=== PATIENT | female | born 1945 | race Caucasian/White ===

== ENCOUNTER 2016-11-24 15:42 | Inpatient (IN) | payer OTHER ==
[~2016-11-24] VITALS: Ht 160 cm; Wt 84.8 kg
[2016-11-24] MEDS ORDERED: IPRATRPIUM/ALBUTEROL 0.5/2.5MG 3 ML NEBU. NEB ONE (16:00)
[2016-11-24] MEDS ORDERED: methylPREDNISolone SOD SUCC PF 125 MG/2 ML VIAL. IV ONE (16:00)
[2016-11-24 16:05] LABS: BASO % 1 % (0-3); EOS % 7 % (0-3); HEMATOCRIT 43.7 % (36.0-47.0); HEMOGLOBIN 14.7 g/dL (12.0-15.5); LYMPH # 1.2 x10^3/uL (1.0-4.8); LYMPH % 15 % (24-48); MEAN CORPUSCULAR HEMOGLOBIN 29 pg (25-35); MEAN CORPUSCULAR HGB CONC 34 g/dL (31-37); MEAN CORPUSCULAR VOLUME 86 fL (79-100); MONO % 16 % (0-9); NEUT % 63 % (31-73); PLATELET COUNT 214 x10^3/uL (140-400); RED BLOOD COUNT 5.11 x10^6/uL (3.50-5.40); RED CELL DISTRIBUTION WIDTH 14.7 % (11.5-14.5); WHITE BLOOD COUNT 8.3 x10^3/uL (4.0-11.0)
--- NOTE | 2016-11-24 16:08 | RAD ---
Exam performed: One view chest. Indication: shortness of airtoday Date of Service: 11/24/2016 5:47 PM Comparison: None available. Single AP upright portable view chest findings: Cardiomediastinal silhouette is within limits of normal. No acute infiltrates, effusion or pneumothorax is detected. The bony structures are normal. Impression: No acute cardiopulmonary process is detected.
[2016-11-24 16:25] LABS: CALCIUM 9.7 mg/dL (8.5-10.1); GFR 54.5; POTASSIUM 4.4 mmol/L (3.5-5.1)
[2016-11-24 16:31] LABS: ALBUMIN 3.3 g/dL (3.4-5.0); ALBUMIN/GLOBULIN RATIO 0.7 (1.0-1.7); TOTAL BILIRUBIN 0.3 mg/dL (0.2-1.0); TOTAL PROTEIN 7.9 g/dL (6.4-8.2)
[2016-11-24 16:39] LABS: OBC FLU VALID
[2016-11-24 16:42] LABS: CKMB INDEX 1.7 % (0-4); CKMB MASS 1.8 ng/mL (0.0-3.6)
--- NOTE | 2016-11-24 16:49 | PHYS DOC ---
Past Medical History Past Medical History: COPD, Depression, High Cholesterol, Hypertension Past Surgical History: Hysterectomy, Tonsillectomy Alcohol Use: None Drug Use: None Adult General Chief Complaint Chief Complaint: SHORTNESS OF BREATH HPI HPI Patient is a 71 year old female brought to the ED by ambulance with the complaint of shortness of air. The patient has been becoming more short of air since Saturday. She is much worse today. Her family helped her to the car and they were given a bring her to the ED but she became so short of air that they ended up calling 911. She does have a history of COPD. She does not Use home oxygen. She does have inhalers at home. She has not had fever or chills, she has had a cough. She hasn't been hospitalized for COPD. PCP [facility] in [place] Review of Systems Review of Systems Constitutional: Denies fever or chills [] Eyes: Denies change in visual acuity, redness, or eye pain [] HENT: Denies nasal congestion or sore throat [] Respiratory: As in history of present illness Cardiovascular: Denies chest pain GI: Denies abdominal pain, nausea, vomiting, bloody stools or diarrhea [] : Denies dysuria or hematuria [] Musculoskeletal: Denies back pain or joint pain [] Integument: Denies rash or skin lesions [] Neurologic: Denies headache, focal weakness or sensory changes [] Current Medications Current Medications Current Medications Medications (Trade) Dose Ordered Sig/Lance Start Time Stop Time Status Last Admin Dose Admin Albuterol/ Ipratropium (Duoneb) 3 ml 1X ONCE 11/24/16 16:00 11/24/16 16:01 DC 11/24/16 15:52 3 ML Methylprednisolone Sodium Succinate (Solu-Medrol 125mg Vial) 80 mg 1X ONCE 11/24/16 16:00 11/24/16 16:01 DC 11/24/16 16:03 80 MG Allergies Allergies Allergies Coded Allergies Type Severity Reaction Last Updated Verified Penicillins Allergy Intermediate RASH 11/24/16 Yes Physical Exam Physical Exam Constitutional: Elderly female sitting up on the cart getting a nebulizer treatment via oxygen mask with dyspnea but is alert and mentating normally. HENT: Normocephalic, atraumatic, bilateral external ears normal, nose normal. [ ] Eyes: conjunctiva normal, no discharge. [] Neck: Normal range of motion, no stridor. [] Cardiovascular:Heart rate regular tachycardia, no murmur [] Lungs & Thorax: Moderately decreased breath sounds throughout with prolonged expiratory phase and expiratory wheezes throughout Abdomen: Bowel sounds normal, soft, no tenderness, no masses, no pulsatile masses. [] Skin: Warm, dry, no erythema, no rash. [] Extremities: No tenderness, no cyanosis, no clubbing, ROM intact, no edema. [] Neurologic: Alert and oriented X 3, normal motor function, normal sensory function, no focal deficits noted. [] Current Patient Data Vital Signs Vital Signs Date Time Temp Pulse Resp B/P Pulse Ox O2 Delivery O2 Flow Rate FiO2 11/24/16 16:00 98 153/53 99 Aerosol Mask 11/24/16 15:52 15.0 11/24/16 15:46 98.6 30 98.6 Lab Values Laboratory Tests Test 11/24/16 15:44 11/24/16 15:47 White Blood Count 8.3x10^3/uL (4.0-11.0) Red Blood Count 5.11x10^6/uL (3.50-5.40) Hemoglobin 14.7g/dL (12.0-15.5) Hematocrit 43.7% (36.0-47.0) Mean Corpuscular Volume 86fL (79-100) Mean Corpuscular Hemoglobin 29pg (25-35) Mean Corpuscular Hemoglobin Concent 34g/dL (31-37) Red Cell Distribution Width 14.7% (11.5-14.5) H Platelet Count 214x10^3/uL (140-400) Neutrophils (%) (Auto) 63% (31-73) Lymphocytes (%) (Auto) 15% (24-48) L Monocytes (%) (Auto) 16% (0-9) H Eosinophils (%) (Auto) 7% (0-3) H Basophils (%) (Auto) 1% (0-3) Neutrophils # (Auto) 5.2x10^3uL (1.8-7.7) Lymphocytes # (Auto) 1.2x10^3/uL (1.0-4.8) Monocytes # (Auto) 1.3x10^3/uL (0.0-1.1) H Eosinophils # (Auto) 0.6x10^3/uL (0.0-0.7) Basophils # (Auto) 0.0x10^3/uL (0.0-0.2) Sodium Level 139mmol/L (136-145) Potassium Level 4.4mmol/L (3.5-5.1) Chloride Level 100mmol/L (98-107) Carbon Dioxide Level 32mmol/L (21-32) Anion Gap 7 (6-14) Blood Urea Nitrogen 15mg/dL (7-20) Creatinine 1.0mg/dL (0.6-1.0) Estimated GFR (Cockcroft-Gault) 54.5 BUN/Creatinine Ratio 15 (6-20) Glucose Level 92mg/dL (70-99) Calcium Level 9.7mg/dL (8.5-10.1) Total Bilirubin 0.3mg/dL (0.2-1.0) Aspartate Amino Transferase (AST) 19U/L (15-37) Alanine Aminotransferase (ALT) 21U/L (14-59) Alkaline Phosphatase 96U/L (46-116) Creatine Kinase 108U/L (26-192) Creatine Kinase MB (Mass) 1.8ng/mL (0.0-3.6) Creatine Kinase MB Relative Index 1.7% (0-4) Troponin I Quantitative < 0.017ng/mL (0.000-0.055) KO-[id number]-Type Natriuretic Peptide 242pg/mL (0-124) H Total Protein 7.9g/dL (6.4-8.2) Albumin 3.3g/dL (3.4-5.0) L Albumin/Globulin Ratio 0.7 (1.0-1.7) L Influenza Type A Antigen Negative (NEGATIVE) Influenza Type B Antigen Negative (NEGATIVE) Laboratory Tests 11/24/16 15:44 Laboratory Tests 11/24/16 15:44 EKG EKG 12-lead EKG read by me. Sinus tachycardia. Heart rate 101. There are no acute ST or T wave changes indicative of ischemia or infarction. No STEMI. 1550 [] Radiology/Procedures Radiology/Procedures One view portable chest x-ray read by me. No acute cardiopulmonary process. [] Course & Med Decision Making Course & Med Decision Making Pertinent Labs and Imaging studies reviewed. (See chart for details) 71-year-old lady with COPD exacerbation. She came and getting a DuoNeb via EMS and stated it had helped her quite a bit, she was given a second DuoNeb on arrival to the ED. She was given IV steroids. She continued to be hypoxic and required oxygen but it was able to be dialed down to about 2 L prior to leaving to go to the floor. Her dyspnea improved greatly at rest but she did get up and make a short walk to the bathroom and became very dyspneic prior to being sent to her room. I discussed the case with Dr. Alarcon, [facility]. She will admit the patient. I wrote bridge orders. [] Dragon Disclaimer Dragon Disclaimer This electronic medical record was generated, in whole or in part, using a voice recognition dictation system. Departure Departure Impression: Primary Impression: COPD exacerbation Disposition: ADMITTED INPATIENT Admitting Physician: So Alarcon Condition: STABLE Referrals: NAM SCHAFER (PCP) ROMAINE MACIEL MD Nov 24, 2016 16:49
--- NOTE | 2016-11-24 16:53 | ACF ---
Admission Forms Criteria COPD Clinical Indications for Admission to Inpatient Care (Place 'X' for any and all applicable criteria): Admission is indicated for ANY ONE of the following (1)(2)(3): [X]I. Acute exacerbation by high-risk comorbidity (e.g., pneumonia, dysrhythmia, heart failure, pleural effusion, pneumothorax) or severe underlying COPD (e.g., steroid dependent) [ ]II. Inpatient admission required rather than observation care (see Chronic Obstructive Pulmonary Disease: Observation Care) because of ANY ONE of the following: [ ]a) New or pre-existing signs or symptoms of COPD (eg, dyspnea or Tachypnea at rest or with minimal activity) that persist despite outpatient and observation care treatment [ ]b) New-onset hypoxemia (room air SaO2 less than 90%, PO2 less than 60 mm Hg (8.0 kPa)) that persists despite outpatient and observation care treatment [ ]c) Worsening of pre-existing hypoxemia (eg, new or increased requirement for supplemental oxygen to maintain oxygenation at baseline level) that persists despite outpatient and observation care treatment, with oxygen treatment needs performable only in acute inpatient setting [ ]d) Hypercarbia (PCO2 greater than 40 mm Hg (5.3 kPa))-induced respiratory acidosis (pH less than 7.35) that persists despite outpatient and observation care treatment [ ]e) Supplemental oxygen or respiratory treatments for over 24 hours that are performable only in acute inpatient setting [ ]f) Chest tube placement with active evacuation (e.g., suction, drainage) (5) [ ]g) Other condition, treatment or monitoring requiring inpatient admission [ ]III. Planned invasive surgical or diagnostic procedures requiring acute- care hospitalization [ ]IV. Acute respiratory failure (e.g., uncompensated hypercarbia, severe hypoxemia) [ ]V. Severe comorbid condition (e.g., severe steroid myopathy, acute vertebral fracture) that has acutely worsened pulmonary function [ ]. Confusion state, lethargy, obtundation, stupor or coma Extended stay beyond goal length of stay may be needed for (31)(32): [ ]a ) Respiratory Failure. [ ]b) Severe or persisting hypoxemia or hypercarbia [ ]c) Severe or persistent dyspnea [ ]d) Comorbidities (e.g. chronic heart failure, atrial fibrillation with rapid response, pneumonia) [ ]e) Malnutrition The original [facility] content created by [facility] has been revised. The portions of the content which have been revised are identified through the use of italic text or in bold, and [facility] has neither reviewed nor approved the modified material. All other unmodified content is copyright [facility]. Please see references footnoted in the original [facility] edition 2016 Admission Criteria Met?: Yes ESPERANZA GREENFIELD Nov 24, 2016 16:53
[2016-11-24 18:07] VITALS: BP 139/73
[2016-11-24 18:09] VITALS: BP 139/73
--- NOTE | 2016-11-24 18:25 | PDOC1 ---
History and Physical Date of Admission Date of Admission 11/24/16 Identification/Chief Complaint Chief Complaint sob Problems: Source Source: Chart review, Patient History of Present Illness History of Present Illness 71yo f, COMES for sob. Pt has copd, no home o2. smoker. was on cymbicort before, then switch to advair since insurance wont pay. as per pt, advair not helping her, so she stopped using it. only use albuterol prn. In the past 4 days, she has runny nose, mild cough, then severe sob. no chest pain, no fever, chills, N/V. no sick contact. in ER, need non breather, then change to NC 4L. pt feels ok now, still sob tho. Past Medical History Past Medical History copd Past Surgical History Past Surgical History: Hysterectomy Family History Family History: No Significant Social History Smoke: 1 pack per day ALCOHOL: social Drugs: None Current Problem List Problem List Problems Medical Problems: (1) COPD exacerbation Status: Acute Current Medications Current Medications Current Medications Medications (Trade) Dose Ordered Sig/Lance Start Time Stop Time Status Last Admin Dose Admin Albuterol/ Ipratropium (Duoneb) 3 ml RTQID 11/24/16 20:00 11/25/16 19:59 Methylprednisolone Sodium Succinate (Solu-Medrol 125mg Vial) 80 mg 1X ONCE 11/24/16 16:00 11/24/16 16:01 DC 11/24/16 16:03 80 MG Allergies Allergies Allergies Coded Allergies Type Severity Reaction Last Updated Verified Penicillins Allergy Intermediate RASH 11/24/16 Yes ROS Review of System CONSTITUTIONAL: No fever or chills EYES: No recent changes SKIN: No rash or itching CARDIOVASCULAR: No chest pain, syncope, palpitations, or edema RESPIRATORY: No SOB or cough GASTROINTESTINAL: No nausea, vomiting or abdominal pain NEUROLOGICAL: No headaches or weakness ENDOCRINE: No cold or heat intolerance GENITOURINARY: No urgency or frequency of urination MUSCULOSKELETAL: No back pain or joint pain LYMPHATICS: No enlarged lymph nodes PSYCHIATRIC: No anxiety or depression Physical Exam Physical Exam GEN.: No apparent distress. Alert and oriented. HEENT: Head is normocephalic, atraumatic NECK: Supple. LUNGS: bl decreased bs, no wheezing HEART: RRR, S1, S2 present. Peripheral pulses intact ABDOMEN: Soft, nontender. Positive bowel sounds. EXTREMITIES: Without any cyanosis. NEUROLOGIC: Normal speech, normal tone PSYCHIATRIC: Normal affect, normal mood. SKIN: No ulcerations Vitals Vitals Vital Signs Date Time Temp Pulse Resp B/P Pulse Ox O2 Delivery O2 Flow Rate FiO2 11/24/16 18:09 97.5 95 22 139/73 91 Nasal Cannula 4.0 97.5 Labs Labs Laboratory Tests Test 11/24/16 15:44 11/24/16 15:47 White Blood Count 8.3x10^3/uL (4.0-11.0) Red Blood Count 5.11x10^6/uL (3.50-5.40) Hemoglobin 14.7g/dL (12.0-15.5) Hematocrit 43.7% (36.0-47.0) Mean Corpuscular Volume 86fL (79-100) Mean Corpuscular Hemoglobin 29pg (25-35) Mean Corpuscular Hemoglobin Concent 34g/dL (31-37) Red Cell Distribution Width 14.7% (11.5-14.5) Platelet Count 214x10^3/uL (140-400) Neutrophils (%) (Auto) 63% (31-73) Lymphocytes (%) (Auto) 15% (24-48) Monocytes (%) (Auto) 16% (0-9) Eosinophils (%) (Auto) 7% (0-3) Basophils (%) (Auto) 1% (0-3) Neutrophils # (Auto) 5.2x10^3uL (1.8-7.7) Lymphocytes # (Auto) 1.2x10^3/uL (1.0-4.8) Monocytes # (Auto) 1.3x10^3/uL (0.0-1.1) Eosinophils # (Auto) 0.6x10^3/uL (0.0-0.7) Basophils # (Auto) 0.0x10^3/uL (0.0-0.2) Sodium Level 139mmol/L (136-145) Potassium Level 4.4mmol/L (3.5-5.1) Chloride Level 100mmol/L (98-107) Carbon Dioxide Level 32mmol/L (21-32) Anion Gap 7 (6-14) Blood Urea Nitrogen 15mg/dL (7-20) Creatinine 1.0mg/dL (0.6-1.0) Estimated GFR (Cockcroft-Gault) 54.5 BUN/Creatinine Ratio 15 (6-20) Glucose Level 92mg/dL (70-99) Calcium Level 9.7mg/dL (8.5-10.1) Total Bilirubin 0.3mg/dL (0.2-1.0) Aspartate Amino Transf (AST/SGOT) 19U/L (15-37) Alanine Aminotransferase (ALT/SGPT) 21U/L (14-59) Alkaline Phosphatase 96U/L (46-116) Creatine Kinase 108U/L (26-192) Creatine Kinase MB (Mass) 1.8ng/mL (0.0-3.6) Creatine Kinase MB Relative Index 1.7% (0-4) Troponin I Quantitative < 0.017ng/mL (0.000-0.055) MT-Bqo-D-Type Natriuretic Peptide 242pg/mL (0-124) Total Protein 7.9g/dL (6.4-8.2) Albumin 3.3g/dL (3.4-5.0) Albumin/Globulin Ratio 0.7 (1.0-1.7) Influenza Type A Antigen Negative (NEGATIVE) Influenza Type B Antigen Negative (NEGATIVE) Laboratory Tests Test 11/24/16 15:44 11/24/16 15:47 White Blood Count 8.3x10^3/uL (4.0-11.0) Red Blood Count 5.11x10^6/uL (3.50-5.40) Hemoglobin 14.7g/dL (12.0-15.5) Hematocrit 43.7% (36.0-47.0) Mean Corpuscular Volume 86fL (79-100) Mean Corpuscular Hemoglobin 29pg (25-35) Mean Corpuscular Hemoglobin Concent 34g/dL (31-37) Red Cell Distribution Width 14.7% (11.5-14.5) Platelet Count 214x10^3/uL (140-400) Neutrophils (%) (Auto) 63% (31-73) Lymphocytes (%) (Auto) 15% (24-48) Monocytes (%) (Auto) 16% (0-9) Eosinophils (%) (Auto) 7% (0-3) Basophils (%) (Auto) 1% (0-3) Neutrophils # (Auto) 5.2x10^3uL (1.8-7.7) Lymphocytes # (Auto) 1.2x10^3/uL (1.0-4.8) Monocytes # (Auto) 1.3x10^3/uL (0.0-1.1) Eosinophils # (Auto) 0.6x10^3/uL (0.0-0.7) Basophils # (Auto) 0.0x10^3/uL (0.0-0.2) Sodium Level 139mmol/L (136-145) Potassium Level 4.4mmol/L (3.5-5.1) Chloride Level 100mmol/L (98-107) Carbon Dioxide Level 32mmol/L (21-32) Anion Gap 7 (6-14) Blood Urea Nitrogen 15mg/dL (7-20) Creatinine 1.0mg/dL (0.6-1.0) Estimated GFR (Cockcroft-Gault) 54.5 BUN/Creatinine Ratio 15 (6-20) Glucose Level 92mg/dL (70-99) Calcium Level 9.7mg/dL (8.5-10.1) Total Bilirubin 0.3mg/dL (0.2-1.0) Aspartate Amino Transf (AST/SGOT) 19U/L (15-37) Alanine Aminotransferase (ALT/SGPT) 21U/L (14-59) Alkaline Phosphatase 96U/L (46-116) Creatine Kinase 108U/L (26-192) Creatine Kinase MB (Mass) 1.8ng/mL (0.0-3.6) Creatine Kinase MB Relative Index 1.7% (0-4) Troponin I Quantitative < 0.017ng/mL (0.000-0.055) KS-Vvx-D-Type Natriuretic Peptide 242pg/mL (0-124) Total Protein 7.9g/dL (6.4-8.2) Albumin 3.3g/dL (3.4-5.0) Albumin/Globulin Ratio 0.7 (1.0-1.7) Influenza Type A Antigen Negative (NEGATIVE) Influenza Type B Antigen Negative (NEGATIVE) VTE Prophylaxis Ordered VTE Prophylaxis Devices: Yes VTE Pharmacological Prophylaxi: Yes Assessment/Plan Assessment/Plan 1. acute hypoxic resp failure with 2 2. copd exacerbation 3. tobaccoism 4. hld 5. htn 6. depression 7. mild malnutrition plan: 1. pulm consult 2. duoneb, doxy prednisone 40mg daily 3. robitussin prn 4. pulmicort dvt, gi ppx educate to stop smoke AME ESPINOZA MD Nov 24, 2016 18:25
[2016-11-24] MEDS ORDERED: ONDANSETRON PF 4 MG/2 ML VIAL. IV PRN (18:30)
[2016-11-24] MEDS ORDERED: ACETAMINOPHEN 325 MG TABLET. PO PRN (18:30)
[2016-11-24] MEDS ORDERED: ALBUTEROL SULFATE 2.5 MG/3 ML NEBU. NEB PRN (18:30)
[2016-11-24] MEDS: BUDESONIDE 0.5 MG/2 ML NEBU NEB SCH (19:23)
[2016-11-24] MEDS: IPRATRPIUM/ALBUTEROL 0.5/2.5MG 3 ML NEBU. NEB SCH ×2 (19:23)
[2016-11-24] MEDS: DOXYCYCLINE HYCLATE 100 MG TABLET PO SCH (20:17)
[2016-11-24] MEDS: FAMOTIDINE 20 MG TABLET. PO SCH (20:17)
[2016-11-24] MEDS: ENOXAPARIN 40 MG/0.4 ML DISP.SYRIN. SQ SCH (20:17)
[2016-11-24 22:32] VITALS: BP 140/56
[2016-11-24] MEDS: DIPHENHYDRAMINE HCL 25 MG CAPSULE PO PRN (23:42)
[2016-11-25 03:00] VITALS: BP 153/54
[2016-11-25 07:00] VITALS: BP 124/54
[2016-11-25] MEDS: DOXYCYCLINE HYCLATE 100 MG TABLET PO SCH ×2 (07:51→20:00)
[2016-11-25] MEDS: PREDNISONE 20 MG TABLET PO SCH (07:52)
[2016-11-25] MEDS: IPRATRPIUM/ALBUTEROL 0.5/2.5MG 3 ML NEBU. NEB SCH ×6 (07:56→20:00)
[2016-11-25] MEDS: BUDESONIDE 0.5 MG/2 ML NEBU NEB SCH (07:56)
--- NOTE | 2016-11-25 09:37 | PDOC ---
Provider Note Provider Note dictated AECOPD FRANCES CHAPARRO MD Nov 25, 2016 09:37
--- NOTE | 2016-11-25 10:44 | CONS ---
DATE OF CONSULTATION: ATTENDING PHYSICIAN: Dr. Alarcon. REASON FOR CONSULTATION: Dyspnea. HISTORY OF PRESENT ILLNESS: This is a 71-year-old female, who has been a smoker since age 10, continues to smoke 1 pack per day. Normally, she is not on oxygen. She presented to the hospital with a 4-day history of shortness of breath. She has a cough, which has been nonproductive. No fever, no chills, no chest pains, no headaches. No nausea, vomiting or diarrhea. The patient was initially placed on nonrebreather mask. Currently, she is on 4 liters of oxygen. Influenza screen was negative. Chest x-ray was clear. She was started on bronchodilators and received a dose of steroids. I have been asked to see her for further evaluation. PAST MEDICAL HISTORY: Significant for history of COPD with ongoing tobaccoism since age 10. Unknown FEV1. PAST SURGICAL HISTORY: Hysterectomy. FAMILY HISTORY: Noncontributory to lungs. ALLERGIES: PENICILLIN. CURRENT MEDICATIONS: Reviewed as listed in the MRAD. REVIEW OF SYSTEMS: Twelve-point systems obtained. Pertinent positives discussed in my history of present illness, otherwise noncontributory. All systems that were negative were reviewed as well. PHYSICAL EXAMINATION: GENERAL: She is awake, following commands. VITAL SIGNS: Blood pressure is stable. Pulse ox 92% on 4 liters, afebrile. HEENT: Sclerae nonicteric. NECK: Supple. LUNGS: Diminished breath sounds bilaterally. No wheezing. CARDIOVASCULAR: Regular rate and rhythm. ABDOMEN: Soft, nontender. EXTREMITIES: No pitting edema. LABORATORY DATA: Reviewed. BUN 15, creatinine 1.0. Influenza screen negative. White cell count 8.3, hemoglobin 14.7, platelets are 214. IMPRESSION: 1. Dyspnea with acute hypoxic respiratory failure secondary to acute exacerbation of chronic obstructive pulmonary disease in the patient, who has been smoking since age 10 and continues to smoke cigarettes. 2. Possible acute viral bronchitis. Chest x-ray is clear. 3. Underlying obesity. RECOMMENDATIONS: 1. Smoking cessation counseling provided. 2. Continue DuoNeb. 3. Continue Pulmicort. 4. Continue with oral prednisone taper. 5. Taper oxygen slowly. Keep sats 92% and above. 6. We will need a 6-minute walk test at the time of discharge. 7. PFTs as an outpatient. FRANCES CHAPARRO MD DR: ODILIA/marlon JOB#: [id number] / [id number] E Wilcox MDD
[2016-11-25 11:00] VITALS: BP 135/57
[2016-11-25] MEDS ORDERED: FLUT1DIS5 IH (11:39)
[2016-11-25] MEDS ORDERED: SIMV20TA3 PO (11:39)
[2016-11-25] MEDS ORDERED: LISI-334 PO (11:39)
[2016-11-25] MEDS ORDERED: MIRT30TA3 PO (11:39)
[2016-11-25] MEDS ORDERED: PROAIR HFA8.5 GM INH (11:39)
--- NOTE | 2016-11-25 12:48 | EKG ---
[facility] [address] [place] [address] Test Date: 2016-11-24 Test Time: 15:50:46 Pat Name: NOHEMY SCHREIBER Department: Room: Gender: F Artist'S Representative: : 1945 Requested By: ROMAINE MACIEL Order Number: [id number] Reading MD: Measurements Intervals [place] Rate: 101 P: 81 OK: 168 QRS: 42 QRSD: 76 T: 63 QT: 350 QTc: 455 Interpretive Statements SINUS TACHYCARDIA RIGHT ATRIAL ENLARGEMENT QRS(T) CONTOUR ABNORMALITY CONSISTENT WITH INFERIOR INFARCT PROBABLY OLD T ABNORMALITY IN HIGH LATERAL LEADS RI6.01 Unconfirmed report No previous ECG available for comparison
[2016-11-25] MEDS ORDERED: NON FORMULARY ITEM (Albuterol Sulfate (Proair Hfa Inhaler) 1 PUFF) INH PRN (14:00)
--- NOTE | 2016-11-25 14:29 | PDOC ---
PROGRESS NOTES Chief Complaint Chief Complaint 1. acute hypoxic resp failure with 2 2. copd exacerbation 3. tobaccoism 4. hld 5. htn 6. depression 7. mild malnutrition plan: 1. pulm consult 2. duoneb, doxy prednisone 40mg daily 3. robitussin prn 4. pulmicort dvt, gi ppx educate to stop smoke hope dc tmr, need 6min walk History of Present Illness History of Present Illness on NC 3 L, sob better + wheezing Vitals Vitals Vital Signs Date Time Temp Pulse Resp B/P Pulse Ox O2 Delivery O2 Flow Rate FiO2 11/25/16 11:39 92 Nasal Cannula 4.0 11/25/16 11:00 96.4 74 20 135/57 96.4 Physical Exam General: Alert, Oriented X3, Cooperative Heart: Regular rate, Normal S1, Normal S2 Lungs: Wheezing (bl mild) Abdomen: Normal bowel sounds, Soft Extremities: No clubbing, No cyanosis Labs LABS Laboratory Tests Test 11/24/16 15:44 11/24/16 15:47 White Blood Count 8.3x10^3/uL (4.0-11.0) Red Blood Count 5.11x10^6/uL (3.50-5.40) Hemoglobin 14.7g/dL (12.0-15.5) Hematocrit 43.7% (36.0-47.0) Mean Corpuscular Volume 86fL (79-100) Mean Corpuscular Hemoglobin 29pg (25-35) Mean Corpuscular Hemoglobin Concent 34g/dL (31-37) Red Cell Distribution Width 14.7% (11.5-14.5) Platelet Count 214x10^3/uL (140-400) Neutrophils (%) (Auto) 63% (31-73) Lymphocytes (%) (Auto) 15% (24-48) Monocytes (%) (Auto) 16% (0-9) Eosinophils (%) (Auto) 7% (0-3) Basophils (%) (Auto) 1% (0-3) Neutrophils # (Auto) 5.2x10^3uL (1.8-7.7) Lymphocytes # (Auto) 1.2x10^3/uL (1.0-4.8) Monocytes # (Auto) 1.3x10^3/uL (0.0-1.1) Eosinophils # (Auto) 0.6x10^3/uL (0.0-0.7) Basophils # (Auto) 0.0x10^3/uL (0.0-0.2) Sodium Level 139mmol/L (136-145) Potassium Level 4.4mmol/L (3.5-5.1) Chloride Level 100mmol/L (98-107) Carbon Dioxide Level 32mmol/L (21-32) Anion Gap 7 (6-14) Blood Urea Nitrogen 15mg/dL (7-20) Creatinine 1.0mg/dL (0.6-1.0) Estimated GFR (Cockcroft-Gault) 54.5 BUN/Creatinine Ratio 15 (6-20) Glucose Level 92mg/dL (70-99) Calcium Level 9.7mg/dL (8.5-10.1) Total Bilirubin 0.3mg/dL (0.2-1.0) Aspartate Amino Transf (AST/SGOT) 19U/L (15-37) Alanine Aminotransferase (ALT/SGPT) 21U/L (14-59) Alkaline Phosphatase 96U/L (46-116) Creatine Kinase 108U/L (26-192) Creatine Kinase MB (Mass) 1.8ng/mL (0.0-3.6) Creatine Kinase MB Relative Index 1.7% (0-4) Troponin I Quantitative < 0.017ng/mL (0.000-0.055) AY-Snj-M-Type Natriuretic Peptide 242pg/mL (0-124) Total Protein 7.9g/dL (6.4-8.2) Albumin 3.3g/dL (3.4-5.0) Albumin/Globulin Ratio 0.7 (1.0-1.7) Influenza Type A Antigen Negative (NEGATIVE) Influenza Type B Antigen Negative (NEGATIVE) Review of Systems Review of Systems no fever, chills, chest pain Assessment and Plan Assessmemt and Plan Problems Medical Problems: (1) COPD exacerbation Status: Acute Problems: Comment Review of Relevant I have reviewed the following items anand (where applicable) has been applied. Labs Laboratory Tests Test 11/24/16 15:44 11/24/16 15:47 White Blood Count 8.3x10^3/uL (4.0-11.0) Red Blood Count 5.11x10^6/uL (3.50-5.40) Hemoglobin 14.7g/dL (12.0-15.5) Hematocrit 43.7% (36.0-47.0) Mean Corpuscular Volume 86fL (79-100) Mean Corpuscular Hemoglobin 29pg (25-35) Mean Corpuscular Hemoglobin Concent 34g/dL (31-37) Red Cell Distribution Width 14.7% (11.5-14.5) Platelet Count 214x10^3/uL (140-400) Neutrophils (%) (Auto) 63% (31-73) Lymphocytes (%) (Auto) 15% (24-48) Monocytes (%) (Auto) 16% (0-9) Eosinophils (%) (Auto) 7% (0-3) Basophils (%) (Auto) 1% (0-3) Neutrophils # (Auto) 5.2x10^3uL (1.8-7.7) Lymphocytes # (Auto) 1.2x10^3/uL (1.0-4.8) Monocytes # (Auto) 1.3x10^3/uL (0.0-1.1) Eosinophils # (Auto) 0.6x10^3/uL (0.0-0.7) Basophils # (Auto) 0.0x10^3/uL (0.0-0.2) Sodium Level 139mmol/L (136-145) Potassium Level 4.4mmol/L (3.5-5.1) Chloride Level 100mmol/L (98-107) Carbon Dioxide Level 32mmol/L (21-32) Anion Gap 7 (6-14) Blood Urea Nitrogen 15mg/dL (7-20) Creatinine 1.0mg/dL (0.6-1.0) Estimated GFR (Cockcroft-Gault) 54.5 BUN/Creatinine Ratio 15 (6-20) Glucose Level 92mg/dL (70-99) Calcium Level 9.7mg/dL (8.5-10.1) Total Bilirubin 0.3mg/dL (0.2-1.0) Aspartate Amino Transf (AST/SGOT) 19U/L (15-37) Alanine Aminotransferase (ALT/SGPT) 21U/L (14-59) Alkaline Phosphatase 96U/L (46-116) Creatine Kinase 108U/L (26-192) Creatine Kinase MB (Mass) 1.8ng/mL (0.0-3.6) Creatine Kinase MB Relative Index 1.7% (0-4) Troponin I Quantitative < 0.017ng/mL (0.000-0.055) AN-Drs-Q-Type Natriuretic Peptide 242pg/mL (0-124) Total Protein 7.9g/dL (6.4-8.2) Albumin 3.3g/dL (3.4-5.0) Albumin/Globulin Ratio 0.7 (1.0-1.7) Influenza Type A Antigen Negative (NEGATIVE) Influenza Type B Antigen Negative (NEGATIVE) Laboratory Tests Test 11/24/16 15:44 11/24/16 15:47 White Blood Count 8.3x10^3/uL (4.0-11.0) Red Blood Count 5.11x10^6/uL (3.50-5.40) Hemoglobin 14.7g/dL (12.0-15.5) Hematocrit 43.7% (36.0-47.0) Mean Corpuscular Volume 86fL (79-100) Mean Corpuscular Hemoglobin 29pg (25-35) Mean Corpuscular Hemoglobin Concent 34g/dL (31-37) Red Cell Distribution Width 14.7% (11.5-14.5) Platelet Count 214x10^3/uL (140-400) Neutrophils (%) (Auto) 63% (31-73) Lymphocytes (%) (Auto) 15% (24-48) Monocytes (%) (Auto) 16% (0-9) Eosinophils (%) (Auto) 7% (0-3) Basophils (%) (Auto) 1% (0-3) Neutrophils # (Auto) 5.2x10^3uL (1.8-7.7) Lymphocytes # (Auto) 1.2x10^3/uL (1.0-4.8) Monocytes # (Auto) 1.3x10^3/uL (0.0-1.1) Eosinophils # (Auto) 0.6x10^3/uL (0.0-0.7) Basophils # (Auto) 0.0x10^3/uL (0.0-0.2) Sodium Level 139mmol/L (136-145) Potassium Level 4.4mmol/L (3.5-5.1) Chloride Level 100mmol/L (98-107) Carbon Dioxide Level 32mmol/L (21-32) Anion Gap 7 (6-14) Blood Urea Nitrogen 15mg/dL (7-20) Creatinine 1.0mg/dL (0.6-1.0) Estimated GFR (Cockcroft-Gault) 54.5 BUN/Creatinine Ratio 15 (6-20) Glucose Level 92mg/dL (70-99) Calcium Level 9.7mg/dL (8.5-10.1) Total Bilirubin 0.3mg/dL (0.2-1.0) Aspartate Amino Transf (AST/SGOT) 19U/L (15-37) Alanine Aminotransferase (ALT/SGPT) 21U/L (14-59) Alkaline Phosphatase 96U/L (46-116) Creatine Kinase 108U/L (26-192) Creatine Kinase MB (Mass) 1.8ng/mL (0.0-3.6) Creatine Kinase MB Relative Index 1.7% (0-4) Troponin I Quantitative < 0.017ng/mL (0.000-0.055) VA-Xeh-W-Type Natriuretic Peptide 242pg/mL (0-124) Total Protein 7.9g/dL (6.4-8.2) Albumin 3.3g/dL (3.4-5.0) Albumin/Globulin Ratio 0.7 (1.0-1.7) Influenza Type A Antigen Negative (NEGATIVE) Influenza Type B Antigen Negative (NEGATIVE) Medications Current Medications Albuterol/ Ipratropium (Duoneb) 3 ml 1X ONCE NEB Last administered on 15:52; Start 11/24/16 at 16:00; Stop 11/24/16 at 16:01; Status DC Methylprednisolone Sodium Succinate (Solu-Medrol 125mg Vial) 80 mg 1X ONCE IV Last administered on 11/24/16 16:03; Start 11/24/16 at 16:00; Stop 11/24/16 at 16:01; Status DC Albuterol/ Ipratropium (Duoneb) 3 ml RTQID NEB Last administered on 11/25/16 11:37; Start 11/24/16 at 20:00; Stop 11/25/16 at 19:59 Acetaminophen (Tylenol) 650 mg PRN Q6HRS PRN PO MILD PAIN / TEMP; Start at 18:30 Ondansetron HCl (Zofran) 4 mg PRN Q6HRS PRN IV NAUSEA/VOMITING; Start 11/24/16 at 18:30 Albuterol/ Ipratropium (Duoneb) 3 ml RTQID NEB ; Start 11/24/16 at 20:00 Albuterol Sulfate (Ventolin Neb Soln) 2.5 mg PRN Q4HRS PRN NEB SHORTNESS OF BREATH; Start 11/24/16 at 18:30 Prednisone (Prednisone) 40 mg DAILY PO Last administered on 11/25/16 07:52; Start 11/25/16 at 09:00 Budesonide (Pulmicort) 0.5 mg RTBID NEB Last administered on 11/25/16 07:56; Start 11/24/16 at 20:00 Doxycycline Hyclate (Vibra-Tab) 100 mg BID PO Last administered on 11/25/16 07 :51; Start 11/24/16 at 21:00 Guaifenesin (Robitussin) 200 mg PRN Q4HRS PRN PO COUGH; Start 11/24/16 at 18:30 Enoxaparin Sodium (Lovenox 40mg Syringe) 40 mg Q24H SQ Last administered on 20:17; Start 11/24/16 at 21:00 Famotidine (Pepcid) 20 mg QHS PO Last administered on 11/24/16 20:17; Start at 21:00 Diphenhydramine HCl (Benadryl) 25 mg PRN Q6HRS PRN PO ITCHING Last administered on 11/24/16 23:42; Start 11/24/16 at 23:15 Lisinopril (Prinivil) 20 mg DAILY PO ; Start 11/25/16 at 14:30 Simvastatin (Zocor) 20 mg QHS PO ; Start 11/25/16 at 21:00 Non-Formulary Medication 1 puff PRN Q6HRS PRN INH SHORTNESS OF BREATH; Start at 14:00; Status UNV Non-Formulary Medication 1 puff BID IH ; Start 11/25/16 at 21:00; Status UNV Mirtazapine (Remeron) 30 mg QHS PO ; Start 11/25/16 at 21:00 Albuterol Sulfate (Ventolin Neb Soln) 2.5 mg PRN Q6HRS PRN NEB SHORTNESS OF BREATH; Start 11/25/16 at 14:30 Albuterol Sulfate (Ventolin Neb Soln) 2.5 mg RTQID NEB ; Start 11/25/16 at 16:00 Budesonide (Pulmicort) 0.5 mg RTBID NEB ; Start 11/25/16 at 20:00 Active Scripts Active Reported Proair Hfa Inhaler (Albuterol Sulfate) 8.5 Gm Hfa.aer.ad 1 Puff INH PRN Q6HRS PRN Advair 500-50 Diskus (Fluticasone/Salmeterol) 1 Each Disk.w.dev 1 Puff IH BID Mirtazapine 30 Mg Tablet 1 Tab PO QHS Simvastatin 20 Mg Tablet 1 Tab PO QHS Lisinopril 20 Mg Tablet 1 Tab PO DAILY Vitals/I & O Vital Sign - Last 24 Hours 11/24/16 11/24/16 11/24/16 11/24/16 15:46 15:52 16:00 17:00 Temp 98.6 98.6 Pulse 104 98 92 Resp 30 B/P 180/68 153/53 140/60 Pulse Ox 99 99 91 O2 Delivery Aerosol Mask Aerosol Mask Aerosol Mask Nasal Cannula O2 Flow Rate 15.0 3 11/24/16 11/24/16 11/24/16 11/24/16 18:07 18:09 19:00 19:26 Temp 97.5 97.5 97.5 97.5 Pulse 95 95 Resp 22 22 B/P 139/73 139/73 Pulse Ox 91 91 O2 Delivery Nasal Cannula Nasal Cannula Nasal Cannula Nasal Cannula O2 Flow Rate 4.0 4.0 4.0 4.0 11/24/16 11/24/16 11/25/16 11/25/16 19:27 22:32 03:00 07:00 Temp 97.7 97.7 96.1 97.7 97.7 96.1 Pulse 80 77 76 Resp 19 20 22 B/P 140/56 153/54 124/54 Pulse Ox 95 94 92 O2 Delivery Nasal Cannula Nasal Cannula Nasal Cannula Nasal Cannula O2 Flow Rate 4.0 4.0 4.0 4.0 11/25/16 11/25/16 11/25/16 11/25/16 07:58 08:00 11:00 11:39 Temp 96.4 96.4 Pulse 74 Resp 20 B/P 135/57 Pulse Ox 92 92 92 O2 Delivery Nasal Cannula Nasal Cannula Nasal Cannula Nasal Cannula O2 Flow Rate 4.0 4.0 4.0 4.0 Intake and Output 11/24/16 11/24/16 11/25/16 15:00 23:00 07:00 Intake Total 250 ml Balance 250 ml AME ESPINOZA MD Nov 25, 2016 14:29
[2016-11-25] MEDS ORDERED: ALBUTEROL SULFATE 2.5 MG/3 ML NEBU. NEB PRN (14:30)
[2016-11-25] MEDS: LISINOPRIL 20 MG TABLET PO SCH (14:33)
[2016-11-25 15:00] VITALS: BP 128/55
[2016-11-25] MEDS: ALBUTEROL SULFATE 2.5 MG/3 ML NEBU. NEB SCH ×2 (16:00→20:52)
[2016-11-25 19:50] VITALS: BP 115/55
[2016-11-25] MEDS: FAMOTIDINE 20 MG TABLET. PO SCH (20:00)
[2016-11-25] MEDS ORDERED: BUDESONIDE 0.5 MG/2 ML NEBU NEB SCH (20:00)
[2016-11-25] MEDS: SIMVASTATIN 20 MG TABLET PO SCH (20:00)
[2016-11-25] MEDS: MIRTAZAPINE 15 MG TABLET PO SCH (20:00)
[2016-11-25] MEDS: ENOXAPARIN 40 MG/0.4 ML DISP.SYRIN. SQ SCH (20:02)
[2016-11-25] MEDS: GUAIFENESIN 200 MG/10 ML LIQUID. PO PRN (20:07)
[2016-11-25] MEDS ORDERED: NON FORMULARY ITEM (Fluticasone/Salmeterol (Advair 500-50 Diskus) 1 PUFF) IH SCH (21:00)
[2016-11-25 23:36] VITALS: BP 121/62
[2016-11-26] MEDS: GUAIFENESIN 200 MG/10 ML LIQUID. PO PRN ×3 (00:37→22:34)
[2016-11-26] MEDS: DIPHENHYDRAMINE HCL 25 MG CAPSULE PO PRN (00:41)
[2016-11-26] MEDS ORDERED: ALBUTEROL SULFATE 2.5 MG/3 ML NEBU. NEB PRN (02:45)
[2016-11-26 03:38] VITALS: BP 120/65
[2016-11-26 04:45] LABS: BASO % 1 % (0-3); EOS % 1 % (0-3); HEMATOCRIT 41.5 % (36.0-47.0); LYMPH # 1.2 x10^3/uL (1.0-4.8); LYMPH % 16 % (24-48); MEAN CORPUSCULAR HEMOGLOBIN 29 pg (25-35); MEAN CORPUSCULAR HGB CONC 34 g/dL (31-37); MEAN CORPUSCULAR VOLUME 85 fL (79-100); MONO % 12 % (0-9); NEUT % 71 % (31-73); PLATELET COUNT 213 x10^3/uL (140-400); RED BLOOD COUNT 4.86 x10^6/uL (3.50-5.40); RED CELL DISTRIBUTION WIDTH 14.7 % (11.5-14.5); WHITE BLOOD COUNT 7.8 x10^3/uL (4.0-11.0)
[2016-11-26 05:03] LABS: CALCIUM 8.9 mg/dL (8.5-10.1); CREATININE 0.9 mg/dL (0.6-1.0); GFR 61.5
[2016-11-26 07:20] VITALS: BP 121/51
[2016-11-26] MEDS: ALBUTEROL SULFATE 2.5 MG/3 ML NEBU. NEB SCH ×4 (07:21→20:50)
[2016-11-26] MEDS: DOXYCYCLINE HYCLATE 100 MG TABLET PO SCH ×2 (08:26→20:08)
[2016-11-26] MEDS: PREDNISONE 20 MG TABLET PO SCH (08:26)
[2016-11-26] MEDS: LISINOPRIL 20 MG TABLET PO SCH (08:27)
[2016-11-26 11:11] VITALS: BP 125/50
--- NOTE | 2016-11-26 11:18 | PDOC ---
PROGRESS NOTES Chief Complaint Chief Complaint 1. Acute hypoxic respiratory failure with 2 2. Copd exacerbation 3. tobaccoism 4. HLP 5. HTN 6. Depression PLAN IV SOLUMDEROL DUONEB Q 6HRS SUPPLEMENTAL OXYGEN PULMONARY FOLLOWING CLINICALLY NOT IMPROVED History of Present Illness History of Present Illness on NC 3 L, sob better + wheezing Vitals Vitals Vital Signs Date Time Temp Pulse Resp B/P Pulse Ox O2 Delivery O2 Flow Rate FiO2 11/26/16 11:11 97.5 85 16 125/50 93 Nasal Cannula 4.0 97.5 Physical Exam General: Alert, Oriented X3, Cooperative Heart: Regular rate, Normal S1, Normal S2 Lungs: Wheezing (bl mild) Abdomen: Normal bowel sounds, Soft Extremities: No clubbing, No cyanosis Labs LABS Laboratory Tests Test 11/26/16 03:20 White Blood Count 7.8x10^3/uL (4.0-11.0) Red Blood Count 4.86x10^6/uL (3.50-5.40) Hemoglobin 14.0g/dL (12.0-15.5) Hematocrit 41.5% (36.0-47.0) Mean Corpuscular Volume 85fL (79-100) Mean Corpuscular Hemoglobin 29pg (25-35) Mean Corpuscular Hemoglobin Concent 34g/dL (31-37) Red Cell Distribution Width 14.7% (11.5-14.5) Platelet Count 213x10^3/uL (140-400) Neutrophils (%) (Auto) 71% (31-73) Lymphocytes (%) (Auto) 16% (24-48) Monocytes (%) (Auto) 12% (0-9) Eosinophils (%) (Auto) 1% (0-3) Basophils (%) (Auto) 1% (0-3) Neutrophils # (Auto) 5.5x10^3uL (1.8-7.7) Lymphocytes # (Auto) 1.2x10^3/uL (1.0-4.8) Monocytes # (Auto) 0.9x10^3/uL (0.0-1.1) Eosinophils # (Auto) 0.0x10^3/uL (0.0-0.7) Basophils # (Auto) 0.0x10^3/uL (0.0-0.2) Sodium Level 138mmol/L (136-145) Potassium Level 4.0mmol/L (3.5-5.1) Chloride Level 101mmol/L (98-107) Carbon Dioxide Level 31mmol/L (21-32) Anion Gap 6 (6-14) Blood Urea Nitrogen 20mg/dL (7-20) Creatinine 0.9mg/dL (0.6-1.0) Estimated GFR (Cockcroft-Gault) 61.5 Glucose Level 80mg/dL (70-99) Calcium Level 8.9mg/dL (8.5-10.1) Assessment and Plan Assessmemt and Plan Problems Medical Problems: (1) COPD exacerbation Status: Acute Problems: Comment Review of Relevant I have reviewed the following items anand (where applicable) has been applied. Labs Laboratory Tests Test 11/24/16 15:44 11/24/16 15:47 11/26/16 03:20 White Blood Count 8.3x10^3/uL (4.0-11.0) 7.8x10^3/uL (4.0-11.0) Red Blood Count 5.11x10^6/uL (3.50-5.40) 4.86x10^6/uL (3.50-5.40) Hemoglobin 14.7g/dL (12.0-15.5) 14.0g/dL (12.0-15.5) Hematocrit 43.7% (36.0-47.0) 41.5% (36.0-47.0) Mean Corpuscular Volume 86fL (79-100) 85fL (79-100) Mean Corpuscular Hemoglobin 29pg (25-35) 29pg (25-35) Mean Corpuscular Hemoglobin Concent 34g/dL (31-37) 34g/dL (31-37) Red Cell Distribution Width 14.7% (11.5-14.5) 14.7% (11.5-14.5) Platelet Count 214x10^3/uL (140-400) 213x10^3/uL (140-400) Neutrophils (%) (Auto) 63% (31-73) 71% (31-73) Lymphocytes (%) (Auto) 15% (24-48) 16% (24-48) Monocytes (%) (Auto) 16% (0-9) 12% (0-9) Eosinophils (%) (Auto) 7% (0-3) 1% (0-3) Basophils (%) (Auto) 1% (0-3) 1% (0-3) Neutrophils # (Auto) 5.2x10^3uL (1.8-7.7) 5.5x10^3uL (1.8-7.7) Lymphocytes # (Auto) 1.2x10^3/uL (1.0-4.8) 1.2x10^3/uL (1.0-4.8) Monocytes # (Auto) 1.3x10^3/uL (0.0-1.1) 0.9x10^3/uL (0.0-1.1) Eosinophils # (Auto) 0.6x10^3/uL (0.0-0.7) 0.0x10^3/uL (0.0-0.7) Basophils # (Auto) 0.0x10^3/uL (0.0-0.2) 0.0x10^3/uL (0.0-0.2) Sodium Level 139mmol/L (136-145) 138mmol/L (136-145) Potassium Level 4.4mmol/L (3.5-5.1) 4.0mmol/L (3.5-5.1) Chloride Level 100mmol/L (98-107) 101mmol/L (98-107) Carbon Dioxide Level 32mmol/L (21-32) 31mmol/L (21-32) Anion Gap 7 (6-14) 6 (6-14) Blood Urea Nitrogen 15mg/dL (7-20) 20mg/dL (7-20) Creatinine 1.0mg/dL (0.6-1.0) 0.9mg/dL (0.6-1.0) Estimated GFR (Cockcroft-Gault) 54.5 61.5 BUN/Creatinine Ratio 15 (6-20) Glucose Level 92mg/dL (70-99) 80mg/dL (70-99) Calcium Level 9.7mg/dL (8.5-10.1) 8.9mg/dL (8.5-10.1) Total Bilirubin 0.3mg/dL (0.2-1.0) Aspartate Amino Transf (AST/SGOT) 19U/L (15-37) Alanine Aminotransferase (ALT/SGPT) 21U/L (14-59) Alkaline Phosphatase 96U/L (46-116) Creatine Kinase 108U/L (26-192) Creatine Kinase MB (Mass) 1.8ng/mL (0.0-3.6) Creatine Kinase MB Relative Index 1.7% (0-4) Troponin I Quantitative < 0.017ng/mL (0.000-0.055) MS-Jkc-K-Type Natriuretic Peptide 242pg/mL (0-124) Total Protein 7.9g/dL (6.4-8.2) Albumin 3.3g/dL (3.4-5.0) Albumin/Globulin Ratio 0.7 (1.0-1.7) Influenza Type A Antigen Negative (NEGATIVE) Influenza Type B Antigen Negative (NEGATIVE) Laboratory Tests Test 11/26/16 03:20 White Blood Count 7.8x10^3/uL (4.0-11.0) Red Blood Count 4.86x10^6/uL (3.50-5.40) Hemoglobin 14.0g/dL (12.0-15.5) Hematocrit 41.5% (36.0-47.0) Mean Corpuscular Volume 85fL (79-100) Mean Corpuscular Hemoglobin 29pg (25-35) Mean Corpuscular Hemoglobin Concent 34g/dL (31-37) Red Cell Distribution Width 14.7% (11.5-14.5) Platelet Count 213x10^3/uL (140-400) Neutrophils (%) (Auto) 71% (31-73) Lymphocytes (%) (Auto) 16% (24-48) Monocytes (%) (Auto) 12% (0-9) Eosinophils (%) (Auto) 1% (0-3) Basophils (%) (Auto) 1% (0-3) Neutrophils # (Auto) 5.5x10^3uL (1.8-7.7) Lymphocytes # (Auto) 1.2x10^3/uL (1.0-4.8) Monocytes # (Auto) 0.9x10^3/uL (0.0-1.1) Eosinophils # (Auto) 0.0x10^3/uL (0.0-0.7) Basophils # (Auto) 0.0x10^3/uL (0.0-0.2) Sodium Level 138mmol/L (136-145) Potassium Level 4.0mmol/L (3.5-5.1) Chloride Level 101mmol/L (98-107) Carbon Dioxide Level 31mmol/L (21-32) Anion Gap 6 (6-14) Blood Urea Nitrogen 20mg/dL (7-20) Creatinine 0.9mg/dL (0.6-1.0) Estimated GFR (Cockcroft-Gault) 61.5 Glucose Level 80mg/dL (70-99) Calcium Level 8.9mg/dL (8.5-10.1) Microbiology 11/24/16 Blood Culture - Preliminary, Resulted NO GROWTH AFTER 1 DAY Medications Current Medications Albuterol/ Ipratropium (Duoneb) 3 ml 1X ONCE NEB Last administered on 15:52; Start 11/24/16 at 16:00; Stop 11/24/16 at 16:01; Status DC Methylprednisolone Sodium Succinate (Solu-Medrol 125mg Vial) 80 mg 1X ONCE IV Last administered on 11/24/16 16:03; Start 11/24/16 at 16:00; Stop 11/24/16 at 16:01; Status DC Albuterol/ Ipratropium (Duoneb) 3 ml RTQID NEB Last administered on 11/25/16 11:37; Start 11/24/16 at 20:00; Stop 11/25/16 at 14:27; Status DC Acetaminophen (Tylenol) 650 mg PRN Q6HRS PRN PO MILD PAIN / TEMP; Start at 18:30 Ondansetron HCl (Zofran) 4 mg PRN Q6HRS PRN IV NAUSEA/VOMITING; Start 11/24/16 at 18:30 Albuterol/ Ipratropium (Duoneb) 3 ml RTQID NEB ; Start 11/24/16 at 20:00; Stop 11/25/16 at 21:43; Status DC Albuterol Sulfate (Ventolin Neb Soln) 2.5 mg PRN Q4HRS PRN NEB SHORTNESS OF BREATH; Start 11/24/16 at 18:30; Stop 11/25/16 at 14:26; Status DC Prednisone (Prednisone) 40 mg DAILY PO Last administered on 11/26/16 08:26; Start 11/25/16 at 09:00 Budesonide (Pulmicort) 0.5 mg RTBID NEB Last administered on 11/25/16 07:56; Start 11/24/16 at 20:00; Stop 11/25/16 at 14:27; Status DC Doxycycline Hyclate (Vibra-Tab) 100 mg BID PO Last administered on 11/26/16 08 :26; Start 11/24/16 at 21:00 Guaifenesin (Robitussin) 200 mg PRN Q4HRS PRN PO COUGH Last administered on 00:37; Start 11/24/16 at 18:30 Enoxaparin Sodium (Lovenox 40mg Syringe) 40 mg Q24H SQ Last administered on 20:02; Start 11/24/16 at 21:00 Famotidine (Pepcid) 20 mg QHS PO Last administered on 11/25/16 20:00; Start at 21:00 Diphenhydramine HCl (Benadryl) 25 mg PRN Q6HRS PRN PO ITCHING Last administered on 11/26/16 00:41; Start 11/24/16 at 23:15 Lisinopril (Prinivil) 20 mg DAILY PO Last administered on 11/26/16 08:27; Start 11/25/16 at 14:30 Simvastatin (Zocor) 20 mg QHS PO Last administered on 11/25/16 20:00; Start at 21:00 Non-Formulary Medication 1 puff PRN Q6HRS PRN INH SHORTNESS OF BREATH; Start at 14:00; Status UNV Non-Formulary Medication 1 puff BID IH ; Start 11/25/16 at 21:00; Status UNV Mirtazapine (Remeron) 30 mg QHS PO Last administered on 11/25/16 20:00; Start 11/25/16 at 21:00 Albuterol Sulfate (Ventolin Neb Soln) 2.5 mg PRN Q6HRS PRN NEB SHORTNESS OF BREATH; Start 11/25/16 at 14:30; Stop 11/25/16 at 14:30; Status DC Albuterol Sulfate (Ventolin Neb Soln) 2.5 mg RTQID NEB Last administered on 11:09; Start 11/25/16 at 16:00 Budesonide (Pulmicort) 0.5 mg RTBID NEB ; Start 11/25/16 at 20:00; Stop at 20:00; Status DC Albuterol Sulfate (Ventolin Neb Soln) 2.5 mg PRN Q4HRS PRN NEB SHORTNESS OF BREATH Last administered on 11/26/16 02:51; Start 11/26/16 at 02:45 Active Scripts Active Reported Proair Hfa Inhaler (Albuterol Sulfate) 8.5 Gm Hfa.aer.ad 1 Puff INH PRN Q6HRS PRN Advair 500-50 Diskus (Fluticasone/Salmeterol) 1 Each Disk.w.dev 1 Puff IH BID Mirtazapine 30 Mg Tablet 1 Tab PO QHS Simvastatin 20 Mg Tablet 1 Tab PO QHS Lisinopril 20 Mg Tablet 1 Tab PO DAILY Vitals/I & O Vital Sign - Last 24 Hours 11/25/16 11/25/16 11/25/16 11/25/16 11:39 14:33 15:00 16:02 Temp 96.3 96.3 Pulse 74 78 Resp 20 B/P 135/57 128/55 Pulse Ox 92 92 92 O2 Delivery Nasal Cannula Nasal Cannula Nasal Cannula O2 Flow Rate 4.0 4.0 4.0 11/25/16 11/25/16 11/25/16 11/26/16 19:50 20:15 23:36 02:51 Temp 97.7 97.6 97.7 97.6 Pulse 74 80 Resp 16 20 B/P 115/55 121/62 Pulse Ox 93 94 93 O2 Delivery Nasal Cannula Nasal Cannula Nasal Cannula Nasal Cannula O2 Flow Rate 4.0 4.0 4.0 11/26/16 11/26/16 11/26/16 11/26/16 03:38 07:20 07:22 08:00 Temp 98.0 97.8 98.0 97.8 Pulse 74 88 Resp 16 16 B/P 120/65 121/51 Pulse Ox 94 92 94 O2 Delivery Nasal Cannula Nasal Cannula Nasal Cannula Nasal Cannula O2 Flow Rate 4.0 4.0 4.0 4.0 11/26/16 11/26/16 11/26/16 08:27 11:09 11:11 Temp 97.5 97.5 Pulse 88 85 Resp 16 B/P 121/51 125/50 Pulse Ox 93 O2 Delivery Nasal Cannula Nasal Cannula O2 Flow Rate 4.0 4.0 Intake and Output 11/25/16 11/25/16 11/26/16 15:00 23:00 07:00 Intake Total 1200 ml 520 ml Output Total 800 ml Balance 1200 ml -280 ml SEEMA BLANCHARD MD Nov 26, 2016 11:18
[2016-11-26 15:11] VITALS: BP 131/54
--- NOTE | 2016-11-26 15:44 | PDOC ---
PULMONARY PROGRESS NOTES Subjective soa and coughing Vitals Vital Signs Date Time Temp Pulse Resp B/P Pulse Ox O2 Delivery O2 Flow Rate FiO2 11/26/16 15:11 98.1 83 16 131/54 92 Nasal Cannula 4.0 98.1 ROS: No Nausea, No Chest Pain, No Abdominal Pain General: Alert Lungs: Clear Cardiovascular: S1, S2 Abdomen: Soft Neuro Exam: Alert Extremities: No Edema Skin: Warm Labs Laboratory Tests Test 11/24/16 15:44 11/24/16 15:47 11/26/16 03:20 White Blood Count 8.3x10^3/uL (4.0-11.0) 7.8x10^3/uL (4.0-11.0) Red Blood Count 5.11x10^6/uL (3.50-5.40) 4.86x10^6/uL (3.50-5.40) Hemoglobin 14.7g/dL (12.0-15.5) 14.0g/dL (12.0-15.5) Hematocrit 43.7% (36.0-47.0) 41.5% (36.0-47.0) Mean Corpuscular Volume 86fL (79-100) 85fL (79-100) Mean Corpuscular Hemoglobin 29pg (25-35) 29pg (25-35) Mean Corpuscular Hemoglobin Concent 34g/dL (31-37) 34g/dL (31-37) Red Cell Distribution Width 14.7% (11.5-14.5) 14.7% (11.5-14.5) Platelet Count 214x10^3/uL (140-400) 213x10^3/uL (140-400) Neutrophils (%) (Auto) 63% (31-73) 71% (31-73) Lymphocytes (%) (Auto) 15% (24-48) 16% (24-48) Monocytes (%) (Auto) 16% (0-9) 12% (0-9) Eosinophils (%) (Auto) 7% (0-3) 1% (0-3) Basophils (%) (Auto) 1% (0-3) 1% (0-3) Neutrophils # (Auto) 5.2x10^3uL (1.8-7.7) 5.5x10^3uL (1.8-7.7) Lymphocytes # (Auto) 1.2x10^3/uL (1.0-4.8) 1.2x10^3/uL (1.0-4.8) Monocytes # (Auto) 1.3x10^3/uL (0.0-1.1) 0.9x10^3/uL (0.0-1.1) Eosinophils # (Auto) 0.6x10^3/uL (0.0-0.7) 0.0x10^3/uL (0.0-0.7) Basophils # (Auto) 0.0x10^3/uL (0.0-0.2) 0.0x10^3/uL (0.0-0.2) Sodium Level 139mmol/L (136-145) 138mmol/L (136-145) Potassium Level 4.4mmol/L (3.5-5.1) 4.0mmol/L (3.5-5.1) Chloride Level 100mmol/L (98-107) 101mmol/L (98-107) Carbon Dioxide Level 32mmol/L (21-32) 31mmol/L (21-32) Anion Gap 7 (6-14) 6 (6-14) Blood Urea Nitrogen 15mg/dL (7-20) 20mg/dL (7-20) Creatinine 1.0mg/dL (0.6-1.0) 0.9mg/dL (0.6-1.0) Estimated GFR (Cockcroft-Gault) 54.5 61.5 BUN/Creatinine Ratio 15 (6-20) Glucose Level 92mg/dL (70-99) 80mg/dL (70-99) Calcium Level 9.7mg/dL (8.5-10.1) 8.9mg/dL (8.5-10.1) Total Bilirubin 0.3mg/dL (0.2-1.0) Aspartate Amino Transf (AST/SGOT) 19U/L (15-37) Alanine Aminotransferase (ALT/SGPT) 21U/L (14-59) Alkaline Phosphatase 96U/L (46-116) Creatine Kinase 108U/L (26-192) Creatine Kinase MB (Mass) 1.8ng/mL (0.0-3.6) Creatine Kinase MB Relative Index 1.7% (0-4) Troponin I Quantitative < 0.017ng/mL (0.000-0.055) SN-Ncl-A-Type Natriuretic Peptide 242pg/mL (0-124) Total Protein 7.9g/dL (6.4-8.2) Albumin 3.3g/dL (3.4-5.0) Albumin/Globulin Ratio 0.7 (1.0-1.7) Influenza Type A Antigen Negative (NEGATIVE) Influenza Type B Antigen Negative (NEGATIVE) Laboratory Tests Test 11/26/16 03:20 White Blood Count 7.8x10^3/uL (4.0-11.0) Red Blood Count 4.86x10^6/uL (3.50-5.40) Hemoglobin 14.0g/dL (12.0-15.5) Hematocrit 41.5% (36.0-47.0) Mean Corpuscular Volume 85fL (79-100) Mean Corpuscular Hemoglobin 29pg (25-35) Mean Corpuscular Hemoglobin Concent 34g/dL (31-37) Red Cell Distribution Width 14.7% (11.5-14.5) Platelet Count 213x10^3/uL (140-400) Neutrophils (%) (Auto) 71% (31-73) Lymphocytes (%) (Auto) 16% (24-48) Monocytes (%) (Auto) 12% (0-9) Eosinophils (%) (Auto) 1% (0-3) Basophils (%) (Auto) 1% (0-3) Neutrophils # (Auto) 5.5x10^3uL (1.8-7.7) Lymphocytes # (Auto) 1.2x10^3/uL (1.0-4.8) Monocytes # (Auto) 0.9x10^3/uL (0.0-1.1) Eosinophils # (Auto) 0.0x10^3/uL (0.0-0.7) Basophils # (Auto) 0.0x10^3/uL (0.0-0.2) Sodium Level 138mmol/L (136-145) Potassium Level 4.0mmol/L (3.5-5.1) Chloride Level 101mmol/L (98-107) Carbon Dioxide Level 31mmol/L (21-32) Anion Gap 6 (6-14) Blood Urea Nitrogen 20mg/dL (7-20) Creatinine 0.9mg/dL (0.6-1.0) Estimated GFR (Cockcroft-Gault) 61.5 Glucose Level 80mg/dL (70-99) Calcium Level 8.9mg/dL (8.5-10.1) Medications Active Scripts Medications Dose Route/Sig Days Date Category Proair Hfa Inhaler (Albuterol Sulfate) 8.5 Gm Hfa.aer.ad 1 Puff INH PRN Q6HRS PRN 11/25/16 Reported Advair 500-50 Diskus (Fluticasone/Salmeterol) 1 Each Disk.w.dev 1 Puff IH BID 11/25/16 Reported Mirtazapine 30 Mg Tablet 1 Tab PO QHS 11/25/16 Reported Simvastatin 20 Mg Tablet 1 Tab PO QHS 11/25/16 Reported Lisinopril 20 Mg Tablet 1 Tab PO DAILY 11/25/16 Reported Impression . IMPRESSION: 1. Dyspnea with acute hypoxic respiratory failure secondary to acute exacerbation of chronic obstructive pulmonary disease in the patient, who has been smoking since age 10 and continues to smoke cigarettes. 2. Possible acute viral bronchitis. Chest x-ray is clear. 3. Underlying obesity. 4. Severe post infectious cough Plan . Add teshollie peckx upon d/c: 1. Smoking cessation counseling provided. 2. Continue DuoNeb. 3. Continue Pulmicort. 4. Continue with oral prednisone taper. 5. Taper oxygen slowly. Keep sats 92% and above. 6. We will need a 6-minute walk test at the time of discharge. 7. PFTs as an outpatient. SEUN BALES MD Nov 26, 2016 15:44
[2016-11-26] MEDS: methylPREDNISolone SOD SUCC PF 40 MG/ML VIAL. IV SCH ×2 (17:34→20:08)
[2016-11-26] MEDS: BENZONATATE 100 MG CAPSULE. PO SCH (18:00)
[2016-11-26 19:39] VITALS: BP 149/62
[2016-11-26] MEDS: SIMVASTATIN 20 MG TABLET PO SCH (20:07)
[2016-11-26] MEDS: MIRTAZAPINE 15 MG TABLET PO SCH (20:08)
[2016-11-26] MEDS: ENOXAPARIN 40 MG/0.4 ML DISP.SYRIN. SQ SCH (20:08)
[2016-11-26] MEDS: FAMOTIDINE 20 MG TABLET. PO SCH (20:08)
[2016-11-27 03:03] VITALS: BP_SYST 55
[2016-11-27] MEDS: methylPREDNISolone SOD SUCC PF 40 MG/ML VIAL. IV SCH ×3 (06:11→20:51)
[2016-11-27] MEDS: GUAIFENESIN 200 MG/10 ML LIQUID. PO PRN ×3 (06:11→22:59)
[2016-11-27 07:00] VITALS: BP 129/64
[2016-11-27] MEDS: ALBUTEROL SULFATE 2.5 MG/3 ML NEBU. NEB SCH ×4 (07:11→18:32)
[2016-11-27] MEDS: BENZONATATE 100 MG CAPSULE. PO SCH ×3 (09:36→20:50)
[2016-11-27] MEDS: DOXYCYCLINE HYCLATE 100 MG TABLET PO SCH ×2 (09:36→20:50)
[2016-11-27] MEDS: LISINOPRIL 20 MG TABLET PO SCH (09:37)
--- NOTE | 2016-11-27 09:52 | PDOC ---
PULMONARY PROGRESS NOTES Subjective soa and coughing Vitals Vital Signs Date Time Temp Pulse Resp B/P Pulse Ox O2 Delivery O2 Flow Rate FiO2 11/27/16 09:37 68 129/64 11/27/16 07:12 94 Nasal Cannula 4.0 11/27/16 07:00 97.8 18 97.8 ROS: No Nausea, No Chest Pain, No Abdominal Pain General: Alert Lungs: Clear Cardiovascular: S1, S2 Abdomen: Soft Neuro Exam: Alert Extremities: No Edema Skin: Warm Labs Laboratory Tests Test 11/26/16 03:20 White Blood Count 7.8x10^3/uL (4.0-11.0) Red Blood Count 4.86x10^6/uL (3.50-5.40) Hemoglobin 14.0g/dL (12.0-15.5) Hematocrit 41.5% (36.0-47.0) Mean Corpuscular Volume 85fL (79-100) Mean Corpuscular Hemoglobin 29pg (25-35) Mean Corpuscular Hemoglobin Concent 34g/dL (31-37) Red Cell Distribution Width 14.7% (11.5-14.5) Platelet Count 213x10^3/uL (140-400) Neutrophils (%) (Auto) 71% (31-73) Lymphocytes (%) (Auto) 16% (24-48) Monocytes (%) (Auto) 12% (0-9) Eosinophils (%) (Auto) 1% (0-3) Basophils (%) (Auto) 1% (0-3) Neutrophils # (Auto) 5.5x10^3uL (1.8-7.7) Lymphocytes # (Auto) 1.2x10^3/uL (1.0-4.8) Monocytes # (Auto) 0.9x10^3/uL (0.0-1.1) Eosinophils # (Auto) 0.0x10^3/uL (0.0-0.7) Basophils # (Auto) 0.0x10^3/uL (0.0-0.2) Sodium Level 138mmol/L (136-145) Potassium Level 4.0mmol/L (3.5-5.1) Chloride Level 101mmol/L (98-107) Carbon Dioxide Level 31mmol/L (21-32) Anion Gap 6 (6-14) Blood Urea Nitrogen 20mg/dL (7-20) Creatinine 0.9mg/dL (0.6-1.0) Estimated GFR (Cockcroft-Gault) 61.5 Glucose Level 80mg/dL (70-99) Calcium Level 8.9mg/dL (8.5-10.1) Medications Active Scripts Medications Dose Route/Sig Days Date Category Proair Hfa Inhaler (Albuterol Sulfate) 8.5 Gm Hfa.aer.ad 1 Puff INH PRN Q6HRS PRN 11/25/16 Reported Advair 500-50 Diskus (Fluticasone/Salmeterol) 1 Each Disk.w.dev 1 Puff IH BID 11/25/16 Reported Mirtazapine 30 Mg Tablet 1 Tab PO QHS 11/25/16 Reported Simvastatin 20 Mg Tablet 1 Tab PO QHS 11/25/16 Reported Lisinopril 20 Mg Tablet 1 Tab PO DAILY 11/25/16 Reported Impression . IMPRESSION: 1. Dyspnea with acute hypoxic respiratory failure secondary to acute exacerbation of chronic obstructive pulmonary disease in the patient, who has been smoking since age 10 and continues to smoke cigarettes. 2. Possible acute viral bronchitis. Chest x-ray is clear. 3. Underlying obesity. 4. Severe post infectious cough Plan . Add adam butts upon d/c: 1. Smoking cessation counseling provided. 2. Continue DuoNeb. 3. Continue Pulmicort. 4. Continue with oral prednisone taper. 5. Taper oxygen slowly. Keep sats 92% and above. 6. We will need a 6-minute walk test at the time of discharge. 7. PFTs as an outpatient. SEUN BALES MD Nov 27, 2016 09:52
[2016-11-27 10:46] VITALS: BP 133/74
--- NOTE | 2016-11-27 11:31 | PDOC ---
PROGRESS NOTES Chief Complaint Chief Complaint a/p 1. Acute hypoxic respiratory failure with 2 2. Copd exacerbation 3. tobaccoism 4. HLP 5. HTN 6. Depression PLAN IV SOLUMDEROL DUONEB Q 6HRS SUPPLEMENTAL OXYGEN PULMONARY FOLLOWING CLINICALLY IMPROVING. 6 WALK test. History of Present Illness History of Present Illness on NC 3 L, sob better + wheezing Vitals Vitals Vital Signs Date Time Temp Pulse Resp B/P Pulse Ox O2 Delivery O2 Flow Rate FiO2 11/27/16 11:27 94 Nasal Cannula 4.0 11/27/16 10:46 97.8 20 133/74 97.8 11/27/16 09:37 68 Physical Exam General: Alert, Oriented X3, Cooperative Heart: Regular rate, Normal S1, Normal S2 Lungs: Wheezing Abdomen: Normal bowel sounds, Soft Extremities: No clubbing, No cyanosis Assessment and Plan Assessmemt and Plan Problems Medical Problems: (1) COPD exacerbation Status: Acute Problems: Comment Review of Relevant I have reviewed the following items anand (where applicable) has been applied. Labs Laboratory Tests Test 11/26/16 03:20 White Blood Count 7.8x10^3/uL (4.0-11.0) Red Blood Count 4.86x10^6/uL (3.50-5.40) Hemoglobin 14.0g/dL (12.0-15.5) Hematocrit 41.5% (36.0-47.0) Mean Corpuscular Volume 85fL (79-100) Mean Corpuscular Hemoglobin 29pg (25-35) Mean Corpuscular Hemoglobin Concent 34g/dL (31-37) Red Cell Distribution Width 14.7% (11.5-14.5) Platelet Count 213x10^3/uL (140-400) Neutrophils (%) (Auto) 71% (31-73) Lymphocytes (%) (Auto) 16% (24-48) Monocytes (%) (Auto) 12% (0-9) Eosinophils (%) (Auto) 1% (0-3) Basophils (%) (Auto) 1% (0-3) Neutrophils # (Auto) 5.5x10^3uL (1.8-7.7) Lymphocytes # (Auto) 1.2x10^3/uL (1.0-4.8) Monocytes # (Auto) 0.9x10^3/uL (0.0-1.1) Eosinophils # (Auto) 0.0x10^3/uL (0.0-0.7) Basophils # (Auto) 0.0x10^3/uL (0.0-0.2) Sodium Level 138mmol/L (136-145) Potassium Level 4.0mmol/L (3.5-5.1) Chloride Level 101mmol/L (98-107) Carbon Dioxide Level 31mmol/L (21-32) Anion Gap 6 (6-14) Blood Urea Nitrogen 20mg/dL (7-20) Creatinine 0.9mg/dL (0.6-1.0) Estimated GFR (Cockcroft-Gault) 61.5 Glucose Level 80mg/dL (70-99) Calcium Level 8.9mg/dL (8.5-10.1) Microbiology 11/24/16 Blood Culture - Preliminary, Resulted NO GROWTH AFTER 2 DAYS Medications Current Medications Albuterol/ Ipratropium (Duoneb) 3 ml 1X ONCE NEB Last administered on 15:52; Start 11/24/16 at 16:00; Stop 11/24/16 at 16:01; Status DC Methylprednisolone Sodium Succinate (Solu-Medrol 125mg Vial) 80 mg 1X ONCE IV Last administered on 11/24/16 16:03; Start 11/24/16 at 16:00; Stop 11/24/16 at 16:01; Status DC Albuterol/ Ipratropium (Duoneb) 3 ml RTQID NEB Last administered on 11/25/16 11:37; Start 11/24/16 at 20:00; Stop 11/25/16 at 14:27; Status DC Acetaminophen (Tylenol) 650 mg PRN Q6HRS PRN PO MILD PAIN / TEMP Last administered on 11/26/16 20:14; Start 11/24/16 at 18:30 Ondansetron HCl (Zofran) 4 mg PRN Q6HRS PRN IV NAUSEA/VOMITING; Start 11/24/16 at 18:30 Albuterol/ Ipratropium (Duoneb) 3 ml RTQID NEB ; Start 11/24/16 at 20:00; Stop 11/25/16 at 21:43; Status DC Albuterol Sulfate (Ventolin Neb Soln) 2.5 mg PRN Q4HRS PRN NEB SHORTNESS OF BREATH; Start 11/24/16 at 18:30; Stop 11/25/16 at 14:26; Status DC Prednisone (Prednisone) 40 mg DAILY PO Last administered on 11/26/16 08:26; Start 11/25/16 at 09:00; Stop 11/26/16 at 14:53; Status DC Budesonide (Pulmicort) 0.5 mg RTBID NEB Last administered on 11/25/16 07:56; Start 11/24/16 at 20:00; Stop 11/25/16 at 14:27; Status DC Doxycycline Hyclate (Vibra-Tab) 100 mg BID PO Last administered on 11/27/16 09 :36; Start 11/24/16 at 21:00 Guaifenesin (Robitussin) 200 mg PRN Q4HRS PRN PO COUGH Last administered on 06:11; Start 11/24/16 at 18:30 Enoxaparin Sodium (Lovenox 40mg Syringe) 40 mg Q24H SQ Last administered on 20:08; Start 11/24/16 at 21:00 Famotidine (Pepcid) 20 mg QHS PO Last administered on 11/26/16 20:08; Start at 21:00 Diphenhydramine HCl (Benadryl) 25 mg PRN Q6HRS PRN PO ITCHING Last administered on 11/26/16 00:41; Start 11/24/16 at 23:15 Lisinopril (Prinivil) 20 mg DAILY PO Last administered on 11/27/16 09:37; Start 11/25/16 at 14:30 Simvastatin (Zocor) 20 mg QHS PO Last administered on 11/26/16 20:07; Start at 21:00 Non-Formulary Medication 1 puff PRN Q6HRS PRN INH SHORTNESS OF BREATH; Start at 14:00; Status UNV Non-Formulary Medication 1 puff BID IH ; Start 11/25/16 at 21:00; Status UNV Mirtazapine (Remeron) 30 mg QHS PO Last administered on 11/26/16 20:08; Start 11/25/16 at 21:00 Albuterol Sulfate (Ventolin Neb Soln) 2.5 mg PRN Q6HRS PRN NEB SHORTNESS OF BREATH; Start 11/25/16 at 14:30; Stop 11/25/16 at 14:30; Status DC Albuterol Sulfate (Ventolin Neb Soln) 2.5 mg RTQID NEB Last administered on 11:26; Start 11/25/16 at 16:00 Budesonide (Pulmicort) 0.5 mg RTBID NEB ; Start 11/25/16 at 20:00; Stop at 20:00; Status DC Albuterol Sulfate (Ventolin Neb Soln) 2.5 mg PRN Q4HRS PRN NEB SHORTNESS OF BREATH Last administered on 11/26/16 02:51; Start 11/26/16 at 02:45 Methylprednisolone Sodium Succinate (Solu-Medrol 40mg Vial) 40 mg Q8HRS IV Last administered on 11/27/16 06:11; Start 11/26/16 at 15:00 Benzonatate (Tessalon Perle) 100 mg [id number] PO Last administered on 11/27/16 09 :36; Start 11/26/16 at 18:00 Active Scripts Active Reported Proair Hfa Inhaler (Albuterol Sulfate) 8.5 Gm Hfa.aer.ad 1 Puff INH PRN Q6HRS PRN Advair 500-50 Diskus (Fluticasone/Salmeterol) 1 Each Disk.w.dev 1 Puff IH BID Mirtazapine 30 Mg Tablet 1 Tab PO QHS Simvastatin 20 Mg Tablet 1 Tab PO QHS Lisinopril 20 Mg Tablet 1 Tab PO DAILY Vitals/I & O Vital Sign - Last 24 Hours 11/26/16 11/26/16 11/26/16 11/26/16 15:11 17:10 19:39 20:00 Temp 98.1 96.4 98.1 96.4 Pulse 83 78 Resp 16 20 B/P 131/54 149/62 Pulse Ox 92 94 O2 Delivery Nasal Cannula Nasal Cannula Nasal Cannula Nasal Cannula O2 Flow Rate 4.0 4.0 4.0 4.0 11/26/16 11/26/16 11/27/16 11/27/16 20:51 23:56 03:03 07:00 Temp 96.8 97.8 96.8 97.8 Pulse 69 68 Resp 18 18 B/P 55/ 129/64 Pulse Ox 94 93 94 92 O2 Delivery Nasal Cannula Nasal Cannula Nasal Cannula Nasal Cannula O2 Flow Rate 4.0 4.0 4.0 4.0 11/27/16 11/27/16 11/27/16 11/27/16 07:12 09:37 10:46 11:27 Temp 97.8 97.8 Pulse 68 Resp 20 B/P 129/64 133/74 Pulse Ox 94 94 94 O2 Delivery Nasal Cannula Nasal Cannula Nasal Cannula O2 Flow Rate 4.0 4.0 4.0 Intake and Output 11/26/16 11/26/16 11/27/16 15:00 23:00 07:00 Intake Total 450 ml 360 ml Balance 450 ml 360 ml SEEMA BLANCHARD MD Nov 27, 2016 11:31
[2016-11-27 14:58] VITALS: BP 136/55
[2016-11-27 19:10] VITALS: BP 143/59
[2016-11-27] MEDS: MIRTAZAPINE 15 MG TABLET PO SCH (20:50)
[2016-11-27] MEDS: FAMOTIDINE 20 MG TABLET. PO SCH (20:50)
[2016-11-27] MEDS: SIMVASTATIN 20 MG TABLET PO SCH (20:50)
[2016-11-27] MEDS: ENOXAPARIN 40 MG/0.4 ML DISP.SYRIN. SQ SCH (20:55)
[2016-11-27 23:15] VITALS: BP 145/61
[2016-11-28 03:10] VITALS: BP_SYST 125; BP_SYST 148; BP_DIAS 55; BP_DIAS 57
[2016-11-28] MEDS: methylPREDNISolone SOD SUCC PF 40 MG/ML VIAL. IV SCH ×3 (05:43→20:58)
[2016-11-28 07:00] VITALS: BP 134/58
[2016-11-28] MEDS: ALBUTEROL SULFATE 2.5 MG/3 ML NEBU. NEB SCH ×4 (08:07→19:50)
[2016-11-28] MEDS: DOXYCYCLINE HYCLATE 100 MG TABLET PO SCH ×2 (08:36→20:53)
[2016-11-28] MEDS: LISINOPRIL 20 MG TABLET PO SCH (08:37)
[2016-11-28] MEDS: BENZONATATE 100 MG CAPSULE. PO SCH ×3 (08:37→20:52)
[2016-11-28 11:00] VITALS: BP 126/58
--- NOTE | 2016-11-28 11:06 | PDOC ---
PULMONARY PROGRESS NOTES Subjective Pt feels better Vitals Vital Signs Date Time Temp Pulse Resp B/P Pulse Ox O2 Delivery O2 Flow Rate FiO2 11/28/16 11:00 97.4 73 20 126/58 94 Nasal Cannula 4.0 97.4 ROS: No Nausea, No Chest Pain, No Abdominal Pain General: Alert Lungs: Wheezing Cardiovascular: S1, S2 Abdomen: Soft Neuro Exam: Alert Extremities: No Edema Skin: Warm Medications Active Scripts Medications Dose Route/Sig Days Date Category Proair Hfa Inhaler (Albuterol Sulfate) 8.5 Gm Hfa.aer.ad 1 Puff INH PRN Q6HRS PRN 11/25/16 Reported Advair 500-50 Diskus (Fluticasone/Salmeterol) 1 Each Disk.w.dev 1 Puff IH BID 11/25/16 Reported Mirtazapine 30 Mg Tablet 1 Tab PO QHS 11/25/16 Reported Simvastatin 20 Mg Tablet 1 Tab PO QHS 11/25/16 Reported Lisinopril 20 Mg Tablet 1 Tab PO DAILY 11/25/16 Reported Impression . 1. Dyspnea with acute hypoxic respiratory failure secondary to acute exacerbation of chronic obstructive pulmonary disease in the patient, who has been smoking since age 10 and continues to smoke cigarettes. 2. Possible acute viral bronchitis. Chest x-ray is clear. 3. Underlying obesity. 4. Severe post infectious cough 5. Ct chest pulmonary nodule Plan . 6 min walk opk to d/c in am follow up with me in 6 months Add adam garretttix upon d/c: SEUN BALES MD Nov 28, 2016 11:06
--- NOTE | 2016-11-28 11:37 | PDOC ---
PROGRESS NOTES Chief Complaint Chief Complaint a/p 1. Acute hypoxic respiratory failure , 8L with activity. 2. Copd exacerbation 3. tobaccoism 4. HLP 5. HTN 6. Depression PLAN CT chest with contrast for severe Hypoxia. Doxycycline SOB not improved. IV SOLUMDEROL DUONEB Q 6HRS SUPPLEMENTAL OXYGEN PULMONARY FOLLOWING 6 WALK test hypoxia needing 8 L with activity. History of Present Illness History of Present Illness on NC 3 L, sob better + wheezing Vitals Vitals Vital Signs Date Time Temp Pulse Resp B/P Pulse Ox O2 Delivery O2 Flow Rate FiO2 11/28/16 11:00 97.4 73 20 126/58 94 Nasal Cannula 4.0 97.4 Physical Exam General: Alert, Oriented X3, Cooperative Heart: Regular rate, Normal S1, Normal S2 Lungs: Wheezing Abdomen: Normal bowel sounds, Soft Extremities: No clubbing, No cyanosis Assessment and Plan Assessmemt and Plan Problems Medical Problems: (1) COPD exacerbation Status: Acute Problems: Comment Review of Relevant I have reviewed the following items anand (where applicable) has been applied. Labs Microbiology 11/24/16 Blood Culture - Preliminary, Resulted NO GROWTH AFTER 3 DAYS Medications Current Medications Albuterol/ Ipratropium (Duoneb) 3 ml 1X ONCE NEB Last administered on 15:52; Start 11/24/16 at 16:00; Stop 11/24/16 at 16:01; Status DC Methylprednisolone Sodium Succinate (Solu-Medrol 125mg Vial) 80 mg 1X ONCE IV Last administered on 11/24/16 16:03; Start 11/24/16 at 16:00; Stop 11/24/16 at 16:01; Status DC Albuterol/ Ipratropium (Duoneb) 3 ml RTQID NEB Last administered on 11/25/16 11:37; Start 11/24/16 at 20:00; Stop 11/25/16 at 14:27; Status DC Acetaminophen (Tylenol) 650 mg PRN Q6HRS PRN PO MILD PAIN / TEMP Last administered on 11/26/16 20:14; Start 11/24/16 at 18:30 Ondansetron HCl (Zofran) 4 mg PRN Q6HRS PRN IV NAUSEA/VOMITING; Start 11/24/16 at 18:30 Albuterol/ Ipratropium (Duoneb) 3 ml RTQID NEB ; Start 11/24/16 at 20:00; Stop 11/25/16 at 21:43; Status DC Albuterol Sulfate (Ventolin Neb Soln) 2.5 mg PRN Q4HRS PRN NEB SHORTNESS OF BREATH; Start 11/24/16 at 18:30; Stop 11/25/16 at 14:26; Status DC Prednisone (Prednisone) 40 mg DAILY PO Last administered on 11/26/16 08:26; Start 11/25/16 at 09:00; Stop 11/26/16 at 14:53; Status DC Budesonide (Pulmicort) 0.5 mg RTBID NEB Last administered on 11/25/16 07:56; Start 11/24/16 at 20:00; Stop 11/25/16 at 14:27; Status DC Doxycycline Hyclate (Vibra-Tab) 100 mg BID PO Last administered on 11/28/16 08 :36; Start 11/24/16 at 21:00 Guaifenesin (Robitussin) 200 mg PRN Q4HRS PRN PO COUGH Last administered on 22:59; Start 11/24/16 at 18:30 Enoxaparin Sodium (Lovenox 40mg Syringe) 40 mg Q24H SQ Last administered on 20:55; Start 11/24/16 at 21:00 Famotidine (Pepcid) 20 mg QHS PO Last administered on 11/27/16 20:50; Start at 21:00 Diphenhydramine HCl (Benadryl) 25 mg PRN Q6HRS PRN PO ITCHING Last administered on 11/26/16 00:41; Start 11/24/16 at 23:15 Lisinopril (Prinivil) 20 mg DAILY PO Last administered on 11/28/16 08:37; Start 11/25/16 at 14:30 Simvastatin (Zocor) 20 mg QHS PO Last administered on 11/27/16 20:50; Start at 21:00 Non-Formulary Medication 1 puff PRN Q6HRS PRN INH SHORTNESS OF BREATH; Start at 14:00; Status UNV Non-Formulary Medication 1 puff BID IH ; Start 11/25/16 at 21:00; Status UNV Mirtazapine (Remeron) 30 mg QHS PO Last administered on 11/27/16 20:50; Start 11/25/16 at 21:00 Albuterol Sulfate (Ventolin Neb Soln) 2.5 mg PRN Q6HRS PRN NEB SHORTNESS OF BREATH; Start 11/25/16 at 14:30; Stop 11/25/16 at 14:30; Status DC Albuterol Sulfate (Ventolin Neb Soln) 2.5 mg RTQID NEB Last administered on 08:07; Start 11/25/16 at 16:00 Budesonide (Pulmicort) 0.5 mg RTBID NEB ; Start 11/25/16 at 20:00; Stop at 20:00; Status DC Albuterol Sulfate (Ventolin Neb Soln) 2.5 mg PRN Q4HRS PRN NEB SHORTNESS OF BREATH Last administered on 11/26/16 02:51; Start 11/26/16 at 02:45 Methylprednisolone Sodium Succinate (Solu-Medrol 40mg Vial) 40 mg Q8HRS IV Last administered on 11/28/16 05:43; Start 11/26/16 at 15:00 Benzonatate (Tessalon Perle) 100 mg [id number] PO Last administered on 11/28/16 08 :37; Start 11/26/16 at 18:00 Active Scripts Active Reported Proair Hfa Inhaler (Albuterol Sulfate) 8.5 Gm Hfa.aer.ad 1 Puff INH PRN Q6HRS PRN Advair 500-50 Diskus (Fluticasone/Salmeterol) 1 Each Disk.w.dev 1 Puff IH BID Mirtazapine 30 Mg Tablet 1 Tab PO QHS Simvastatin 20 Mg Tablet 1 Tab PO QHS Lisinopril 20 Mg Tablet 1 Tab PO DAILY Vitals/I & O Vital Sign - Last 24 Hours 11/27/16 11/27/16 11/27/16 11/27/16 14:58 15:43 18:32 19:10 Temp 97.8 96.8 97.8 96.8 Pulse 76 75 Resp 18 20 B/P 136/55 143/59 Pulse Ox 92 88 88 93 O2 Delivery Nasal Cannula Room Air Room Air Nasal Cannula O2 Flow Rate 4.0 4.0 11/27/16 11/27/16 11/28/16 11/28/16 20:00 23:15 03:10 07:00 Temp 97.6 97.9 97.5 97.6 97.9 97.5 Pulse 72 70 69 Resp 20 20 18 B/P 145/61 148/57 134/58 Pulse Ox 95 92 92 O2 Delivery Nasal Cannula Nasal Cannula Nasal Cannula Nasal Cannula O2 Flow Rate 4.0 4.0 4.0 4.0 11/28/16 11/28/16 11/28/16 11/28/16 08:00 08:09 08:37 11:00 Temp 97.4 97.4 Pulse 69 73 Resp 20 B/P 134/58 126/58 Pulse Ox 95 94 O2 Delivery Nasal Cannula Nasal Cannula Nasal Cannula O2 Flow Rate 4.0 4.0 4.0 Intake and Output 11/27/16 11/27/16 11/28/16 15:00 23:00 07:00 Intake Total 500 ml 300 ml Output Total 700 ml 450 ml Balance -700 ml 50 ml 300 ml SEEMA BLANCHARD MD Nov 28, 2016 11:37
[2016-11-28 12:29] LABS: HCO3 ABG 32 mmol/L (21-28); PCO2 ABG 49 mmHg (35-46); PH ABG 7.43 (7.35-7.45); PO2 ABG 68 mmHg (65-108); SAT O2 ABG 95 % (92-99)
[2016-11-28 12:38] LABS: FIO2 ABG 36
[2016-11-28] MEDS ORDERED: IOHEXOL 300 MG/ML 75 ML VIAL IV ONE (12:45)
[2016-11-28] MEDS ORDERED: CONTRAST GIVEN MC PRN (13:00)
[2016-11-28 15:00] VITALS: BP 146/54
--- NOTE | 2016-11-28 15:44 | RAD ---
Indication: Severe hypoxia. Technique: Axial images and coronal and sagittal reformatted images are provided. 75 mL of intravenous Omnipaque 300 was administered without complication. Comparison chest radiograph is from 4 days ago. One or more of the following individualized dose reduction techniques were utilized for this examination: 1. Automated exposure control 2. Adjustment of the mA and/or kV according to patient size 3. Use of iterative reconstruction technique Findings: There is moderate emphysema. There is granulomatous disease. There is minimal presumed right apical scarring. Two noncalcified pulmonary nodules in the right lower lobe on coronal image 34 each measure 4 mm. There is middle lobe atelectasis or scarring. Nodularity with tree-in-bud distribution is noted in the left lower lobe. Lingular atelectasis or scarring is noted. There is no pleural effusion. Central airways are patent. There is atheromatous disease in the thoracic aorta. Heart is not enlarged. Coronary artery calcifications are noted. There is no hilar or mediastinal adenopathy. There are degenerative changes in the spine. Probable cyst in the left kidney is partially included. Nodules detected incidentally at non-screening CT (Fleischner Society Recommendations) Nodule size less than or equal to 4 mm Low Risk patients- no follow-up needed High Risk patients- follow-up at 12 months and if no change, no further imaging needed. Nodule size > 4-6 mm Low risk patients- follow- up at 12 months and if no change, no further imaging needed High risk patients- initial follow-up CT at 6-12 months and then at 18-24 months if no change. Nodule Size > 6-8 mm Low risk patients- initial follow-up CT at 6-12 months and then at 18-24 months if no change. High risk patients- initial follow- up CT at 3-6 months and then at 9-12 months if no change, Nodule Size >8 mm Both low and high risk patients: Follow-up CT at around 3, 9 and [address], PET, and/or biopsy Note: newly detected indeterminate nodule in person 35 years of age or older. Low risk patients- minimal or absent history of smoking and/or other known risk factors. High risk patients- history of smoking or of other known risk factors. Impression: 1. Emphysema. 2. Pulmonary nodules in the right lower lobe, follow-up per Fleischner Society recommendations. 3. Nodularity with tree-in-bud distribution in the left lower lobe, nodules all less than 4 mm in size. Distribution is typically infectious in etiology. Atypical infection should be considered. Aspiration pneumonitis can also be considered.
[2016-11-28 19:41] VITALS: BP 142/60
[2016-11-28] MEDS ORDERED: BISACODYL 10 MG SUPP.RECT PR PRN (20:45)
[2016-11-28] MEDS ORDERED: MAGNESIUM HYDROXIDE 2,400 MG/30 ML ORAL.SUSP. PO PRN (20:45)
[2016-11-28] MEDS: SIMVASTATIN 20 MG TABLET PO SCH (20:52)
[2016-11-28] MEDS: MIRTAZAPINE 15 MG TABLET PO SCH (20:52)
[2016-11-28] MEDS: SENNOSIDES/DOCUSATE 8.6/50MG TABLET. PO SCH (20:52)
[2016-11-28] MEDS: FAMOTIDINE 20 MG TABLET. PO SCH (20:53)
[2016-11-28] MEDS: ENOXAPARIN 40 MG/0.4 ML DISP.SYRIN. SQ SCH (20:55)
[2016-11-28 22:58] VITALS: BP 139/60
[2016-11-29 02:51] VITALS: BP 148/63
[2016-11-29] MEDS: methylPREDNISolone SOD SUCC PF 40 MG/ML VIAL. IV SCH ×2 (06:10→14:00)
[2016-11-29 07:00] VITALS: BP 155/52
[2016-11-29] MEDS: ALBUTEROL SULFATE 2.5 MG/3 ML NEBU. NEB SCH ×3 (07:48→16:17)
[2016-11-29] MEDS: LISINOPRIL 20 MG TABLET PO SCH (09:06)
[2016-11-29] MEDS: BENZONATATE 100 MG CAPSULE. PO SCH ×2 (09:06→14:55)
[2016-11-29] MEDS: SENNOSIDES/DOCUSATE 8.6/50MG TABLET. PO SCH (09:06)
[2016-11-29] MEDS: DOXYCYCLINE HYCLATE 100 MG TABLET PO SCH (09:06)
--- NOTE | 2016-11-29 10:42 | PDOC ---
PROGRESS NOTES Chief Complaint Chief Complaint a/p 1. Acute hypoxic respiratory failure , 8L with activity. 2. Copd exacerbation 3. tobaccoism 4. HLP 5. HTN 6. Depression PLAN clinically improved, 2L at rest, 4 L with activity oxygen steroid dora follow up with Dr Gaxiola for repeat CT. History of Present Illness History of Present Illness on NC 2 L, Vitals Vitals Vital Signs Date Time Temp Pulse Resp B/P Pulse Ox O2 Delivery O2 Flow Rate FiO2 11/29/16 09:06 72 155/52 11/29/16 08:00 Nasal Cannula 4.0 11/29/16 07:50 92 11/29/16 07:00 98.2 18 98.2 Physical Exam General: Alert, Oriented X3, Cooperative Heart: Regular rate, Normal S1, Normal S2 Lungs: Wheezing Abdomen: Normal bowel sounds, Soft Extremities: No clubbing, No cyanosis Labs LABS Laboratory Tests Test 11/28/16 11:35 O2 Saturation 95% (92-99) Arterial Blood pH 7.43 (7.35-7.45) Arterial Blood pCO2 at Patient Temp 49mmHg (35-46) Arterial Blood pO2 at Patient Temp 68mmHg (65-108) Arterial Blood HCO3 32mmol/L (21-28) Arterial Blood Base Excess 6mmol/L (-3-3) FiO2 36 Assessment and Plan Assessmemt and Plan Problems Medical Problems: (1) COPD exacerbation Status: Acute Problems: Comment Review of Relevant I have reviewed the following items anand (where applicable) has been applied. Labs Laboratory Tests Test 11/28/16 11:35 O2 Saturation 95% (92-99) Arterial Blood pH 7.43 (7.35-7.45) Arterial Blood pCO2 at Patient Temp 49mmHg (35-46) Arterial Blood pO2 at Patient Temp 68mmHg (65-108) Arterial Blood HCO3 32mmol/L (21-28) Arterial Blood Base Excess 6mmol/L (-3-3) FiO2 36 Laboratory Tests Test 11/28/16 11:35 O2 Saturation 95% (92-99) Arterial Blood pH 7.43 (7.35-7.45) Arterial Blood pCO2 at Patient Temp 49mmHg (35-46) Arterial Blood pO2 at Patient Temp 68mmHg (65-108) Arterial Blood HCO3 32mmol/L (21-28) Arterial Blood Base Excess 6mmol/L (-3-3) FiO2 36 Microbiology 11/24/16 Blood Culture - Preliminary, Resulted NO GROWTH AFTER 4 DAYS Medications Current Medications Albuterol/ Ipratropium (Duoneb) 3 ml 1X ONCE NEB Last administered on 15:52; Start 11/24/16 at 16:00; Stop 11/24/16 at 16:01; Status DC Methylprednisolone Sodium Succinate (Solu-Medrol 125mg Vial) 80 mg 1X ONCE IV Last administered on 11/24/16 16:03; Start 11/24/16 at 16:00; Stop 11/24/16 at 16:01; Status DC Albuterol/ Ipratropium (Duoneb) 3 ml RTQID NEB Last administered on 11/25/16 11:37; Start 11/24/16 at 20:00; Stop 11/25/16 at 14:27; Status DC Acetaminophen (Tylenol) 650 mg PRN Q6HRS PRN PO MILD PAIN / TEMP Last administered on 11/26/16 20:14; Start 11/24/16 at 18:30 Ondansetron HCl (Zofran) 4 mg PRN Q6HRS PRN IV NAUSEA/VOMITING; Start 11/24/16 at 18:30 Albuterol/ Ipratropium (Duoneb) 3 ml RTQID NEB ; Start 11/24/16 at 20:00; Stop 11/25/16 at 21:43; Status DC Albuterol Sulfate (Ventolin Neb Soln) 2.5 mg PRN Q4HRS PRN NEB SHORTNESS OF BREATH; Start 11/24/16 at 18:30; Stop 11/25/16 at 14:26; Status DC Prednisone (Prednisone) 40 mg DAILY PO Last administered on 11/26/16 08:26; Start 11/25/16 at 09:00; Stop 11/26/16 at 14:53; Status DC Budesonide (Pulmicort) 0.5 mg RTBID NEB Last administered on 11/25/16 07:56; Start 11/24/16 at 20:00; Stop 11/25/16 at 14:27; Status DC Doxycycline Hyclate (Vibra-Tab) 100 mg BID PO Last administered on 11/29/16 09 :06; Start 11/24/16 at 21:00 Guaifenesin (Robitussin) 200 mg PRN Q4HRS PRN PO COUGH Last administered on 22:59; Start 11/24/16 at 18:30 Enoxaparin Sodium (Lovenox 40mg Syringe) 40 mg Q24H SQ Last administered on 20:55; Start 11/24/16 at 21:00 Famotidine (Pepcid) 20 mg QHS PO Last administered on 11/28/16 20:53; Start at 21:00 Diphenhydramine HCl (Benadryl) 25 mg PRN Q6HRS PRN PO ITCHING Last administered on 11/26/16 00:41; Start 11/24/16 at 23:15 Lisinopril (Prinivil) 20 mg DAILY PO Last administered on 11/29/16 09:06; Start 11/25/16 at 14:30 Simvastatin (Zocor) 20 mg QHS PO Last administered on 11/28/16 20:52; Start at 21:00 Non-Formulary Medication 1 puff PRN Q6HRS PRN INH SHORTNESS OF BREATH; Start at 14:00; Status UNV Non-Formulary Medication 1 puff BID IH ; Start 11/25/16 at 21:00; Status UNV Mirtazapine (Remeron) 30 mg QHS PO Last administered on 11/28/16 20:52; Start 11/25/16 at 21:00 Albuterol Sulfate (Ventolin Neb Soln) 2.5 mg PRN Q6HRS PRN NEB SHORTNESS OF BREATH; Start 11/25/16 at 14:30; Stop 11/25/16 at 14:30; Status DC Albuterol Sulfate (Ventolin Neb Soln) 2.5 mg RTQID NEB Last administered on 07:48; Start 11/25/16 at 16:00 Budesonide (Pulmicort) 0.5 mg RTBID NEB ; Start 11/25/16 at 20:00; Stop at 20:00; Status DC Albuterol Sulfate (Ventolin Neb Soln) 2.5 mg PRN Q4HRS PRN NEB SHORTNESS OF BREATH Last administered on 11/26/16 02:51; Start 11/26/16 at 02:45 Methylprednisolone Sodium Succinate (Solu-Medrol 40mg Vial) 40 mg Q8HRS IV Last administered on 11/29/16 06:10; Start 11/26/16 at 15:00 Benzonatate (Tessalon Perle) 100 mg [id number] PO Last administered on 11/29/16 09 :06; Start 11/26/16 at 18:00 Iohexol (Omnipaque 300 Mg/ml) 75 ml 1X ONCE IV Last administered on 11/28/16 14:02; Start 11/28/16 at 12:45; Stop 11/28/16 at 12:46; Status DC Info (Do NOT chart on this entry -- for MONITORING) 1 each PRN DAILY PRN MC SEE COMMENTS; Start 11/28/16 at 13:00; Stop 11/30/16 at 12:59 Senna/Docusate Sodium (Senna Plus) 1 tab BID PO Last administered on 11/29/16 09:06; Start 11/28/16 at 21:00 Magnesium Hydroxide (Milk Of Magnesia) 2,400 mg PRN Q12HR PRN PO CONSTIPATION Last administered on 11/28/16 20:52; Start 11/28/16 at 20:45 Bisacodyl (Dulcolax Supp) 10 mg PRN DAILY PRN MD CONSTIPATION; Start 11/28/16 at 20:45 Active Scripts Active Reported Proair Hfa Inhaler (Albuterol Sulfate) 8.5 Gm Hfa.aer.ad 1 Puff INH PRN Q6HRS PRN Advair 500-50 Diskus (Fluticasone/Salmeterol) 1 Each Disk.w.dev 1 Puff IH BID Mirtazapine 30 Mg Tablet 1 Tab PO QHS Simvastatin 20 Mg Tablet 1 Tab PO QHS Lisinopril 20 Mg Tablet 1 Tab PO DAILY Vitals/I & O Vital Sign - Last 24 Hours 11/28/16 11/28/16 11/28/16 11/28/16 11:00 11:53 15:00 16:16 Temp 97.4 97.5 97.4 97.5 Pulse 73 86 Resp 20 20 B/P 126/58 146/54 Pulse Ox 94 93 O2 Delivery Nasal Cannula Nasal Cannula Nasal Cannula Nasal Cannula O2 Flow Rate 4.0 4.0 4.0 4.0 11/28/16 11/28/16 11/28/16 11/28/16 19:41 19:52 20:00 22:58 Temp 97.6 98.2 97.6 98.2 Pulse 72 70 Resp 18 18 B/P 142/60 139/60 Pulse Ox 91 O2 Delivery Nasal Cannula Nasal Cannula Nasal Cannula O2 Flow Rate 4.0 4.0 4.0 11/29/16 11/29/16 11/29/16 11/29/16 02:51 07:00 07:50 08:00 Temp 97.8 98.2 97.8 98.2 Pulse 68 72 Resp 18 18 B/P 148/63 155/52 Pulse Ox 93 94 92 O2 Delivery Nasal Cannula Nasal Cannula Nasal Cannula Nasal Cannula O2 Flow Rate 4.0 2.0 2.0 4.0 11/29/16 09:06 Pulse 72 B/P 155/52 Intake and Output 11/28/16 11/28/16 11/29/16 15:00 23:00 07:00 Intake Total 600 ml 200 ml Balance 600 ml 200 ml SEEMA BLANCHARD MD Nov 29, 2016 10:42
[2016-11-29 11:00] VITALS: BP 155/49
--- NOTE | 2016-11-29 11:19 | PDOC ---
PULMONARY PROGRESS NOTES Subjective Pt feels better Vitals Vital Signs Date Time Temp Pulse Resp B/P Pulse Ox O2 Delivery O2 Flow Rate FiO2 11/29/16 11:00 98.0 69 18 155/49 95 Nasal Cannula 2.0 98.0 ROS: No Nausea, No Chest Pain, No Abdominal Pain General: Alert Lungs: Wheezing Cardiovascular: S1, S2 Abdomen: Soft Neuro Exam: Alert Extremities: No Edema Skin: Warm Labs Laboratory Tests Test 11/28/16 11:35 O2 Saturation 95% (92-99) Arterial Blood pH 7.43 (7.35-7.45) Arterial Blood pCO2 at Patient Temp 49mmHg (35-46) Arterial Blood pO2 at Patient Temp 68mmHg (65-108) Arterial Blood HCO3 32mmol/L (21-28) Arterial Blood Base Excess 6mmol/L (-3-3) FiO2 36 Laboratory Tests Test 11/28/16 11:35 O2 Saturation 95% (92-99) Arterial Blood pH 7.43 (7.35-7.45) Arterial Blood pCO2 at Patient Temp 49mmHg (35-46) Arterial Blood pO2 at Patient Temp 68mmHg (65-108) Arterial Blood HCO3 32mmol/L (21-28) Arterial Blood Base Excess 6mmol/L (-3-3) FiO2 36 Medications Active Scripts Medications Dose Route/Sig Days Date Category Proair Hfa Inhaler (Albuterol Sulfate) 8.5 Gm Hfa.aer.ad 1 Puff INH PRN Q6HRS PRN 11/25/16 Reported Advair 500-50 Diskus (Fluticasone/Salmeterol) 1 Each Disk.w.dev 1 Puff IH BID 11/25/16 Reported Mirtazapine 30 Mg Tablet 1 Tab PO QHS 11/25/16 Reported Simvastatin 20 Mg Tablet 1 Tab PO QHS 11/25/16 Reported Lisinopril 20 Mg Tablet 1 Tab PO DAILY 11/25/16 Reported Impression . 1. Dyspnea with acute hypoxic respiratory failure secondary to acute exacerbation of chronic obstructive pulmonary disease in the patient, who has been smoking since age 10 and continues to smoke cigarettes. 2. Possible acute viral bronchitis. Chest x-ray is clear. 3. Underlying obesity. 4. Severe post infectious cough 5. Ct chest pulmonary nodule Plan . needs o2 RX written for 2 rest 4 extertion follow up with me in 3 months RX for Chantix and Tessalon SEUN Barron MD Nov 29, 2016 11:19
[2016-11-29] MEDS ORDERED: DOXY100T PO (12:04)
[2016-11-29 15:00] VITALS: BP 143/63
--- NOTE | 2016-12-01 23:16 | DS ---
DATE OF DISCHARGE: 11/29/2016 DISCHARGE DIAGNOSES: 1. Acute hypoxic respiratory failure due to chronic obstructive pulmonary disease exacerbation, resolving. 2. Nicotine use. 3. Hyperlipidemia. 4. Hypertension. 5. Depression. BRIEF HOSPITAL COURSE: A 71-year-old female patient admitted to the hospital on 11/24/2016 for severe COPD exacerbation. During hospitalization, she was placed on IV Solu-Medrol; however, her symptoms are not improving. The patient had a CT of the chest, which showed multiple nodules, severe emphysema, and pulmonary nodules seen on the right lower lobe and she was recommended to have a repeat CAT scan in 3-4 months. At the time of her examination, the patient's symptoms have been improving; however, she is still on 2 liters of oxygen and with activity, she needs 4 liters of oxygen. She has been sent home in stable condition with supplemental oxygen and recommended to follow up with Dr. Barrera for a repeat CAT scan of the chest. DISCHARGE PHYSICAL EXAMINATION: GENERAL: Alert and oriented x 3. HEART: S1, S2 present. LUNGS: Anterior chest clear. ABDOMEN: Soft, nontender. No organomegaly. EXTREMITIES: No edema. DISCHARGE DISPOSITION: Home. DISCHARGE CONDITION: Stable. MEDICATIONS: Reviewed and reconciled. Please see MRAD. DISCHARGE INSTRUCTIONS: Follow up with ____ in 1-4 weeks for a repeat CT chest. Total time spent for discharge is 35 minutes for patient education, counseling, and coordination of care. SEEMA BLANCHARD MD DR: OSCAR/marlon JOB#: [id number] / [id number] SUSANAD
== END 2016-11-29 16:55 | disposition home or self-care (01) | DRG 189 ==
LOC: ER 15:42 → 6 SOUTH 16:50
PROVIDERS: ADMIT Internal Medicine; ATTEND Internal Medicine
DX: J96.01 Acute respiratory failure with hypoxia (principal); J44.1 Chronic obstructive pulmonary disease with (acute) exacerbation; E44.1 Mild protein-calorie malnutrition; J44.0 Chronic obstructive pulmonary disease with (acute) lower respiratory infection; E66.9 Obesity, unspecified; E78.00 Pure hypercholesterolemia, unspecified; J20.8 Acute bronchitis due to other specified organisms; E78.5 Hyperlipidemia, unspecified; F17.210 Nicotine dependence, cigarettes, uncomplicated; F32.9 Major depressive disorder, single episode, unspecified; I10 Essential (primary) hypertension; Z90.710 Acquired absence of both cervix and uterus; Z88.0 Allergy status to penicillin; Z68.33 Body mass index [BMI] 33.0-33.9, adult
CPT/HCPCS: 36415; 36600; 71010; 71260; 80048; 80053; 82553; 82805; 83880; 84484; 85027; 87040; 87804; 93005; 94250; 94620; 94640; 94760; 96374; J1650; J2920; J2930; J7512; J7620; Q0163; Q9967; 97530; 99285-25

== ENCOUNTER 2017-01-12 10:42 | Inpatient (IN) | payer OTHER ==
[~2017-01-12] VITALS: Ht 160 cm; Wt 83.9 kg
[~2017-01-12 10:42] MED LIST: DOXY100T PO; FLUT1DIS5 IH; LISI-334 PO; MIRT30TA3 PO; PROAIR HFA8.5 GM INH; SIMV20TA3 PO
--- NOTE | 2017-01-12 11:26 | RAD ---
Portable AP chest x-ray performed at 1102 History: Severe shortness of breath. History of hypertension and diabetes and COPD and smoking. Comparison: November 24, 2016. Findings: There is a new consolidative lung infiltrate within the right upper lobe consistent with pneumonia. Chronic scarring is seen within the left lung base. No pneumothorax or significant pleural effusion is seen. The heart size and mediastinum are stable. IMPRESSION: New consolidative right upper lobe pneumonia.
[2017-01-12] MEDS ORDERED: IPRATRPIUM/ALBUTEROL 0.5/2.5MG 3 ML NEBU. NEB ONE (11:30)
[2017-01-12] MEDS ORDERED: ACETAMINOPHEN 500 MG TABLET PO ONE (11:30)
[2017-01-12] MEDS ORDERED: IV NORMAL SALINE 500ML BAG 500 ML IV ONE (11:30)
[2017-01-12 11:32] LABS: BASO % 0 % (0-3); EOS % 0 % (0-3); HEMATOCRIT 32.9 % (36.0-47.0); HEMOGLOBIN 11.2 g/dL (12.0-15.5); LYMPH # 0.9 x10^3/uL (1.0-4.8); LYMPH % 4 % (24-48); MEAN CORPUSCULAR HEMOGLOBIN 29 pg (25-35); MEAN CORPUSCULAR HGB CONC 34 g/dL (31-37); MEAN CORPUSCULAR VOLUME 84 fL (79-100); MONO % 9 % (0-9); NEUT % 86 % (31-73); PLATELET COUNT 290 x10^3/uL (140-400); RED BLOOD COUNT 3.93 x10^6/uL (3.50-5.40); RED CELL DISTRIBUTION WIDTH 14.6 % (11.5-14.5); WHITE BLOOD COUNT 19.5 x10^3/uL (4.0-11.0)
--- NOTE | 2017-01-12 11:43 | ED.ADGEN ---
Past Medical History Past Medical History: COPD, Depression, High Cholesterol, Hypertension Past Surgical History: Hysterectomy, Tonsillectomy Alcohol Use: None Drug Use: None Adult General Chief Complaint Chief Complaint: SHORTNESS OF BREATH HPI HPI Patient is a 71 year old woman, with history of COPD, uses 2-4 L of nasal cannula at baseline, hypertension, hyperlipidemia, who presents to the emergency department with complaint of fever, chills, nonproductive cough, shortness of breath and generalized malaise and body aches over the past week intermittent. Patient states that she was admitted to the hospital about a month ago with similar symptoms, at that time she had a COPD exacerbation. She states she has been compliant with all medications, she denies any recent travel or procedures, denies any missed doses of medication or changes in medication. No swelling extremities, no chest pain, complains of nausea but no abdominal pain or vomiting, no urinary complaints. Patient noted to be hypoxic on 2 L at rest, which is her typical use of oxygen at rest, increase to 4 L, with oxygen saturations in the mid 90s. Mildly tachycardic, heart rate 105, sinus tach. Review of Systems Review of Systems Constitutional: Fevers and chills, subjective. Eyes: Denies change in visual acuity. [] HENT: Denies nasal congestion or sore throat. [] Respiratory: Productive cough with shortness of breath. Cardiovascular: Denies chest pain or edema. [] GI: Denies abdominal pain, nausea, vomiting, bloody stools or diarrhea. [] : Denies dysuria. [] Musculoskeletal: Denies back pain or joint pain. [] Integument: Denies rash. [] Neurologic: Denies headache, focal weakness or sensory changes. [] Endocrine: Denies polyuria or polydipsia. [] Lymphatic: Denies swollen glands. [] Psychiatric: Denies depression or anxiety. [] Current Medications Current Medications Current Medications Medications (Trade) Dose Ordered Sig/Lance Start Time Stop Time Status Last Admin Dose Admin Acetaminophen (Tylenol) 1,000 mg 1X ONCE 01/12/17 11:30 01/12/17 11:31 DC 01/12/17 11:49 1,000 MG Albuterol/ Ipratropium 3 ml 3 ml 1X ONCE 01/12/17 11:30 01/12/17 11:31 DC 01/12/17 11:49 3 ML Sodium Chloride (Iv Sodium Chloride 0.9% 500ml Bag) 500 ml @ 500 mls/hr 1X ONCE 01/12/17 11:30 01/12/17 12:29 DC 01/12/17 11:30 500 MLS/HR Allergies Allergies Allergies Coded Allergies Type Severity Reaction Last Updated Verified Penicillins Allergy Intermediate RASH 11/24/16 Yes Physical Exam Physical Exam Constitutional: Well developed, well nourished, mild diaphoretic, ill in appearance. Nasal cannula in place. HENT: Normocephalic, atraumatic, bilateral external ears normal, oropharynx moist, no oral exudates, nose normal. [] Eyes: PERRLA, EOMI, conjunctiva normal, no discharge. [] Neck: Normal range of motion, no tenderness, supple, no stridor. [] Cardiovascular: Tachycardic, regular, no murmur, [no rubs or gallops.] Lungs & Thorax: Diminished breath sounds throughout, with inspiratory wheezes, and rhonchi noted in the left upper lung field, diminished breath sounds throughout. No chest wall crepitus or tenderness. Abdomen: Bowel sounds normal, soft, no tenderness, no masses, no pulsatile masses. [] Skin: Warm, dry, no erythema, no rash. [] Back: No tenderness, no CVA tenderness. [] Extremities: No tenderness, no cyanosis, no clubbing, ROM intact, no edema. Negative Homans sign. [] Neurologic: Alert and oriented X 3, normal motor function, normal sensory function, no focal deficits noted. [] Psychologic: Affect normal, judgement normal, mood normal. [] Current Patient Data Vital Signs Vital Signs Date Time Temp Pulse Resp B/P Pulse Ox O2 Delivery O2 Flow Rate FiO2 01/12/17 11:54 100 26 149/54 96 Nasal Cannula 5 01/12/17 10:54 99.9 99.9 Lab Values Laboratory Tests Test 01/12/17 11:04 01/12/17 11:20 01/12/17 11:40 Sodium Level 132mmol/L (136-145) L Potassium Level 3.6mmol/L (3.5-5.1) Chloride Level 94mmol/L (98-107) L Carbon Dioxide Level 28mmol/L (21-32) Anion Gap 10 (6-14) Blood Urea Nitrogen 16mg/dL (7-20) Creatinine 1.0mg/dL (0.6-1.0) Estimated GFR (Cockcroft-Gault) 54.5 BUN/Creatinine Ratio 16 (6-20) Glucose Level 97mg/dL (70-99) Calcium Level 9.0mg/dL (8.5-10.1) Total Bilirubin 0.7mg/dL (0.2-1.0) Aspartate Amino Transferase (AST) 33U/L (15-37) Alanine Aminotransferase (ALT) 30U/L (14-59) Alkaline Phosphatase 201U/L (46-116) H Total Protein 7.2g/dL (6.4-8.2) Albumin 2.2g/dL (3.4-5.0) L Albumin/Globulin Ratio 0.4 (1.0-1.7) L White Blood Count 19.5x10^3/uL (4.0-11.0) H Red Blood Count 3.93x10^6/uL (3.50-5.40) Hemoglobin 11.2g/dL (12.0-15.5) L Hematocrit 32.9% (36.0-47.0) L Mean Corpuscular Volume 84fL (79-100) Mean Corpuscular Hemoglobin 29pg (25-35) Mean Corpuscular Hemoglobin Concent 34g/dL (31-37) Red Cell Distribution Width 14.6% (11.5-14.5) H Platelet Count 290x10^3/uL (140-400) Neutrophils (%) (Auto) 86% (31-73) H Lymphocytes (%) (Auto) 4% (24-48) L Monocytes (%) (Auto) 9% (0-9) Eosinophils (%) (Auto) 0% (0-3) Basophils (%) (Auto) 0% (0-3) Neutrophils # (Auto) 16.8x10^3uL (1.8-7.7) H Lymphocytes # (Auto) 0.9x10^3/uL (1.0-4.8) L Monocytes # (Auto) 1.8x10^3/uL (0.0-1.1) H Eosinophils # (Auto) 0.0x10^3/uL (0.0-0.7) Basophils # (Auto) 0.0x10^3/uL (0.0-0.2) Segmented Neutrophils % 83% (35-66) H Band Neutrophils % 5% (0-9) Lymphocytes % 3% (24-48) L Monocytes % 9% (0-10) Platelet Estimate Adequate (ADEQUATE) Lactic Acid Level 0.9mmol/L (0.4-2.0) Urine Collection Type Unknown Urine Color Deepa Urine Clarity Cloudy Urine pH 6.0 Urine Specific [place] 1.020 Urine Protein 30mg/dL (NEG-TRACE) Urine Glucose (UA) Negativemg/dL (NEG) Urine Ketones (Stick) 15mg/dL (NEG) Urine Blood Negative (NEG) Urine Nitrite Negative (NEG) Urine Bilirubin Small (NEG) Urine Urobilinogen Dipstick 1.0mg/dL (0.2 mg/dL) Urine Leukocyte Esterase Trace (NEG) Urine RBC 0/HPF (0-2) Urine WBC 1-4/HPF (0-4) Urine Squamous Epithelial Cells Mod/LPF Urine Bacteria 0/HPF (0-FEW) Troponin I Quantitative < 0.017ng/mL (0.000-0.055) SU-Zlm-[id number]-Type Natriuretic Peptide 949pg/mL (0-124) H Laboratory Tests 01/12/17 11:20 Laboratory Tests 01/12/17 11:04 EKG EKG EC: Sinus tachycardia, heart rate 111 beats minute, upright axis, QTC of 433, IL 160, QRS of 80, no ST elevations or depressions, aside from sinus tachycardia, no other concerning findings identified. As interpreted by me. [] Radiology/Procedures Radiology/Procedures [] [facility] [address] [place] [address] IMAGING REPORT Signed PATIENT: NOHEMY SCHREIBER ACCOUNT: [id number] : 1945 LOCATION: ER AGE: 71 SEX: F EXAM STATUS: PRE ER ORD. PHYSICIAN: DIANA SANTANA DO REASON: SOB PROCEDURE: PORTABLE CHEST 1V Portable AP chest x-ray performed at 1102 History: Severe shortness of breath. History of hypertension and diabetes and COPD and smoking. Comparison: November 24, 2016. Findings: There is a new consolidative lung infiltrate within the right upper lobe consistent with pneumonia. Chronic scarring is seen within the left lung base. No pneumothorax or significant pleural effusion is seen. The heart size and mediastinum are stable. IMPRESSION: New consolidative right upper lobe pneumonia. DICTATED and SIGNED BY: CHAPARRO DAVIS MD DATE: 01/12/17 1122 CC: DIANA SANTANA DO; NAM SCHAFER ~ Course & Med Decision Making Course & Med Decision Making Pertinent Labs and Imaging studies reviewed. (See chart for details) Patient received IV fluids, supplemental oxygen, neb treatments and steroids in the ED after initial evaluation. Chest x-ray reveals a left upper lobe infiltrate. I did discuss these findings with patient, she is feeling more comfortable at this time, although she remains slightly tachycardic, dyspnea is improved at rest, is agreeable for admission to the hospital for treatment of pneumonia, which will treat his healthcare associated, as patient was hospitalized a month ago for more than 48 hours. Patient initiated on cefepime, as she has an allergy to penicillin is only a rash, and vancomycin, blood cultures are pending. Findings as above discussed with Dr. Cuevas of internal medicine, patient accepted to his service as a full admission to the medical telemetry floor, for continued medical management and monitoring, with consultation for pulmonary critical care. Bridge orders entered per discussion. Dragon Disclaimer Dragon Disclaimer This electronic medical record was generated, in whole or in part, using a voice recognition dictation system. Departure Impression: Primary Impression: HCAP (healthcare-associated pneumonia) Additional Impression: Hypoxia Disposition: 09 ADMITTED INPATIENT Admitting Physician: Elizabeth Cuevas Condition: IMPROVED Problem Qualifiers DIANA SANTANA DO Jan 12, 2017 11:43
[2017-01-12 11:57] LABS: BILIRUBIN,URINE SMALL (NEG); GLUCOSE,URINE NEGATIVE (NEG); NITRITE,URINE NEGATIVE (NEG); PROTEIN,URINE 30 mg/dL (NEG-TRACE)
[2017-01-12] MEDS ORDERED: methylPREDNISolone SOD SUCC PF 125 MG/2 ML VIAL. IV ONE (12:00)
[2017-01-12 12:10] LABS: ALBUMIN 2.2 g/dL (3.4-5.0); ALBUMIN/GLOBULIN RATIO 0.4 (1.0-1.7); GFR 54.5; POTASSIUM 3.6 mmol/L (3.5-5.1); TOTAL BILIRUBIN 0.7 mg/dL (0.2-1.0); TOTAL PROTEIN 7.2 g/dL (6.4-8.2)
[2017-01-12 12:14] LABS: BACTERIA,URINE 0 /HPF (0-FEW); RBC,URINE 0 /HPF (0-2); SQUAMOUS EPITHELIAL CELL,UR MOD /LPF
[2017-01-12] MEDS ORDERED: VANCOMYCIN 1.5 GM in IV NORMAL SALINE 500ML BAG 500 ML IV ONE (12:15)
[2017-01-12] MEDS ORDERED: CEFEPIME HCL 1 GM in IV NORMAL SALINE 50ML 50 ML IV ONE (12:30)
--- NOTE | 2017-01-12 12:30 | EKG ---
[facility] [address] [place] [address] Test Date: 2017-01-12 Test Time: 10:57:15 Pat Name: NOHEMY SCHREIBER Department: Room: [facility] Gender: F Wall Attendant: : 1945 Requested By: DIANA SANTANA Order Number: [id number] Reading MD: Sanju Abdalla Measurements Intervals [place] Rate: 111 P: 45 UT: 160 QRS: 45 QRSD: 80 T: 36 QT: 316 QTc: 433 Interpretive Statements SINUS TACHYCARDIA Electronically Signed On 01-16-2017 9:48:23 CDT by Sanju Abdalla
[2017-01-12 12:45] LABS: PLT ESTIMATE ADEQUATE (ADEQUATE)
[2017-01-12 13:15] VITALS: BP 130/52
--- NOTE | 2017-01-12 13:21 | ACF ---
Admission Forms Criteria PNEUMONIA, HOSPITAL-ACQUIRED AND ATELECTASIS Clinical Indications for Inpatient Care (Place 'X' for any and all applicable criteria): Ongoing inpatient care may be indicated for hospital-acquired atelectasis or pneumonia[N] with ANY ONE of the following(2)(5)(47)(48)(49): [X]I. Mechanical ventilation [N] [ ]II. Temperature less than 35 degrees C (95 degrees F) or greater than 39.5 degrees C (103.1 degrees F) [ ]III. Tachypnea (eg, respiratory rate greater than 30 breaths per minute) [ ]IV. Hemodynamic instability [ ]V. Respiratory distress [ ]. Significant hypoxemia as indicated by ANY ONE of the following: [ ]a) Previously normal respiratory status with ANY ONE of the following: [ ]i) SaO2 less than 90% or PO2 less than 60 mm Hg (8.0 kPa )) on room air [ ]ii) Oxygen required to keep SaO2 greater than 90% [ ]b) Chronic baseline hypoxemia with significant deterioration (eg, O2 saturation decrease more than 5%) [ ]c) Required supplemental oxygen performable only in acute inpatient setting [ ]VII. Significant hypoventilation as indicated by ANY ONE of the following: [ ]a) Previously normal with PCO2 greater than 42 mm Hg (5.6 kPa) and pH less than 7.35 [ ]b) Documented PCO2 increase greater than 5 mm Hg (0.7 kPa) from disease baseline [ ]VIII.Severe secretion production requiring frequent suctioning Extended stay beyond goal length of stay for primary condition may be needed until ALL of the following are present(28)(29): [ ]a) Microbiologic cause of infection identified and appropriate antibiotic treatment in place, or satisfactory clinical response to empiric antibiotic therapy [ ]b) Hemodynamic stability [ ]c) No requirement for supplemental oxygen performable only in acute inpatient setting [ ]d) Chest tube absent or chest catheter management regimen established for next level of care [ ]e) Suctioning, pulmonary toilet, or other therapy performable at a lower level of care [ ]f) Fever absent, improved, or manageable at lower level of care [ ]g) Medical comorbidities manageable at a lower level of care The original [facility] content created by Valentina Chen has been revised. The portions of the content which have been revised are identified through the use of italic text or in bold, and [facility] has neither reviewed nor approved the modified material. All other unmodified content is copyright [facility] Please see references footnoted in the original [facility] edition 2016 Admission Criteria Met?: Yes INDIGO FAULKNER Jan 12, 2017 13:21
[2017-01-12] MEDS: CEFEPIME HCL 1 GM in IV NORMAL SALINE 50ML 50 ML IV SCH ×2 (14:00→20:47)
[2017-01-12] MEDS ORDERED: fentaNYL PF VIAL 100 MCG/2 ML VIAL IV PRN (14:00)
[2017-01-12] MEDS ORDERED: AZTREONAM 2 GM in IV NORMAL SALINE 100ML 100 ML IV SCH (14:00)
[2017-01-12] MEDS ORDERED: ONDANSETRON PF 4 MG/2 ML VIAL. IV PRN (14:00)
[2017-01-12] MEDS ORDERED: ACETAMINOPHEN 325 MG TABLET. PO PRN (14:00)
[2017-01-12 15:00] VITALS: BP 118/57
[2017-01-12] MEDS: IPRATRPIUM/ALBUTEROL 0.5/2.5MG 3 ML NEBU. NEB SCH ×2 (15:59→19:53)
--- NOTE | 2017-01-12 16:30 | PDOC ---
PULMONARY PROGRESS NOTES Vitals Vital Signs Date Time Temp Pulse Resp B/P Pulse Ox O2 Delivery O2 Flow Rate FiO2 01/12/17 16:02 93 Nasal Cannula 4.0 01/12/17 15:00 97.5 84 18 118/57 97.5 General: Alert Lungs: Wheezing Cardiovascular: S1, S2 Abdomen: Soft Extremities: No Edema Labs Laboratory Tests Test 01/12/17 11:04 01/12/17 11:20 01/12/17 11:40 Sodium Level 132mmol/L (136-145) Potassium Level 3.6mmol/L (3.5-5.1) Chloride Level 94mmol/L (98-107) Carbon Dioxide Level 28mmol/L (21-32) Anion Gap 10 (6-14) Blood Urea Nitrogen 16mg/dL (7-20) Creatinine 1.0mg/dL (0.6-1.0) Estimated GFR (Cockcroft-Gault) 54.5 BUN/Creatinine Ratio 16 (6-20) Glucose Level 97mg/dL (70-99) Calcium Level 9.0mg/dL (8.5-10.1) Total Bilirubin 0.7mg/dL (0.2-1.0) Aspartate Amino Transf (AST/SGOT) 33U/L (15-37) Alanine Aminotransferase (ALT/SGPT) 30U/L (14-59) Alkaline Phosphatase 201U/L (46-116) Total Protein 7.2g/dL (6.4-8.2) Albumin 2.2g/dL (3.4-5.0) Albumin/Globulin Ratio 0.4 (1.0-1.7) White Blood Count 19.5x10^3/uL (4.0-11.0) Red Blood Count 3.93x10^6/uL (3.50-5.40) Hemoglobin 11.2g/dL (12.0-15.5) Hematocrit 32.9% (36.0-47.0) Mean Corpuscular Volume 84fL (79-100) Mean Corpuscular Hemoglobin 29pg (25-35) Mean Corpuscular Hemoglobin Concent 34g/dL (31-37) Red Cell Distribution Width 14.6% (11.5-14.5) Platelet Count 290x10^3/uL (140-400) Neutrophils (%) (Auto) 86% (31-73) Lymphocytes (%) (Auto) 4% (24-48) Monocytes (%) (Auto) 9% (0-9) Eosinophils (%) (Auto) 0% (0-3) Basophils (%) (Auto) 0% (0-3) Neutrophils # (Auto) 16.8x10^3uL (1.8-7.7) Lymphocytes # (Auto) 0.9x10^3/uL (1.0-4.8) Monocytes # (Auto) 1.8x10^3/uL (0.0-1.1) Eosinophils # (Auto) 0.0x10^3/uL (0.0-0.7) Basophils # (Auto) 0.0x10^3/uL (0.0-0.2) Segmented Neutrophils % 83% (35-66) Band Neutrophils % 5% (0-9) Lymphocytes % 3% (24-48) Monocytes % 9% (0-10) Platelet Estimate Adequate (ADEQUATE) Lactic Acid Level 0.9mmol/L (0.4-2.0) Urine Collection Type Unknown Urine Color Deepa Urine Clarity Cloudy Urine pH 6.0 Urine Specific [place] 1.020 Urine Protein 30mg/dL (NEG-TRACE) Urine Glucose (UA) Negativemg/dL (NEG) Urine Ketones (Stick) 15mg/dL (NEG) Urine Blood Negative (NEG) Urine Nitrite Negative (NEG) Urine Bilirubin Small (NEG) Urine Urobilinogen Dipstick 1.0mg/dL (0.2 mg/dL) Urine Leukocyte Esterase Trace (NEG) Urine RBC 0/HPF (0-2) Urine WBC 1-4/HPF (0-4) Urine Squamous Epithelial Cells Mod/LPF Urine Bacteria 0/HPF (0-FEW) Troponin I Quantitative < 0.017ng/mL (0.000-0.055) LV-Wim-J-Type Natriuretic Peptide 949pg/mL (0-124) Laboratory Tests Test 01/12/17 11:04 01/12/17 11:20 01/12/17 11:40 Sodium Level 132mmol/L (136-145) Potassium Level 3.6mmol/L (3.5-5.1) Chloride Level 94mmol/L (98-107) Carbon Dioxide Level 28mmol/L (21-32) Anion Gap 10 (6-14) Blood Urea Nitrogen 16mg/dL (7-20) Creatinine 1.0mg/dL (0.6-1.0) Estimated GFR (Cockcroft-Gault) 54.5 BUN/Creatinine Ratio 16 (6-20) Glucose Level 97mg/dL (70-99) Calcium Level 9.0mg/dL (8.5-10.1) Total Bilirubin 0.7mg/dL (0.2-1.0) Aspartate Amino Transf (AST/SGOT) 33U/L (15-37) Alanine Aminotransferase (ALT/SGPT) 30U/L (14-59) Alkaline Phosphatase 201U/L (46-116) Total Protein 7.2g/dL (6.4-8.2) Albumin 2.2g/dL (3.4-5.0) Albumin/Globulin Ratio 0.4 (1.0-1.7) White Blood Count 19.5x10^3/uL (4.0-11.0) Red Blood Count 3.93x10^6/uL (3.50-5.40) Hemoglobin 11.2g/dL (12.0-15.5) Hematocrit 32.9% (36.0-47.0) Mean Corpuscular Volume 84fL (79-100) Mean Corpuscular Hemoglobin 29pg (25-35) Mean Corpuscular Hemoglobin Concent 34g/dL (31-37) Red Cell Distribution Width 14.6% (11.5-14.5) Platelet Count 290x10^3/uL (140-400) Neutrophils (%) (Auto) 86% (31-73) Lymphocytes (%) (Auto) 4% (24-48) Monocytes (%) (Auto) 9% (0-9) Eosinophils (%) (Auto) 0% (0-3) Basophils (%) (Auto) 0% (0-3) Neutrophils # (Auto) 16.8x10^3uL (1.8-7.7) Lymphocytes # (Auto) 0.9x10^3/uL (1.0-4.8) Monocytes # (Auto) 1.8x10^3/uL (0.0-1.1) Eosinophils # (Auto) 0.0x10^3/uL (0.0-0.7) Basophils # (Auto) 0.0x10^3/uL (0.0-0.2) Segmented Neutrophils % 83% (35-66) Band Neutrophils % 5% (0-9) Lymphocytes % 3% (24-48) Monocytes % 9% (0-10) Platelet Estimate Adequate (ADEQUATE) Lactic Acid Level 0.9mmol/L (0.4-2.0) Urine Collection Type Unknown Urine Color Deepa Urine Clarity Cloudy Urine pH 6.0 Urine Specific [place] 1.020 Urine Protein 30mg/dL (NEG-TRACE) Urine Glucose (UA) Negativemg/dL (NEG) Urine Ketones (Stick) 15mg/dL (NEG) Urine Blood Negative (NEG) Urine Nitrite Negative (NEG) Urine Bilirubin Small (NEG) Urine Urobilinogen Dipstick 1.0mg/dL (0.2 mg/dL) Urine Leukocyte Esterase Trace (NEG) Urine RBC 0/HPF (0-2) Urine WBC 1-4/HPF (0-4) Urine Squamous Epithelial Cells Mod/LPF Urine Bacteria 0/HPF (0-FEW) Troponin I Quantitative < 0.017ng/mL (0.000-0.055) OH-Xif-U-Type Natriuretic Peptide 949pg/mL (0-124) Medications Active Scripts Medications Dose Route/Sig Days Date Category Doxycycline Hyclate 100 Mg Tablet 100 Mg PO BID 11/29/16 Rx Proair Hfa Inhaler (Albuterol Sulfate) 8.5 Gm Hfa.aer.ad 1 Puff INH PRN Q6HRS PRN 11/25/16 Reported Advair 500-50 Diskus (Fluticasone/Salmeterol) 1 Each Disk.w.dev 1 Puff IH BID 11/25/16 Reported Mirtazapine 30 Mg Tablet 1 Tab PO QHS 11/25/16 Reported Simvastatin 20 Mg Tablet 1 Tab PO QHS 11/25/16 Reported Lisinopril 20 Mg Tablet 1 Tab PO DAILY 11/25/16 Reported Impression . FULL CONSULT DICTATED SEE ORDERS COVER FOR GRAM POS/NEG PNEUMONIA SEUN BALES MD Jan 12, 2017 16:30
[2017-01-12] MEDS ORDERED: ASPI-482 PO (16:57)
[2017-01-12] MEDS: VANCOMYCIN PER PHARMACY MC PRN ×2 (17:27→17:29)
[2017-01-12 19:00] VITALS: BP 140/87
[2017-01-12] MEDS ORDERED: IPRATRPIUM/ALBUTEROL 0.5/2.5MG 3 ML NEBU. NEB SCH (20:30)
[2017-01-12] MEDS ORDERED: ALBUTEROL SULFATE 2.5 MG/3 ML NEBU. NEB PRN (20:30)
[2017-01-12] MEDS: MIRTAZAPINE 15 MG TABLET PO SCH (20:46)
[2017-01-12] MEDS: SIMVASTATIN 20 MG TABLET PO SCH (20:46)
[2017-01-12] MEDS: IV NORMAL SALINE 1000ML BAG 1,000 ML IV SCH (20:47)
[2017-01-12 22:42] VITALS: BP 135/70
--- NOTE | 2017-01-12 22:42 | HP ---
ADMIT DATE: 01/12/2017 CHIEF COMPLAINT: Shortness of breath, cough, and weakness. HISTORY OF PRESENT ILLNESS: The patient is a pleasant 71-year-old female, who has known COPD. She presents to the ER with shortness of breath, cough, and weakness. Imaging studies have shown left-sided pneumonia. She normally uses 2 liters of oxygen at home, although requiring 4 liters here. She is hypoxic. I have discussed the case with the ER physician. We are going to admit the patient, give her breathing treatments, oxygen, antibiotics, and consult Pulmonary Medicine. PAST MEDICAL HISTORY: COPD, depression, hyperlipidemia, hypertension, hysterectomy, and tonsillectomy. ALLERGIES: PENICILLIN. FAMILY HISTORY: Diabetes. SOCIAL HISTORY: She quit smoking, no drinking or drugs. MEDICATIONS: Reviewed. Please refer to the MRAD. REVIEW OF SYSTEMS: GENERAL: No history of weight change, weakness or fevers. SKIN: No bruising, hair changes or rashes. EYES: No blurred, double or loss of vision. NOSE AND THROAT: No history of nosebleeds, hoarseness or sore throat. HEART: No history of palpitations, chest pain or shortness of breath on exertion. LUNGS: Complains of shortness of breath. GASTROINTESTINAL: Denies changes in appetite, nausea, vomiting, diarrhea, or constipation. GENITOURINARY: No history of frequency, urgency, hesitancy or nocturia. NEUROLOGIC: Denies history of numbness, tingling, tremor or weakness. PSYCHIATRIC: No history of panic, anxiety or depression. ENDOCRINE: No history of heat or cold intolerance, polyuria or polydipsia. EXTREMITIES: Denies muscle weakness, joint pain, pain on walking or stiffness. PHYSICAL EXAMINATION: VITAL SIGNS: Temperature afebrile, pulse is 68, respirations 18, and blood pressure 162/70. GENERAL: She is alert, cooperative. HEART: Normal S1, S2. LUNGS: Diminished with left crackles. ABDOMEN: Soft, positive bowel sounds. EXTREMITIES: 1+ edema. SKIN: No rashes. PSYCHIATRIC: She is stable. VASCULAR: Good capillary refill. ENDOCRINE: No thyromegaly. LYMPHATICS: No cervical nodes. HEMATOPOIETIC: No bruising. LABORATORY DATA: White count 19, hemoglobin 11, and platelets 290. Electrolytes: Sodium 132, potassium 3.6, chloride 94, bicarbonate 28, BUN 16, creatinine 1, glucose 97. Troponin is 0. Chest x-ray shows right upper lobe pneumonia. ASSESSMENT AND PLAN: Pneumonia. The patient has been admitted. We will give her IV antibiotics, breathing treatments, oxygen, and consider steroids if Pulmonary agrees. Consult Pulmonary Medicine. PT, OT. Resume home medicines. detention evaluation. MARK LINDER DO DR: FERN/marlon JOB#: [id number] / [id number]
--- NOTE | 2017-01-12 23:41 | CONS ---
DATE OF CONSULTATION: 01/12/2017 ATTENDING PHYSICIAN: Dr. Cuevas. REASON FOR CONSULTATION: The patient seen in pulmonary consultation at the request of Dr. Cuevas for abnormal x-ray and increasing shortness of air. HISTORY OF PRESENT ILLNESS: The patient is 71-year-old with COPD on oxygen supplementation for the past month, 2 liters at rest and 4 with exertion and underlying COPD, actually was admitted here on 11/25/2016 with acute exacerbation of COPD, presented with 2-3 day history of increasing shortness of breath, fever, chills, night sweats, productive cough. Chest x-ray revealed new right upper lobe infiltrate. She was admitted. She is currently on coverage for both gram-negative and gram-positive organisms. The patient denies hemoptysis. No nausea or vomiting. PAST MEDICAL HISTORY: 1. Chronic respiratory failure and has been on oxygen supplementation for the past month, 2 liters at rest and 4 with exertion. 2. COPD. 3. Tobacco dependence. PAST SURGICAL HISTORY: Hysterectomy. FAMILY HISTORY: No family history of lung disorders. ALLERGIES: TO PENICILLIN. CURRENT MEDICATIONS: List was reviewed. Please see the MRAD. SOCIAL HISTORY: She smokes on a daily basis. Denies any alcohol intake. REVIEW OF SYSTEMS: As indicated above, otherwise, a 10-point system was reviewed and negative. PHYSICAL EXAMINATION: GENERAL: The patient did not appear to be septic. VITAL SIGNS: Stable. O2 saturation was greater than 92%. HEENT: Eyes, the sclerae were nonicteric. NECK: Jugular venous distention was not elevated. No lymphadenopathy. CHEST: Full expansion. LUNGS: Rales in the right upper lobe, otherwise no wheezes. CARDIOVASCULAR: Regular rate and rhythm with S1, S2, no S3. ABDOMEN: Soft, nontender, nondistended. EXTREMITIES: No clubbing, cyanosis or edema. NEUROLOGIC: The patient was awake, alert, following commands. A detailed neuro exam was not performed. LABORATORY DATA: Revealed a new right upper lobe infiltrate consolidation. IMPRESSION: 1. Rnixv-tv-[id number] hypoxemic respiratory failure. 2. Abnormal x-ray compatible with pneumonia covered for both gram-positive and gram-negative organism, the patient recently hospitalized 4 weeks ago. 3. Acute exacerbation of chronic obstructive pulmonary disease. 4. Tobacco dependence. 5. ALLERGY TO PENICILLINS. PLAN: 1. Continue current broad spectrum antibiotics. 2. Oxygen supplementation. 3. DVT prophylaxis. 4. Obtain blood cultures, if temperature is above 100. 5. I will follow clinical course and make further recommendations. 6. Nebulized treatments. I do appreciate the privilege in sharing in the patient's care. SEUN BALES MD DR: MT/marlon JOB#: [id number] / [id number]
[2017-01-13 03:00] VITALS: BP 150/77
[2017-01-13 05:24] LABS: BASO % 0 % (0-3); EOS % 0 % (0-3); HEMATOCRIT 32.5 % (36.0-47.0); HEMOGLOBIN 11.5 g/dL (12.0-15.5); LYMPH # 0.7 x10^3/uL (1.0-4.8); LYMPH % 5 % (24-48); MEAN CORPUSCULAR HEMOGLOBIN 30 pg (25-35); MEAN CORPUSCULAR HGB CONC 35 g/dL (31-37); MEAN CORPUSCULAR VOLUME 84 fL (79-100); MONO % 4 % (0-9); NEUT % 91 % (31-73); PLATELET COUNT 281 x10^3/uL (140-400); RED BLOOD COUNT 3.87 x10^6/uL (3.50-5.40); RED CELL DISTRIBUTION WIDTH 14.9 % (11.5-14.5)
[2017-01-13] MEDS: CEFEPIME HCL 1 GM in IV NORMAL SALINE 50ML 50 ML IV SCH ×3 (05:35→21:34)
[2017-01-13 05:38] LABS: CALCIUM 8.7 mg/dL (8.5-10.1); CREATININE 0.9 mg/dL (0.6-1.0); GFR 61.5
[2017-01-13 07:00] VITALS: BP 130/68
[2017-01-13] MEDS: IPRATRPIUM/ALBUTEROL 0.5/2.5MG 3 ML NEBU. NEB SCH ×2 (07:53→11:28)
[2017-01-13] MEDS: predniSONE 20 MG TABLET PO SCH (08:45)
[2017-01-13] MEDS: LISINOPRIL 20 MG TABLET PO SCH (08:45)
[2017-01-13] MEDS: ASPIRIN ENTERIC COATED 81 MG TABLET.DR. PO SCH (08:45)
[2017-01-13] MEDS: IV NORMAL SALINE 1000ML BAG 1,000 ML IV SCH (09:50)
[2017-01-13 11:00] VITALS: BP 136/64
[2017-01-13] MEDS: BUDESONIDE 0.5 MG/2 ML NEBU. NEB SCH ×2 (11:28→19:27)
--- NOTE | 2017-01-13 12:10 | PDOC ---
PULMONARY PROGRESS NOTES Subjective FEELS BETTER LESS SOA AND COUGH Vitals Vital Signs Date Time Temp Pulse Resp B/P Pulse Ox O2 Delivery O2 Flow Rate FiO2 01/13/17 11:30 Nasal Cannula 4.0 01/13/17 11:00 96.6 75 18 136/64 94 96.6 General: Alert Lungs: Crackles Cardiovascular: S1, S2 Abdomen: Soft, Non-tender Neuro Exam: Alert, Oriented Extremities: No Edema Skin: Warm Labs Laboratory Tests Test 01/12/17 11:04 01/12/17 11:20 01/12/17 11:40 01/13/17 04:15 Sodium Level 132mmol/L (136-145) 141mmol/L (136-145) Potassium Level 3.6mmol/L (3.5-5.1) 4.0mmol/L (3.5-5.1) Chloride Level 94mmol/L (98-107) 104mmol/L (98-107) Carbon Dioxide Level 28mmol/L (21-32) 29mmol/L (21-32) Anion Gap 10 (6-14) 8 (6-14) Blood Urea Nitrogen 16mg/dL (7-20) 19mg/dL (7-20) Creatinine 1.0mg/dL (0.6-1.0) 0.9mg/dL (0.6-1.0) Estimated GFR (Cockcroft-Gault) 54.5 61.5 BUN/Creatinine Ratio 16 (6-20) Glucose Level 97mg/dL (70-99) 138mg/dL (70-99) Calcium Level 9.0mg/dL (8.5-10.1) 8.7mg/dL (8.5-10.1) Total Bilirubin 0.7mg/dL (0.2-1.0) Aspartate Amino Transf (AST/SGOT) 33U/L (15-37) Alanine Aminotransferase (ALT/SGPT) 30U/L (14-59) Alkaline Phosphatase 201U/L (46-116) Total Protein 7.2g/dL (6.4-8.2) Albumin 2.2g/dL (3.4-5.0) Albumin/Globulin Ratio 0.4 (1.0-1.7) White Blood Count 19.5x10^3/uL (4.0-11.0) Red Blood Count 3.93x10^6/uL (3.50-5.40) Hemoglobin 11.2g/dL (12.0-15.5) Hematocrit 32.9% (36.0-47.0) Mean Corpuscular Volume 84fL (79-100) Mean Corpuscular Hemoglobin 29pg (25-35) Mean Corpuscular Hemoglobin Concent 34g/dL (31-37) Red Cell Distribution Width 14.6% (11.5-14.5) Platelet Count 290x10^3/uL (140-400) Neutrophils (%) (Auto) 86% (31-73) Lymphocytes (%) (Auto) 4% (24-48) Monocytes (%) (Auto) 9% (0-9) Eosinophils (%) (Auto) 0% (0-3) Basophils (%) (Auto) 0% (0-3) Neutrophils # (Auto) 16.8x10^3uL (1.8-7.7) Lymphocytes # (Auto) 0.9x10^3/uL (1.0-4.8) Monocytes # (Auto) 1.8x10^3/uL (0.0-1.1) Eosinophils # (Auto) 0.0x10^3/uL (0.0-0.7) Basophils # (Auto) 0.0x10^3/uL (0.0-0.2) Segmented Neutrophils % 83% (35-66) Band Neutrophils % 5% (0-9) Lymphocytes % 3% (24-48) Monocytes % 9% (0-10) Platelet Estimate Adequate (ADEQUATE) Lactic Acid Level 0.9mmol/L (0.4-2.0) Urine Collection Type Unknown Urine Color Deepa Urine Clarity Cloudy Urine pH 6.0 Urine Specific [place] 1.020 Urine Protein 30mg/dL (NEG-TRACE) Urine Glucose (UA) Negativemg/dL (NEG) Urine Ketones (Stick) 15mg/dL (NEG) Urine Blood Negative (NEG) Urine Nitrite Negative (NEG) Urine Bilirubin Small (NEG) Urine Urobilinogen Dipstick 1.0mg/dL (0.2 mg/dL) Urine Leukocyte Esterase Trace (NEG) Urine RBC 0/HPF (0-2) Urine WBC 1-4/HPF (0-4) Urine Squamous Epithelial Cells Mod/LPF Urine Bacteria 0/HPF (0-FEW) Troponin I Quantitative < 0.017ng/mL (0.000-0.055) VA-Ypj-I-Type Natriuretic Peptide 949pg/mL (0-124) Test 01/13/17 04:45 White Blood Count 14.0x10^3/uL (4.0-11.0) Red Blood Count 3.87x10^6/uL (3.50-5.40) Hemoglobin 11.5g/dL (12.0-15.5) Hematocrit 32.5% (36.0-47.0) Mean Corpuscular Volume 84fL (79-100) Mean Corpuscular Hemoglobin 30pg (25-35) Mean Corpuscular Hemoglobin Concent 35g/dL (31-37) Red Cell Distribution Width 14.9% (11.5-14.5) Platelet Count 281x10^3/uL (140-400) Neutrophils (%) (Auto) 91% (31-73) Lymphocytes (%) (Auto) 5% (24-48) Monocytes (%) (Auto) 4% (0-9) Eosinophils (%) (Auto) 0% (0-3) Basophils (%) (Auto) 0% (0-3) Neutrophils # (Auto) 12.7x10^3uL (1.8-7.7) Lymphocytes # (Auto) 0.7x10^3/uL (1.0-4.8) Monocytes # (Auto) 0.5x10^3/uL (0.0-1.1) Eosinophils # (Auto) 0.0x10^3/uL (0.0-0.7) Basophils # (Auto) 0.0x10^3/uL (0.0-0.2) Laboratory Tests Test 01/13/17 04:15 01/13/17 04:45 Sodium Level 141mmol/L (136-145) Potassium Level 4.0mmol/L (3.5-5.1) Chloride Level 104mmol/L (98-107) Carbon Dioxide Level 29mmol/L (21-32) Anion Gap 8 (6-14) Blood Urea Nitrogen 19mg/dL (7-20) Creatinine 0.9mg/dL (0.6-1.0) Estimated GFR (Cockcroft-Gault) 61.5 Glucose Level 138mg/dL (70-99) Calcium Level 8.7mg/dL (8.5-10.1) White Blood Count 14.0x10^3/uL (4.0-11.0) Red Blood Count 3.87x10^6/uL (3.50-5.40) Hemoglobin 11.5g/dL (12.0-15.5) Hematocrit 32.5% (36.0-47.0) Mean Corpuscular Volume 84fL (79-100) Mean Corpuscular Hemoglobin 30pg (25-35) Mean Corpuscular Hemoglobin Concent 35g/dL (31-37) Red Cell Distribution Width 14.9% (11.5-14.5) Platelet Count 281x10^3/uL (140-400) Neutrophils (%) (Auto) 91% (31-73) Lymphocytes (%) (Auto) 5% (24-48) Monocytes (%) (Auto) 4% (0-9) Eosinophils (%) (Auto) 0% (0-3) Basophils (%) (Auto) 0% (0-3) Neutrophils # (Auto) 12.7x10^3uL (1.8-7.7) Lymphocytes # (Auto) 0.7x10^3/uL (1.0-4.8) Monocytes # (Auto) 0.5x10^3/uL (0.0-1.1) Eosinophils # (Auto) 0.0x10^3/uL (0.0-0.7) Basophils # (Auto) 0.0x10^3/uL (0.0-0.2) Medications Active Scripts Medications Dose Route/Sig Days Date Category Doxycycline Hyclate 100 Mg Tablet 100 Mg PO BID 11/29/16 Rx Proair Hfa Inhaler (Albuterol Sulfate) 8.5 Gm Hfa.aer.ad 1 Puff INH PRN Q6HRS PRN 11/25/16 Reported Advair 500-50 Diskus (Fluticasone/Salmeterol) 1 Each Disk.w.dev 1 Puff IH BID 11/25/16 Reported Mirtazapine 30 Mg Tablet 1 Tab PO QHS 11/25/16 Reported Simvastatin 20 Mg Tablet 1 Tab PO QHS 11/25/16 Reported Lisinopril 20 Mg Tablet 1 Tab PO DAILY 11/25/16 Reported Impression . 1. Cucdy-qi-xtbmjjs hypoxemic respiratory failure. 2. Abnormal x-ray compatible with pneumonia covered for both gram-positive and gram-negative organism, the patient recently hospitalized 4 weeks ago. 3. Acute exacerbation of chronic obstructive pulmonary disease. 4. Tobacco dependence. 5. ALLERGY TO PENICILLINS. Plan . CONTINUE THE SAME 1. Continue current broad spectrum antibiotics. 2. Oxygen supplementation. 3. DVT prophylaxis. 4. Obtain blood cultures, if temperature is above 100. 5. I will follow clinical course and make further recommendations. 6. Nebulized treatments. SEUN BALES MD Jan 13, 2017 12:10
[2017-01-13] MEDS ORDERED: VANCOMYCIN 1.25 GM in IV NORMAL SALINE 250ML 250 ML IV SCH (12:30)
[2017-01-13 14:56] VITALS: BP 142/55
--- NOTE | 2017-01-13 15:07 | PDOC ---
PROGRESS NOTES Chief Complaint Chief Complaint cc: cough A/P 1. Xtgvr-ug-janplft hypoxic respiratory failure: Supplemental oxygen 2. Possible Gram positive and gram negative Pneumonia : Vancomycin, cefepime and Levaquin 3. Acute exacerbation of chronic obstructive pulmonary disease.: nebulizations , adi bronchodilators, prednisone 4. Tobacco dependence.: nicotine patch 5. HTN: stable, prn Hydralazine 6. HLP History of Present Illness History of Present Illness sob cough no fever no chest pain Vitals Vitals Vital Signs Date Time Temp Pulse Resp B/P Pulse Ox O2 Delivery O2 Flow Rate FiO2 01/13/17 14:56 96.3 78 16 142/55 95 Nasal Cannula 4.0 96.3 Physical Exam General: Alert, Oriented X3 Heart: Normal S1, Normal S2 Lungs: Crackles Abdomen: Normal bowel sounds, Soft Extremities: No cyanosis Labs LABS Laboratory Tests Test 01/13/17 04:15 01/13/17 04:45 Sodium Level 141mmol/L (136-145) Potassium Level 4.0mmol/L (3.5-5.1) Chloride Level 104mmol/L (98-107) Carbon Dioxide Level 29mmol/L (21-32) Anion Gap 8 (6-14) Blood Urea Nitrogen 19mg/dL (7-20) Creatinine 0.9mg/dL (0.6-1.0) Estimated GFR (Cockcroft-Gault) 61.5 Glucose Level 138mg/dL (70-99) Calcium Level 8.7mg/dL (8.5-10.1) White Blood Count 14.0x10^3/uL (4.0-11.0) Red Blood Count 3.87x10^6/uL (3.50-5.40) Hemoglobin 11.5g/dL (12.0-15.5) Hematocrit 32.5% (36.0-47.0) Mean Corpuscular Volume 84fL (79-100) Mean Corpuscular Hemoglobin 30pg (25-35) Mean Corpuscular Hemoglobin Concent 35g/dL (31-37) Red Cell Distribution Width 14.9% (11.5-14.5) Platelet Count 281x10^3/uL (140-400) Neutrophils (%) (Auto) 91% (31-73) Lymphocytes (%) (Auto) 5% (24-48) Monocytes (%) (Auto) 4% (0-9) Eosinophils (%) (Auto) 0% (0-3) Basophils (%) (Auto) 0% (0-3) Neutrophils # (Auto) 12.7x10^3uL (1.8-7.7) Lymphocytes # (Auto) 0.7x10^3/uL (1.0-4.8) Monocytes # (Auto) 0.5x10^3/uL (0.0-1.1) Eosinophils # (Auto) 0.0x10^3/uL (0.0-0.7) Basophils # (Auto) 0.0x10^3/uL (0.0-0.2) Assessment and Plan Assessmemt and Plan Problems Medical Problems: (1) HCAP (healthcare-associated pneumonia) Status: Acute (2) Hypoxia Status: Acute Problems: Comment Review of Relevant I have reviewed the following items anand (where applicable) has been applied. Labs Laboratory Tests Test 01/12/17 11:04 01/12/17 11:20 01/12/17 11:40 01/13/17 04:15 Sodium Level 132mmol/L (136-145) 141mmol/L (136-145) Potassium Level 3.6mmol/L (3.5-5.1) 4.0mmol/L (3.5-5.1) Chloride Level 94mmol/L (98-107) 104mmol/L (98-107) Carbon Dioxide Level 28mmol/L (21-32) 29mmol/L (21-32) Anion Gap 10 (6-14) 8 (6-14) Blood Urea Nitrogen 16mg/dL (7-20) 19mg/dL (7-20) Creatinine 1.0mg/dL (0.6-1.0) 0.9mg/dL (0.6-1.0) Estimated GFR (Cockcroft-Gault) 54.5 61.5 BUN/Creatinine Ratio 16 (6-20) Glucose Level 97mg/dL (70-99) 138mg/dL (70-99) Calcium Level 9.0mg/dL (8.5-10.1) 8.7mg/dL (8.5-10.1) Total Bilirubin 0.7mg/dL (0.2-1.0) Aspartate Amino Transf (AST/SGOT) 33U/L (15-37) Alanine Aminotransferase (ALT/SGPT) 30U/L (14-59) Alkaline Phosphatase 201U/L (46-116) Total Protein 7.2g/dL (6.4-8.2) Albumin 2.2g/dL (3.4-5.0) Albumin/Globulin Ratio 0.4 (1.0-1.7) White Blood Count 19.5x10^3/uL (4.0-11.0) Red Blood Count 3.93x10^6/uL (3.50-5.40) Hemoglobin 11.2g/dL (12.0-15.5) Hematocrit 32.9% (36.0-47.0) Mean Corpuscular Volume 84fL (79-100) Mean Corpuscular Hemoglobin 29pg (25-35) Mean Corpuscular Hemoglobin Concent 34g/dL (31-37) Red Cell Distribution Width 14.6% (11.5-14.5) Platelet Count 290x10^3/uL (140-400) Neutrophils (%) (Auto) 86% (31-73) Lymphocytes (%) (Auto) 4% (24-48) Monocytes (%) (Auto) 9% (0-9) Eosinophils (%) (Auto) 0% (0-3) Basophils (%) (Auto) 0% (0-3) Neutrophils # (Auto) 16.8x10^3uL (1.8-7.7) Lymphocytes # (Auto) 0.9x10^3/uL (1.0-4.8) Monocytes # (Auto) 1.8x10^3/uL (0.0-1.1) Eosinophils # (Auto) 0.0x10^3/uL (0.0-0.7) Basophils # (Auto) 0.0x10^3/uL (0.0-0.2) Segmented Neutrophils % 83% (35-66) Band Neutrophils % 5% (0-9) Lymphocytes % 3% (24-48) Monocytes % 9% (0-10) Platelet Estimate Adequate (ADEQUATE) Lactic Acid Level 0.9mmol/L (0.4-2.0) Urine Collection Type Unknown Urine Color Deepa Urine Clarity Cloudy Urine pH 6.0 Urine Specific [place] 1.020 Urine Protein 30mg/dL (NEG-TRACE) Urine Glucose (UA) Negativemg/dL (NEG) Urine Ketones (Stick) 15mg/dL (NEG) Urine Blood Negative (NEG) Urine Nitrite Negative (NEG) Urine Bilirubin Small (NEG) Urine Urobilinogen Dipstick 1.0mg/dL (0.2 mg/dL) Urine Leukocyte Esterase Trace (NEG) Urine RBC 0/HPF (0-2) Urine WBC 1-4/HPF (0-4) Urine Squamous Epithelial Cells Mod/LPF Urine Bacteria 0/HPF (0-FEW) Troponin I Quantitative < 0.017ng/mL (0.000-0.055) XG-Tik-U-Type Natriuretic Peptide 949pg/mL (0-124) Test 01/13/17 04:45 White Blood Count 14.0x10^3/uL (4.0-11.0) Red Blood Count 3.87x10^6/uL (3.50-5.40) Hemoglobin 11.5g/dL (12.0-15.5) Hematocrit 32.5% (36.0-47.0) Mean Corpuscular Volume 84fL (79-100) Mean Corpuscular Hemoglobin 30pg (25-35) Mean Corpuscular Hemoglobin Concent 35g/dL (31-37) Red Cell Distribution Width 14.9% (11.5-14.5) Platelet Count 281x10^3/uL (140-400) Neutrophils (%) (Auto) 91% (31-73) Lymphocytes (%) (Auto) 5% (24-48) Monocytes (%) (Auto) 4% (0-9) Eosinophils (%) (Auto) 0% (0-3) Basophils (%) (Auto) 0% (0-3) Neutrophils # (Auto) 12.7x10^3uL (1.8-7.7) Lymphocytes # (Auto) 0.7x10^3/uL (1.0-4.8) Monocytes # (Auto) 0.5x10^3/uL (0.0-1.1) Eosinophils # (Auto) 0.0x10^3/uL (0.0-0.7) Basophils # (Auto) 0.0x10^3/uL (0.0-0.2) Laboratory Tests Test 01/13/17 04:15 01/13/17 04:45 Sodium Level 141mmol/L (136-145) Potassium Level 4.0mmol/L (3.5-5.1) Chloride Level 104mmol/L (98-107) Carbon Dioxide Level 29mmol/L (21-32) Anion Gap 8 (6-14) Blood Urea Nitrogen 19mg/dL (7-20) Creatinine 0.9mg/dL (0.6-1.0) Estimated GFR (Cockcroft-Gault) 61.5 Glucose Level 138mg/dL (70-99) Calcium Level 8.7mg/dL (8.5-10.1) White Blood Count 14.0x10^3/uL (4.0-11.0) Red Blood Count 3.87x10^6/uL (3.50-5.40) Hemoglobin 11.5g/dL (12.0-15.5) Hematocrit 32.5% (36.0-47.0) Mean Corpuscular Volume 84fL (79-100) Mean Corpuscular Hemoglobin 30pg (25-35) Mean Corpuscular Hemoglobin Concent 35g/dL (31-37) Red Cell Distribution Width 14.9% (11.5-14.5) Platelet Count 281x10^3/uL (140-400) Neutrophils (%) (Auto) 91% (31-73) Lymphocytes (%) (Auto) 5% (24-48) Monocytes (%) (Auto) 4% (0-9) Eosinophils (%) (Auto) 0% (0-3) Basophils (%) (Auto) 0% (0-3) Neutrophils # (Auto) 12.7x10^3uL (1.8-7.7) Lymphocytes # (Auto) 0.7x10^3/uL (1.0-4.8) Monocytes # (Auto) 0.5x10^3/uL (0.0-1.1) Eosinophils # (Auto) 0.0x10^3/uL (0.0-0.7) Basophils # (Auto) 0.0x10^3/uL (0.0-0.2) Microbiology 01/12/17 Blood Culture - Preliminary, Resulted NO GROWTH AFTER 1 DAY Medications Current Medications Acetaminophen (Tylenol) 1,000 mg 1X ONCE PO Last administered on 01/12/17 11: 49; Start 01/12/17 at 11:30; Stop 01/12/17 at 11:31; Status DC Albuterol/ Ipratropium 3 ml 3 ml 1X ONCE NEB Last administered on 01/12/17 11 :49; Start 01/12/17 at 11:30; Stop 01/12/17 at 11:31; Status DC Sodium Chloride 500 ml @ 500 mls/hr 1X ONCE IV Last administered on 11:30; Start 01/12/17 at 11:30; Stop 01/12/17 at 12:29; Status DC Aztreonam/Sodium Chloride (Azactam/Iv Sodium Chloride 0.9% 100ml) 100 ml @ 200 mls/hr Q8HRS IV ; Start 01/12/17 at 14:00; Stop 01/12/17 at 14:00; Status DC Vancomycin HCl (Vanco Per Pharmacy) 1 each PRN DAILY PRN MC SEE COMMENTS Last administered on 01/12/17 17:29; Start 01/12/17 at 12:00 Methylprednisolone Sodium Succinate 125 mg 125 mg 1X ONCE IV Last administered on 01/12/17 12:09; Start 01/12/17 at 12:00; Stop 01/12/17 at 12:05 ; Status DC Vancomycin HCl 1.5 gm/Sodium Chloride 500 ml @ 250 mls/hr 1X ONCE IV Last administered on 01/12/17 12:15; Start 01/12/17 at 12:15; Stop 01/12/17 at 14:14 ; Status DC Cefepime HCl 1 gm/ Sodium Chloride 50 ml @ 100 mls/hr ONCE ONCE IV Last administered on 01/12/17 17:17; Start 01/12/17 at 12:30; Stop 01/12/17 at 12:59 ; Status DC Cefepime HCl/ Sodium Chloride (Maxipime/Iv Sodium Chloride 0.9% 50ml) 50 ml @ 100 mls/hr Q8HRS IV Last administered on 01/13/17 13:49; Start 01/12/17 at 14: 00 Ondansetron HCl (Zofran) 4 mg PRN Q8HRS PRN IV NAUSEA/VOMITING; Start 01/12/17 at 14:00; Stop 01/13/17 at 13:59; Status DC Fentanyl Citrate (Fentanyl 2ml Vial) 50 mcg PRN Q2HR PRN IV PAIN; Start at 14:00; Stop 01/13/17 at 13:59; Status DC Acetaminophen (Tylenol) 650 mg PRN Q4HRS PRN PO FEVER; Start 01/12/17 at 14:00 ; Stop 01/13/17 at 13:59; Status DC Albuterol/ Ipratropium (Duoneb) 3 ml RTQID NEB Last administered on 01/13/17 11:28; Start 01/12/17 at 16:00; Stop 01/13/17 at 15:59 Prednisone (Prednisone) 40 mg DAILY PO Last administered on 01/13/17 08:45; Start 01/13/17 at 09:00 Enoxaparin Sodium (Lovenox 40mg Syringe) 40 mg QHS SQ ; Start 01/13/17 at 21:00 Albuterol Sulfate 2.5 mg 2.5 mg PRN Q2HR PRN NEB DYSPNEA; Start 01/12/17 at 16: 30 Vancomycin HCl/ Sodium Chloride (Iv Sodium Chloride 0.9% 250ml) 250 ml @ 167 mls/hr Q24H IV Last administered on 01/13/17 12:49; Start 01/13/17 at 12:30 Vancomycin HCl 1 each 1X ONCE MC ; Start 01/14/17 at 12:00; Stop 01/14/17 at 12: 01 Aspirin (Ecotrin) 81 mg [id number] PO Last administered on 01/13/17 08:45; Start 01/13/17 at 08:00 Lisinopril (Prinivil) 20 mg DAILY PO Last administered on 01/13/17 08:45; Start 01/13/17 at 09:00 Simvastatin (Zocor) 20 mg QHS PO Last administered on 01/12/17 20:46; Start at 21:00 Albuterol Sulfate (Ventolin Neb Soln) 2.5 mg PRN Q6HRS PRN NEB SHORTNESS OF BREATH; Start 01/12/17 at 20:30 Budesonide (Pulmicort) 0.5 mg RTBID NEB Last administered on 01/13/17 11:28; Start 01/13/17 at 08:00 Mirtazapine (Remeron) 30 mg QHS PO Last administered on 01/12/17 20:46; Start 01/12/17 at 21:00 Albuterol/ Ipratropium 3 ml 3 ml RTQID NEB ; Start 01/12/17 at 20:30; Status Cancel Sodium Chloride (Iv Sodium Chloride 0.9% 1000ml Bag) 1,000 ml @ 75 mls/hr [id number] IV Last administered on 01/12/17 20:47; Start 01/12/17 at 20:30 Active Scripts Active Reported Aspir 81 (Aspirin) 81 Mg Tablet.dr 1 Tab PO DAILY Proair Hfa Inhaler (Albuterol Sulfate) 8.5 Gm Hfa.aer.ad 1 Puff INH PRN Q6HRS PRN Advair 500-50 Diskus (Fluticasone/Salmeterol) 1 Each Disk.w.dev 1 Puff IH BID Mirtazapine 30 Mg Tablet 1 Tab PO QHS Simvastatin 20 Mg Tablet 1 Tab PO QHS Lisinopril 20 Mg Tablet 1 Tab PO DAILY Vitals/I & O Vital Sign - Last 24 Hours 01/12/17 01/12/17 01/12/17 01/12/17 16:02 16:06 19:00 19:54 Temp 96.4 96.4 Pulse 79 Resp 22 B/P 140/87 Pulse Ox 93 96 97 O2 Delivery Nasal Cannula Nasal Cannula Nasal Cannula Nasal Cannula O2 Flow Rate 4.0 4.0 4.0 4.0 01/12/17 01/12/17 01/13/17 01/13/17 20:00 22:42 03:00 05:10 Temp 96.6 96.1 96.6 96.1 Pulse 71 72 Resp 22 22 B/P 135/70 150/77 Pulse Ox 96 98 O2 Delivery Nasal Cannula Nasal Cannula Nasal Cannula Nasal Cannula O2 Flow Rate 4.0 4.0 4.0 4.0 01/13/17 01/13/17 01/13/17 01/13/17 07:00 07:54 08:00 08:45 Temp 96.8 96.8 Pulse 66 66 Resp 16 B/P 130/68 130/68 Pulse Ox 94 96 O2 Delivery Nasal Cannula Nasal Cannula Nasal Cannula O2 Flow Rate 4.0 4.0 4.0 01/13/17 01/13/17 01/13/17 11:00 11:30 14:56 Temp 96.6 96.3 96.6 96.3 Pulse 75 78 Resp 18 16 B/P 136/64 142/55 Pulse Ox 94 95 O2 Delivery Nasal Cannula Nasal Cannula Nasal Cannula O2 Flow Rate 4.0 4.0 4.0 Intake and Output 01/12/17 01/12/17 01/13/17 15:00 23:00 07:00 Intake Total 700 ml Output Total 0 ml Balance 700 ml 0 ml SEEMA BLANCHARD MD Jan 13, 2017 15:07
[2017-01-13] MEDS ORDERED: LEVOFLOXACIN PER PHARMACY MC PRN (15:15)
[2017-01-13 19:00] VITALS: BP 153/60
[2017-01-13] MEDS: SIMVASTATIN 20 MG TABLET PO SCH (21:35)
[2017-01-13] MEDS: ENOXAPARIN 40 MG/0.4 ML SYRINGE. SQ SCH (21:35)
[2017-01-13] MEDS: MIRTAZAPINE 15 MG TABLET PO SCH (21:35)
[2017-01-13 22:54] VITALS: BP 150/75
[2017-01-14 03:00] VITALS: BP 157/72
[2017-01-14] MEDS: IV NORMAL SALINE 1000ML BAG 1,000 ML IV SCH ×2 (05:34→20:35)
[2017-01-14] MEDS: CEFEPIME HCL 1 GM in IV NORMAL SALINE 50ML 50 ML IV SCH ×3 (05:34→20:35)
[2017-01-14 07:15] VITALS: BP 151/58
[2017-01-14] MEDS: BUDESONIDE 0.5 MG/2 ML NEBU. NEB SCH ×2 (08:40→19:46)
[2017-01-14] MEDS: ASPIRIN ENTERIC COATED 81 MG TABLET.DR. PO SCH (09:24)
[2017-01-14] MEDS: LISINOPRIL 20 MG TABLET PO SCH (09:24)
[2017-01-14] MEDS: predniSONE 20 MG TABLET PO SCH (09:25)
--- NOTE | 2017-01-14 09:53 | PDOC ---
PULMONARY PROGRESS NOTES Subjective FEELS BETTER LESS SOA AND COUGH Vitals Vital Signs Date Time Temp Pulse Resp B/P Pulse Ox O2 Delivery O2 Flow Rate FiO2 01/14/17 09:24 73 151/58 01/14/17 08:40 98 Nasal Cannula 4.0 01/14/17 07:15 97.5 19 97.5 General: Alert Lungs: Other (decrease bs) Cardiovascular: S1, S2 Abdomen: Soft, Non-tender Neuro Exam: Alert, Oriented Extremities: No Edema Skin: Warm Labs Laboratory Tests Test 01/12/17 11:04 01/12/17 11:20 01/12/17 11:40 01/13/17 04:15 Sodium Level 132mmol/L (136-145) 141mmol/L (136-145) Potassium Level 3.6mmol/L (3.5-5.1) 4.0mmol/L (3.5-5.1) Chloride Level 94mmol/L (98-107) 104mmol/L (98-107) Carbon Dioxide Level 28mmol/L (21-32) 29mmol/L (21-32) Anion Gap 10 (6-14) 8 (6-14) Blood Urea Nitrogen 16mg/dL (7-20) 19mg/dL (7-20) Creatinine 1.0mg/dL (0.6-1.0) 0.9mg/dL (0.6-1.0) Estimated GFR (Cockcroft-Gault) 54.5 61.5 BUN/Creatinine Ratio 16 (6-20) Glucose Level 97mg/dL (70-99) 138mg/dL (70-99) Calcium Level 9.0mg/dL (8.5-10.1) 8.7mg/dL (8.5-10.1) Total Bilirubin 0.7mg/dL (0.2-1.0) Aspartate Amino Transf (AST/SGOT) 33U/L (15-37) Alanine Aminotransferase (ALT/SGPT) 30U/L (14-59) Alkaline Phosphatase 201U/L (46-116) Total Protein 7.2g/dL (6.4-8.2) Albumin 2.2g/dL (3.4-5.0) Albumin/Globulin Ratio 0.4 (1.0-1.7) White Blood Count 19.5x10^3/uL (4.0-11.0) Red Blood Count 3.93x10^6/uL (3.50-5.40) Hemoglobin 11.2g/dL (12.0-15.5) Hematocrit 32.9% (36.0-47.0) Mean Corpuscular Volume 84fL (79-100) Mean Corpuscular Hemoglobin 29pg (25-35) Mean Corpuscular Hemoglobin Concent 34g/dL (31-37) Red Cell Distribution Width 14.6% (11.5-14.5) Platelet Count 290x10^3/uL (140-400) Neutrophils (%) (Auto) 86% (31-73) Lymphocytes (%) (Auto) 4% (24-48) Monocytes (%) (Auto) 9% (0-9) Eosinophils (%) (Auto) 0% (0-3) Basophils (%) (Auto) 0% (0-3) Neutrophils # (Auto) 16.8x10^3uL (1.8-7.7) Lymphocytes # (Auto) 0.9x10^3/uL (1.0-4.8) Monocytes # (Auto) 1.8x10^3/uL (0.0-1.1) Eosinophils # (Auto) 0.0x10^3/uL (0.0-0.7) Basophils # (Auto) 0.0x10^3/uL (0.0-0.2) Segmented Neutrophils % 83% (35-66) Band Neutrophils % 5% (0-9) Lymphocytes % 3% (24-48) Monocytes % 9% (0-10) Platelet Estimate Adequate (ADEQUATE) Lactic Acid Level 0.9mmol/L (0.4-2.0) Urine Collection Type Unknown Urine Color Deepa Urine Clarity Cloudy Urine pH 6.0 Urine Specific [place] 1.020 Urine Protein 30mg/dL (NEG-TRACE) Urine Glucose (UA) Negativemg/dL (NEG) Urine Ketones (Stick) 15mg/dL (NEG) Urine Blood Negative (NEG) Urine Nitrite Negative (NEG) Urine Bilirubin Small (NEG) Urine Urobilinogen Dipstick 1.0mg/dL (0.2 mg/dL) Urine Leukocyte Esterase Trace (NEG) Urine RBC 0/HPF (0-2) Urine WBC 1-4/HPF (0-4) Urine Squamous Epithelial Cells Mod/LPF Urine Bacteria 0/HPF (0-FEW) Troponin I Quantitative < 0.017ng/mL (0.000-0.055) NH-Gxr-N-Type Natriuretic Peptide 949pg/mL (0-124) Test 01/13/17 04:45 White Blood Count 14.0x10^3/uL (4.0-11.0) Red Blood Count 3.87x10^6/uL (3.50-5.40) Hemoglobin 11.5g/dL (12.0-15.5) Hematocrit 32.5% (36.0-47.0) Mean Corpuscular Volume 84fL (79-100) Mean Corpuscular Hemoglobin 30pg (25-35) Mean Corpuscular Hemoglobin Concent 35g/dL (31-37) Red Cell Distribution Width 14.9% (11.5-14.5) Platelet Count 281x10^3/uL (140-400) Neutrophils (%) (Auto) 91% (31-73) Lymphocytes (%) (Auto) 5% (24-48) Monocytes (%) (Auto) 4% (0-9) Eosinophils (%) (Auto) 0% (0-3) Basophils (%) (Auto) 0% (0-3) Neutrophils # (Auto) 12.7x10^3uL (1.8-7.7) Lymphocytes # (Auto) 0.7x10^3/uL (1.0-4.8) Monocytes # (Auto) 0.5x10^3/uL (0.0-1.1) Eosinophils # (Auto) 0.0x10^3/uL (0.0-0.7) Basophils # (Auto) 0.0x10^3/uL (0.0-0.2) Medications Active Scripts Medications Dose Route/Sig Days Date Category Doxycycline Hyclate 100 Mg Tablet 100 Mg PO BID 11/29/16 Rx Proair Hfa Inhaler (Albuterol Sulfate) 8.5 Gm Hfa.aer.ad 1 Puff INH PRN Q6HRS PRN 11/25/16 Reported Advair 500-50 Diskus (Fluticasone/Salmeterol) 1 Each Disk.w.dev 1 Puff IH BID 11/25/16 Reported Mirtazapine 30 Mg Tablet 1 Tab PO QHS 11/25/16 Reported Simvastatin 20 Mg Tablet 1 Tab PO QHS 11/25/16 Reported Lisinopril 20 Mg Tablet 1 Tab PO DAILY 11/25/16 Reported Impression . 1. Wuyqt-gn-yjlgayn hypoxemic respiratory failure. (on home O2 2 litres at rest / 4 litres with activity) 2. Abnormal x-ray compatible with pneumonia covered for both gram-positive and gram-negative organism, the patient recently hospitalized 4 weeks ago.(new RUL infiltrate) 3. Acute exacerbation of chronic obstructive pulmonary disease. 4. Tobacco dependence. 5. ALLERGY TO PENICILLINS. Plan . 1. Continue current broad spectrum antibiotics. 2. Oxygen supplementation. 3. DVT prophylaxis. 4. follow blood/ sputum cultures, 5. I will follow clinical course and make further recommendations. 6. Nebulized treatments. FRANCES CHAPARRO MD January 14, 2017 09:52
[2017-01-14 11:21] VITALS: BP 154/61
--- NOTE | 2017-01-14 11:28 | PDOC ---
PROGRESS NOTES Chief Complaint Chief Complaint cc: cough A/P 1. Jvhbu-fj-idcqgnp hypoxic respiratory failure: Supplemental oxygen 2. Possible Gram positive and gram negative Pneumonia : Vancomycin, cefepime and Levaquin 3. Acute exacerbation of chronic obstructive pulmonary disease.: nebulizations , adi bronchodilators, prednisone 4. Tobacco dependence.: nicotine patch 5. HTN: stable, prn Hydralazine 6. HLP History of Present Illness History of Present Illness sob cough no fever no chest pain Vitals Vitals Vital Signs Date Time Temp Pulse Resp B/P Pulse Ox O2 Delivery O2 Flow Rate FiO2 01/14/17 11:21 97.5 66 19 154/61 95 Nasal Cannula 4.0 97.5 Physical Exam General: Alert, Oriented X3 Heart: Normal S1, Normal S2 Lungs: Wheezing, Other (decrease bs) Abdomen: Normal bowel sounds, Soft Extremities: No cyanosis Assessment and Plan Assessmemt and Plan Problems Medical Problems: (1) HCAP (healthcare-associated pneumonia) Status: Acute (2) Hypoxia Status: Acute Problems: Comment Review of Relevant I have reviewed the following items anand (where applicable) has been applied. Labs Laboratory Tests Test 01/12/17 11:40 01/13/17 04:15 01/13/17 04:45 Urine Collection Type Unknown Urine Color Deepa Urine Clarity Cloudy Urine pH 6.0 Urine Specific [place] 1.020 Urine Protein 30mg/dL (NEG-TRACE) Urine Glucose (UA) Negativemg/dL (NEG) Urine Ketones (Stick) 15mg/dL (NEG) Urine Blood Negative (NEG) Urine Nitrite Negative (NEG) Urine Bilirubin Small (NEG) Urine Urobilinogen Dipstick 1.0mg/dL (0.2 mg/dL) Urine Leukocyte Esterase Trace (NEG) Urine RBC 0/HPF (0-2) Urine WBC 1-4/HPF (0-4) Urine Squamous Epithelial Cells Mod/LPF Urine Bacteria 0/HPF (0-FEW) Troponin I Quantitative < 0.017ng/mL (0.000-0.055) JI-Czu-W-Type Natriuretic Peptide 949pg/mL (0-124) Sodium Level 141mmol/L (136-145) Potassium Level 4.0mmol/L (3.5-5.1) Chloride Level 104mmol/L (98-107) Carbon Dioxide Level 29mmol/L (21-32) Anion Gap 8 (6-14) Blood Urea Nitrogen 19mg/dL (7-20) Creatinine 0.9mg/dL (0.6-1.0) Estimated GFR (Cockcroft-Gault) 61.5 Glucose Level 138mg/dL (70-99) Calcium Level 8.7mg/dL (8.5-10.1) White Blood Count 14.0x10^3/uL (4.0-11.0) Red Blood Count 3.87x10^6/uL (3.50-5.40) Hemoglobin 11.5g/dL (12.0-15.5) Hematocrit 32.5% (36.0-47.0) Mean Corpuscular Volume 84fL (79-100) Mean Corpuscular Hemoglobin 30pg (25-35) Mean Corpuscular Hemoglobin Concent 35g/dL (31-37) Red Cell Distribution Width 14.9% (11.5-14.5) Platelet Count 281x10^3/uL (140-400) Neutrophils (%) (Auto) 91% (31-73) Lymphocytes (%) (Auto) 5% (24-48) Monocytes (%) (Auto) 4% (0-9) Eosinophils (%) (Auto) 0% (0-3) Basophils (%) (Auto) 0% (0-3) Neutrophils # (Auto) 12.7x10^3uL (1.8-7.7) Lymphocytes # (Auto) 0.7x10^3/uL (1.0-4.8) Monocytes # (Auto) 0.5x10^3/uL (0.0-1.1) Eosinophils # (Auto) 0.0x10^3/uL (0.0-0.7) Basophils # (Auto) 0.0x10^3/uL (0.0-0.2) Microbiology 01/12/17 Blood Culture - Preliminary, Resulted NO GROWTH AFTER 1 DAY Medications Current Medications Acetaminophen (Tylenol) 1,000 mg 1X ONCE PO Last administered on 01/12/17 11: 49; Start 01/12/17 at 11:30; Stop 01/12/17 at 11:31; Status DC Albuterol/ Ipratropium 3 ml 3 ml 1X ONCE NEB Last administered on 01/12/17 11 :49; Start 01/12/17 at 11:30; Stop 01/12/17 at 11:31; Status DC Sodium Chloride 500 ml @ 500 mls/hr 1X ONCE IV Last administered on 11:30; Start 01/12/17 at 11:30; Stop 01/12/17 at 12:29; Status DC Aztreonam/Sodium Chloride (Azactam/Iv Sodium Chloride 0.9% 100ml) 100 ml @ 200 mls/hr Q8HRS IV ; Start 01/12/17 at 14:00; Stop 01/12/17 at 14:00; Status DC Vancomycin HCl (Vanco Per Pharmacy) 1 each PRN DAILY PRN MC SEE COMMENTS Last administered on 01/12/17 17:29; Start 01/12/17 at 12:00 Methylprednisolone Sodium Succinate 125 mg 125 mg 1X ONCE IV Last administered on 01/12/17 12:09; Start 01/12/17 at 12:00; Stop 01/12/17 at 12:05 ; Status DC Vancomycin HCl 1.5 gm/Sodium Chloride 500 ml @ 250 mls/hr 1X ONCE IV Last administered on 01/12/17 12:15; Start 01/12/17 at 12:15; Stop 01/12/17 at 14:14 ; Status DC Cefepime HCl 1 gm/ Sodium Chloride 50 ml @ 100 mls/hr ONCE ONCE IV Last administered on 01/12/17 17:17; Start 01/12/17 at 12:30; Stop 01/12/17 at 12:59 ; Status DC Cefepime HCl/ Sodium Chloride (Maxipime/Iv Sodium Chloride 0.9% 50ml) 50 ml @ 100 mls/hr Q8HRS IV Last administered on 01/14/17 05:34; Start 01/12/17 at 14: 00 Ondansetron HCl (Zofran) 4 mg PRN Q8HRS PRN IV NAUSEA/VOMITING; Start 01/12/17 at 14:00; Stop 01/13/17 at 13:59; Status DC Fentanyl Citrate (Fentanyl 2ml Vial) 50 mcg PRN Q2HR PRN IV PAIN; Start at 14:00; Stop 01/13/17 at 13:59; Status DC Acetaminophen (Tylenol) 650 mg PRN Q4HRS PRN PO FEVER; Start 01/12/17 at 14:00 ; Stop 01/13/17 at 13:59; Status DC Albuterol/ Ipratropium (Duoneb) 3 ml RTQID NEB Last administered on 01/13/17 11:28; Start 01/12/17 at 16:00; Stop 01/13/17 at 15:59; Status DC Prednisone (Prednisone) 40 mg DAILY PO Last administered on 01/14/17 09:25; Start 01/13/17 at 09:00 Enoxaparin Sodium (Lovenox 40mg Syringe) 40 mg QHS SQ Last administered on 01/13 21:35; Start 01/13/17 at 21:00 Albuterol Sulfate 2.5 mg 2.5 mg PRN Q2HR PRN NEB [id number]; Start 01/12/17 at 16: 30 Vancomycin HCl/ Sodium Chloride (Iv Sodium Chloride 0.9% 250ml) 250 ml @ 167 mls/hr Q24H IV Last administered on 01/13/17 12:49; Start 01/13/17 at 12:30 Vancomycin HCl 1 each 1X ONCE MC ; Start 01/14/17 at 12:00; Stop 01/14/17 at 12: 01 Aspirin (Ecotrin) 81 mg [id number] PO Last administered on 01/14/17 09:24; Start 01/13/17 at 08:00 Lisinopril (Prinivil) 20 mg DAILY PO Last administered on 01/14/17 09:24; Start 01/13/17 at 09:00 Simvastatin (Zocor) 20 mg QHS PO Last administered on 01/13/17 21:35; Start at 21:00 Albuterol Sulfate (Ventolin Neb Soln) 2.5 mg PRN Q6HRS PRN NEB SHORTNESS OF BREATH; Start 01/12/17 at 20:30 Budesonide (Pulmicort) 0.5 mg RTBID NEB Last administered on 01/14/17 08:40; Start 01/13/17 at 08:00 Mirtazapine (Remeron) 30 mg QHS PO Last administered on 01/13/17 21:35; Start 01/12/17 at 21:00 Albuterol/ Ipratropium 3 ml 3 ml RTQID NEB ; Start 01/12/17 at 20:30; Status Cancel Sodium Chloride (Iv Sodium Chloride 0.9% 1000ml Bag) 1,000 ml @ 75 mls/hr [id number] IV Last administered on 01/14/17 05:34; Start 01/12/17 at 20:30 Levofloxacin/ Dextrose 1 each 1 each PRN DAILY PRN MC SEE COMMENTS; Start 01/13 at 15:15 Levofloxacin/ Dextrose (LEVAQUIN 750mg PREMIX) 150 ml @ 100 mls/hr Q48H IV Last administered on 01/13/17 16:39; Start 01/13/17 at 16:00 Active Scripts Active Reported Aspir 81 (Aspirin) 81 Mg Tablet.dr 1 Tab PO DAILY Proair Hfa Inhaler (Albuterol Sulfate) 8.5 Gm Hfa.aer.ad 1 Puff INH PRN Q6HRS PRN Advair 500-50 Diskus (Fluticasone/Salmeterol) 1 Each Disk.w.dev 1 Puff IH BID Mirtazapine 30 Mg Tablet 1 Tab PO QHS Simvastatin 20 Mg Tablet 1 Tab PO QHS Lisinopril 20 Mg Tablet 1 Tab PO DAILY Vitals/I & O Vital Sign - Last 24 Hours 01/13/17 01/13/17 01/13/17 01/13/17 11:30 14:56 19:00 20:00 Temp 96.3 97.9 96.3 97.9 Pulse 78 76 Resp 16 20 B/P 142/55 153/60 Pulse Ox 95 97 O2 Delivery Nasal Cannula Nasal Cannula Nasal Cannula Nasal Cannula O2 Flow Rate 4.0 4.0 4.0 4.0 01/13/17 01/14/17 01/14/17 01/14/17 22:54 03:00 07:15 08:40 Temp 97.7 97.9 97.5 97.7 97.9 97.5 Pulse 77 75 73 Resp 20 20 19 B/P 150/75 157/72 151/58 Pulse Ox 97 92 93 98 O2 Delivery Nasal Cannula Nasal Cannula Nasal Cannula Nasal Cannula O2 Flow Rate 4.0 4.0 4.0 4.0 01/14/17 01/14/17 09:24 11:21 Temp 97.5 97.5 Pulse 73 66 Resp 19 B/P 151/58 154/61 Pulse Ox 95 O2 Delivery Nasal Cannula O2 Flow Rate 4.0 Intake and Output 01/13/17 01/13/17 01/14/17 15:00 23:00 07:00 Intake Total 660 ml 750 ml Balance 660 ml 750 ml SEEMA BLANCHARD MD January 14, 2017 11:28
[2017-01-14] MEDS: VANCOMYCIN PER PHARMACY MC PRN (12:36)
[2017-01-14] MEDS: VANCOMYCIN 1 GM in IV NORMAL SALINE 250ML 250 ML IV SCH (13:37)
[2017-01-14 15:04] VITALS: BP 161/65
[2017-01-14 19:00] VITALS: BP 164/77
[2017-01-14] MEDS: ALBUTEROL SULFATE 2.5 MG/3 ML NEBU. NEB PRN (19:46)
[2017-01-14] MEDS: ENOXAPARIN 40 MG/0.4 ML SYRINGE. SQ SCH (20:35)
[2017-01-14] MEDS: MIRTAZAPINE 15 MG TABLET PO SCH (20:36)
[2017-01-14] MEDS: SIMVASTATIN 20 MG TABLET PO SCH (20:36)
[2017-01-14 23:00] VITALS: BP 142/69
[2017-01-15] MEDS: VANCOMYCIN 1 GM in IV NORMAL SALINE 250ML 250 ML IV SCH ×2 (00:37→13:17)
[2017-01-15 03:00] VITALS: BP 151/68
[2017-01-15] MEDS: CEFEPIME HCL 1 GM in IV NORMAL SALINE 50ML 50 ML IV SCH ×3 (05:40→20:40)
[2017-01-15 07:00] VITALS: BP 144/90
[2017-01-15] MEDS: BUDESONIDE 0.5 MG/2 ML NEBU. NEB SCH ×2 (07:26→20:02)
[2017-01-15] MEDS: ASPIRIN ENTERIC COATED 81 MG TABLET.DR. PO SCH (08:27)
[2017-01-15] MEDS: LISINOPRIL 20 MG TABLET PO SCH (08:28)
[2017-01-15] MEDS: predniSONE 20 MG TABLET PO SCH (08:28)
[2017-01-15 11:00] VITALS: BP 146/70
[2017-01-15] MEDS: DOCUSATE SODIUM 100 MG CAPSULE. PO SCH ×2 (11:12→20:39)
[2017-01-15] MEDS: MAGNESIUM HYDROXIDE 2,400 MG/30 ML ORAL.SUSP. PO SCH ×2 (11:12→20:38)
[2017-01-15] MEDS: SENNOSIDES/DOCUSATE 8.6/50MG TABLET. PO SCH ×2 (11:12→20:39)
[2017-01-15] MEDS: IV NORMAL SALINE 1000ML BAG 1,000 ML IV SCH (12:01)
[2017-01-15 14:00] VITALS: BP 161/68
--- NOTE | 2017-01-15 14:12 | PDOC ---
PROGRESS NOTES Chief Complaint Chief Complaint cc: cough A/P 1. Hadzb-bn-ieggsnp hypoxic respiratory failure: 2. RUL Possible Gram positive and gram negative Pneumonia : Vancomycin, cefepime and Levaquin 3. Acute exacerbation of chronic obstructive pulmonary disease.: nebulizations , adi bronchodilators, prednisone 4. Tobacco dependence.: nicotine patch 5. HTN: stable, prn Hydralazine 6. HLP 7l. constipation History of Present Illness History of Present Illness sob home o2 2-4L cough no fever no chest pain Vitals Vitals Vital Signs Date Time Temp Pulse Resp B/P Pulse Ox O2 Delivery O2 Flow Rate FiO2 01/15/17 11:00 97.7 82 18 146/70 93 Nasal Cannula 4.0 97.7 Physical Exam General: Alert, Oriented X3 Heart: Normal S1, Normal S2 Lungs: Wheezing (BL MILD ), Other (decrease bs) Abdomen: Normal bowel sounds, Soft Extremities: No cyanosis Review of Systems Review of Systems No fever, chills, chest pain Assessment and Plan Assessmemt and Plan Problems Medical Problems: (1) HCAP (healthcare-associated pneumonia) Status: Acute (2) Hypoxia Status: Acute Problems: Comment Review of Relevant I have reviewed the following items anand (where applicable) has been applied. Labs Laboratory Tests Test 01/14/17 11:45 Vancomycin Level Trough 7.6mcg/mL (10.0-20.0) Vancomycin Last Dose Date 01/13/17 Vancomycin Last Dose Time 1230 Microbiology 01/12/17 Blood Culture - Preliminary, Resulted NO GROWTH AFTER 2 DAYS 01/14/17 Gram Stain - Final, Complete 01/12/17 Urine Culture - Final, Complete 01/12/17 Urine Culture Result 1 (RANDI) - Final, Complete Medications Current Medications Acetaminophen (Tylenol) 1,000 mg 1X ONCE PO Last administered on 01/12/17 11: 49; Start 01/12/17 at 11:30; Stop 01/12/17 at 11:31; Status DC Albuterol/ Ipratropium 3 ml 3 ml 1X ONCE NEB Last administered on 01/12/17 11 :49; Start 01/12/17 at 11:30; Stop 01/12/17 at 11:31; Status DC Sodium Chloride 500 ml @ 500 mls/hr 1X ONCE IV Last administered on 11:30; Start 01/12/17 at 11:30; Stop 01/12/17 at 12:29; Status DC Aztreonam/Sodium Chloride (Azactam/Iv Sodium Chloride 0.9% 100ml) 100 ml @ 200 mls/hr Q8HRS IV ; Start 01/12/17 at 14:00; Stop 01/12/17 at 14:00; Status DC Vancomycin HCl (Vanco Per Pharmacy) 1 each PRN DAILY PRN MC SEE COMMENTS Last administered on 01/14/17 12:36; Start 01/12/17 at 12:00 Methylprednisolone Sodium Succinate 125 mg 125 mg 1X ONCE IV Last administered on 01/12/17 12:09; Start 01/12/17 at 12:00; Stop 01/12/17 at 12:05 ; Status DC Vancomycin HCl 1.5 gm/Sodium Chloride 500 ml @ 250 mls/hr 1X ONCE IV Last administered on 01/12/17 12:15; Start 01/12/17 at 12:15; Stop 01/12/17 at 14:14 ; Status DC Cefepime HCl 1 gm/ Sodium Chloride 50 ml @ 100 mls/hr ONCE ONCE IV Last administered on 01/12/17 17:17; Start 01/12/17 at 12:30; Stop 01/12/17 at 12:59 ; Status DC Cefepime HCl/ Sodium Chloride (Maxipime/Iv Sodium Chloride 0.9% 50ml) 50 ml @ 100 mls/hr Q8HRS IV Last administered on 01/15/17 05:40; Start 01/12/17 at 14: 00 Ondansetron HCl (Zofran) 4 mg PRN Q8HRS PRN IV NAUSEA/VOMITING; Start 01/12/17 at 14:00; Stop 01/13/17 at 13:59; Status DC Fentanyl Citrate (Fentanyl 2ml Vial) 50 mcg PRN Q2HR PRN IV PAIN; Start at 14:00; Stop 01/13/17 at 13:59; Status DC Acetaminophen (Tylenol) 650 mg PRN Q4HRS PRN PO FEVER; Start 01/12/17 at 14:00 ; Stop 01/13/17 at 13:59; Status DC Albuterol/ Ipratropium (Duoneb) 3 ml RTQID NEB Last administered on 01/13/17 11:28; Start 01/12/17 at 16:00; Stop 01/13/17 at 15:59; Status DC Prednisone (Prednisone) 40 mg DAILY PO Last administered on 01/15/17 08:28; Start 01/13/17 at 09:00 Enoxaparin Sodium (Lovenox 40mg Syringe) 40 mg QHS SQ Last administered on 20:35; Start 01/13/17 at 21:00 Albuterol Sulfate 2.5 mg 2.5 mg PRN Q2HR PRN NEB DYSPNEA Last administered on 19:46; Start 01/12/17 at 16:30 Vancomycin HCl/ Sodium Chloride (Iv Sodium Chloride 0.9% 250ml) 250 ml @ 167 mls/hr Q24H IV Last administered on 01/13/17 12:49; Start 01/13/17 at 12:30; Stop 01/14/17 at 12:29; Status DC Vancomycin HCl 1 each 1X ONCE MC ; Start 01/14/17 at 12:00; Stop 01/14/17 at 12: 01; Status DC Aspirin (Ecotrin) 81 mg [id number] PO Last administered on 01/15/17 08:27; Start 01/13/17 at 08:00 Lisinopril (Prinivil) 20 mg DAILY PO Last administered on 01/15/17 08:28; Start 01/13/17 at 09:00 Simvastatin (Zocor) 20 mg QHS PO Last administered on 01/14/17 20:36; Start at 21:00 Albuterol Sulfate (Ventolin Neb Soln) 2.5 mg PRN Q6HRS PRN NEB SHORTNESS OF BREATH; Start 01/12/17 at 20:30 Budesonide (Pulmicort) 0.5 mg RTBID NEB Last administered on 01/15/17 07:26; Start 01/13/17 at 08:00 Mirtazapine (Remeron) 30 mg QHS PO Last administered on 01/14/17 20:36; Start 01/12/17 at 21:00 Albuterol/ Ipratropium 3 ml 3 ml RTQID NEB ; Start 01/12/17 at 20:30; Status Cancel Sodium Chloride (Iv Sodium Chloride 0.9% 1000ml Bag) 1,000 ml @ 75 mls/hr [id number] IV Last administered on 01/15/17 12:01; Start 01/12/17 at 20:30 Levofloxacin/ Dextrose 1 each 1 each PRN DAILY PRN MC SEE COMMENTS; Start 01/13 at 15:15 Levofloxacin/ Dextrose 150 ml @ 100 mls/hr Q48H IV Last administered on 16:39; Start 01/13/17 at 16:00 Vancomycin HCl/ Sodium Chloride (Iv Sodium Chloride 0.9% 250ml) 250 ml @ 250 mls/hr Q12H IV Last administered on 01/15/17 13:17; Start 01/14/17 at 13:00 Vancomycin HCl 1 each 1X ONCE MC ; Start 01/16/17 at 00:30; Stop 01/16/17 at 00: 31 Senna/Docusate Sodium (Senna Plus) 1 tab BID PO Last administered on 01/15/17 11:12; Start 01/15/17 at 11:00 Docusate Sodium (Colace) 100 mg BID PO Last administered on 01/15/17 11:12; Start 01/15/17 at 11:00 Magnesium Hydroxide (Milk Of Magnesia) 2,400 mg BID PO Last administered on 01/15 11:12; Start 01/15/17 at 11:00 Active Scripts Active Reported Aspir 81 (Aspirin) 81 Mg Tablet. 1 Tab PO DAILY Proair Hfa Inhaler (Albuterol Sulfate) 8.5 Gm Hfa.aer.ad 1 Puff INH PRN Q6HRS PRN Advair 500-50 Diskus (Fluticasone/Salmeterol) 1 Each Disk.w.dev 1 Puff IH BID Mirtazapine 30 Mg Tablet 1 Tab PO QHS Simvastatin 20 Mg Tablet 1 Tab PO QHS Lisinopril 20 Mg Tablet 1 Tab PO DAILY Vitals/I & O Vital Sign - Last 24 Hours 01/14/17 01/14/17 01/14/17 01/14/17 15:04 19:00 19:20 19:48 Temp 97.7 97.7 97.7 97.7 Pulse 82 78 Resp 21 16 B/P 161/65 164/77 Pulse Ox 95 94 96 O2 Delivery Nasal Cannula Nasal Cannula Nasal Cannula Nasal Cannula O2 Flow Rate 4.0 4.0 4.0 4.0 01/14/17 01/14/17 01/15/17 01/15/17 19:49 23:00 03:00 07:00 Temp 98.2 98.1 96.3 98.2 98.1 96.3 Pulse 78 86 74 Resp 16 16 17 B/P 142/69 151/68 144/90 Pulse Ox 96 95 95 95 O2 Delivery Nasal Cannula Nasal Cannula Nasal Cannula Nasal Cannula O2 Flow Rate 4.0 4.0 4.0 4.0 01/15/17 01/15/17 01/15/17 01/15/17 07:26 08:00 08:28 11:00 Temp 97.7 97.7 Pulse 86 82 Resp 18 B/P 151/68 146/70 Pulse Ox 94 93 O2 Delivery Nasal Cannula Nasal Cannula Nasal Cannula O2 Flow Rate 3.0 3.0 4.0 Intake and Output 01/14/17 01/14/17 01/15/17 15:00 23:00 07:00 Intake Total 360 ml 1290 ml 780 ml Balance 360 ml 1290 ml 780 ml AME ESPINOZA MD January 15, 2017 14:12
--- NOTE | 2017-01-15 15:10 | PDOC ---
PULMONARY PROGRESS NOTES Subjective FEELS BETTER LESS SOA AND COUGH Vitals Vital Signs Date Time Temp Pulse Resp B/P Pulse Ox O2 Delivery O2 Flow Rate FiO2 01/15/17 11:00 97.7 82 18 146/70 93 Nasal Cannula 4.0 97.7 General: Alert Lungs: Other (decrease bs) Cardiovascular: S1, S2 Abdomen: Soft, Non-tender Neuro Exam: Alert, Oriented Extremities: No Edema Skin: Warm Labs Laboratory Tests Test 01/14/17 11:45 Vancomycin Level Trough 7.6mcg/mL (10.0-20.0) Vancomycin Last Dose Date 01/13/17 Vancomycin Last Dose Time 1230 Medications Active Scripts Medications Dose Route/Sig Days Date Category Doxycycline Hyclate 100 Mg Tablet 100 Mg PO BID 11/29/16 Rx Proair Hfa Inhaler (Albuterol Sulfate) 8.5 Gm Hfa.aer.ad 1 Puff INH PRN Q6HRS PRN 11/25/16 Reported Advair 500-50 Diskus (Fluticasone/Salmeterol) 1 Each Disk.w.dev 1 Puff IH BID 11/25/16 Reported Mirtazapine 30 Mg Tablet 1 Tab PO QHS 11/25/16 Reported Simvastatin 20 Mg Tablet 1 Tab PO QHS 11/25/16 Reported Lisinopril 20 Mg Tablet 1 Tab PO DAILY 11/25/16 Reported Impression . 1. Zdpwl-id-vwyajlf hypoxemic respiratory failure. (on home O2 2 litres at rest / 4 litres with activity) 2. Abnormal x-ray compatible with pneumonia covered for both gram-positive and gram-negative organism, the patient recently hospitalized 4 weeks ago.(new RUL infiltrate) 3. Acute exacerbation of chronic obstructive pulmonary disease. 4. Tobacco dependence. 5. ALLERGY TO PENICILLINS. Plan . 1. Continue current broad spectrum antibiotics. 2. Oxygen supplementation. 3. DVT prophylaxis. 4. follow blood/ sputum cultures, 5. repeat cxr in am, If better, can go home on PO antibiotic. 6. Nebulized treatments. FRANCES CHAPARRO MD January 15, 2017 15:10
[2017-01-15 19:47] VITALS: BP 167/84
[2017-01-15] MEDS: ALBUTEROL SULFATE 2.5 MG/3 ML NEBU. NEB PRN (20:02)
[2017-01-15] MEDS: SIMVASTATIN 20 MG TABLET PO SCH (20:39)
[2017-01-15] MEDS: ENOXAPARIN 40 MG/0.4 ML SYRINGE. SQ SCH (20:39)
[2017-01-15] MEDS: MIRTAZAPINE 15 MG TABLET PO SCH (20:39)
[2017-01-15] MEDS ORDERED: FAMOTIDINE 20 MG TABLET. PO SCH (21:00)
[2017-01-15 23:17] VITALS: BP 172/92
[2017-01-16] MEDS: VANCOMYCIN 1 GM in IV NORMAL SALINE 250ML 250 ML IV SCH (01:14)
[2017-01-16] MEDS: VANCOMYCIN PER PHARMACY MC PRN (01:18)
[2017-01-16 03:55] VITALS: BP 146/79
[2017-01-16 04:26] LABS: BASO % 0 % (0-3); EOS % 1 % (0-3); HEMATOCRIT 31.4 % (36.0-47.0); HEMOGLOBIN 10.8 g/dL (12.0-15.5); LYMPH # 1.8 x10^3/uL (1.0-4.8); LYMPH % 17 % (24-48); MEAN CORPUSCULAR HEMOGLOBIN 30 pg (25-35); MEAN CORPUSCULAR HGB CONC 34 g/dL (31-37); MEAN CORPUSCULAR VOLUME 86 fL (79-100); MONO % 9 % (0-9); NEUT % 72 % (31-73); PLATELET COUNT 294 x10^3/uL (140-400); RED BLOOD COUNT 3.66 x10^6/uL (3.50-5.40); RED CELL DISTRIBUTION WIDTH 14.8 % (11.5-14.5); WHITE BLOOD COUNT 10.4 x10^3/uL (4.0-11.0)
[2017-01-16 04:27] LABS: CALCIUM 8.4 mg/dL (8.5-10.1); CREATININE 0.9 mg/dL (0.6-1.0); GFR 61.5; POTASSIUM 3.9 mmol/L (3.5-5.1)
[2017-01-16] MEDS: CEFEPIME HCL 1 GM in IV NORMAL SALINE 50ML 50 ML IV SCH (05:48)
[2017-01-16 07:00] VITALS: BP 157/61
[2017-01-16] MEDS: ALBUTEROL SULFATE 2.5 MG/3 ML NEBU. NEB PRN (07:41)
[2017-01-16] MEDS: BUDESONIDE 0.5 MG/2 ML NEBU. NEB SCH (07:41)
--- NOTE | 2017-01-16 09:49 | RAD ---
Indication pneumonia. Follow-up. A single view of the chest was obtained and is compared to an examination 4 days earlier. Heart size is unchanged. Infiltrate, compatible with pneumonia, in the right upper lobe persists but appear improved. A new finding is not seen. IMPRESSION: Slight interval improvement. No new finding seen.
[2017-01-16] MEDS: MAGNESIUM HYDROXIDE 2,400 MG/30 ML ORAL.SUSP. PO SCH (10:30)
[2017-01-16] MEDS: ASPIRIN ENTERIC COATED 81 MG TABLET.DR. PO SCH (10:31)
[2017-01-16] MEDS: SENNOSIDES/DOCUSATE 8.6/50MG TABLET. PO SCH (10:31)
[2017-01-16] MEDS: predniSONE 20 MG TABLET PO SCH (10:31)
[2017-01-16] MEDS: DOCUSATE SODIUM 100 MG CAPSULE. PO SCH (10:31)
[2017-01-16] MEDS: LISINOPRIL 20 MG TABLET PO SCH (10:35)
--- NOTE | 2017-01-16 10:58 | PDOC ---
PULMONARY PROGRESS NOTES Subjective BETTER Vitals Vital Signs Date Time Temp Pulse Resp B/P Pulse Ox O2 Delivery O2 Flow Rate FiO2 01/16/17 10:35 85 138/52 01/16/17 08:10 94 Nasal Cannula 2.0 01/16/17 07:00 97.5 97.5 01/15/17 23:17 20 General: Alert, No acute distress Lungs: Other (decrease bs) Cardiovascular: S1, S2 Abdomen: Soft, Non-tender Neuro Exam: Alert, Oriented Extremities: No Edema Skin: Warm Labs Laboratory Tests Test 01/14/17 11:45 01/16/17 00:25 01/16/17 03:30 Vancomycin Level Trough 7.6mcg/mL (10.0-20.0) 15.1mcg/mL (10.0-20.0) Vancomycin Last Dose Date 01/13/17 01/15/17 Vancomycin Last Dose Time 1230 1300 White Blood Count 10.4x10^3/uL (4.0-11.0) Red Blood Count 3.66x10^6/uL (3.50-5.40) Hemoglobin 10.8g/dL (12.0-15.5) Hematocrit 31.4% (36.0-47.0) Mean Corpuscular Volume 86fL (79-100) Mean Corpuscular Hemoglobin 30pg (25-35) Mean Corpuscular Hemoglobin Concent 34g/dL (31-37) Red Cell Distribution Width 14.8% (11.5-14.5) Platelet Count 294x10^3/uL (140-400) Neutrophils (%) (Auto) 72% (31-73) Lymphocytes (%) (Auto) 17% (24-48) Monocytes (%) (Auto) 9% (0-9) Eosinophils (%) (Auto) 1% (0-3) Basophils (%) (Auto) 0% (0-3) Neutrophils # (Auto) 7.5x10^3uL (1.8-7.7) Lymphocytes # (Auto) 1.8x10^3/uL (1.0-4.8) Monocytes # (Auto) 1.0x10^3/uL (0.0-1.1) Eosinophils # (Auto) 0.1x10^3/uL (0.0-0.7) Basophils # (Auto) 0.0x10^3/uL (0.0-0.2) Sodium Level 140mmol/L (136-145) Potassium Level 3.9mmol/L (3.5-5.1) Chloride Level 103mmol/L (98-107) Carbon Dioxide Level 34mmol/L (21-32) Anion Gap 3 (6-14) Blood Urea Nitrogen 18mg/dL (7-20) Creatinine 0.9mg/dL (0.6-1.0) Estimated GFR (Cockcroft-Gault) 61.5 Glucose Level 88mg/dL (70-99) Calcium Level 8.4mg/dL (8.5-10.1) Laboratory Tests Test 01/16/17 00:25 01/16/17 03:30 Vancomycin Level Trough 15.1mcg/mL (10.0-20.0) Vancomycin Last Dose Date 01/15/17 Vancomycin Last Dose Time 1300 White Blood Count 10.4x10^3/uL (4.0-11.0) Red Blood Count 3.66x10^6/uL (3.50-5.40) Hemoglobin 10.8g/dL (12.0-15.5) Hematocrit 31.4% (36.0-47.0) Mean Corpuscular Volume 86fL (79-100) Mean Corpuscular Hemoglobin 30pg (25-35) Mean Corpuscular Hemoglobin Concent 34g/dL (31-37) Red Cell Distribution Width 14.8% (11.5-14.5) Platelet Count 294x10^3/uL (140-400) Neutrophils (%) (Auto) 72% (31-73) Lymphocytes (%) (Auto) 17% (24-48) Monocytes (%) (Auto) 9% (0-9) Eosinophils (%) (Auto) 1% (0-3) Basophils (%) (Auto) 0% (0-3) Neutrophils # (Auto) 7.5x10^3uL (1.8-7.7) Lymphocytes # (Auto) 1.8x10^3/uL (1.0-4.8) Monocytes # (Auto) 1.0x10^3/uL (0.0-1.1) Eosinophils # (Auto) 0.1x10^3/uL (0.0-0.7) Basophils # (Auto) 0.0x10^3/uL (0.0-0.2) Sodium Level 140mmol/L (136-145) Potassium Level 3.9mmol/L (3.5-5.1) Chloride Level 103mmol/L (98-107) Carbon Dioxide Level 34mmol/L (21-32) Anion Gap 3 (6-14) Blood Urea Nitrogen 18mg/dL (7-20) Creatinine 0.9mg/dL (0.6-1.0) Estimated GFR (Cockcroft-Gault) 61.5 Glucose Level 88mg/dL (70-99) Calcium Level 8.4mg/dL (8.5-10.1) Medications Active Scripts Medications Dose Route/Sig Days Date Category Doxycycline Hyclate 100 Mg Tablet 100 Mg PO BID 11/29/16 Rx Proair Hfa Inhaler (Albuterol Sulfate) 8.5 Gm Hfa.aer.ad 1 Puff INH PRN Q6HRS PRN 11/25/16 Reported Advair 500-50 Diskus (Fluticasone/Salmeterol) 1 Each Disk.w.dev 1 Puff IH BID 11/25/16 Reported Mirtazapine 30 Mg Tablet 1 Tab PO QHS 11/25/16 Reported Simvastatin 20 Mg Tablet 1 Tab PO QHS 11/25/16 Reported Lisinopril 20 Mg Tablet 1 Tab PO DAILY 11/25/16 Reported Impression . 1. Opsjw-hc-vwtboxd hypoxemic respiratory failure. (on home O2, 2 litres at rest/ 4 litres with activity) 2. Abnormal x-ray compatible with pneumonia RUL ,covered for both gram- positive and gram-negative organism, the patient recently hospitalized 4 weeks ago.(new RUL infiltrate) 3. Acute exacerbation of chronic obstructive pulmonary disease. 4. Tobacco dependence. 5. ALLERGY TO PENICILLINS. Plan . 1. Change to PO antibiotics. 2. Oxygen supplementation. 3. DVT prophylaxis. 4. follow blood/ sputum cultures, 5. repeat cxr today better, can go home on PO antibiotic. 6. Nebulized treatments. FRANCES CHAPARRO MD January 16, 2017 10:58
[2017-01-16 11:00] VITALS: BP 149/63
--- NOTE | 2017-01-16 13:18 | PDOC3 ---
Discharge Summary [facility] Date of Admission: Jan 12, 2017 Discharge Date: January 16, 2017 Admitting Diagnosis 1. Iiceg-wo-tpbnchx hypoxic respiratory failure: 2. RUL Possible Gram positive and gram negative Pneumonia : Vancomycin, cefepime and Levaquin 3. Acute exacerbation of chronic obstructive pulmonary disease.: nebulizations , adi bronchodilators, prednisone 4. Tobacco dependence.: nicotine patch 5. HTN: stable, prn Hydralazine 6. HLP 7l. constipation Problems: Final Diagnosis CONSULTS pulm Brief Hospital Course Ms. Loja is a 71 old F, smoking, copd, on home o2 2-4L 08/04. Pt was in hosp 1 month ago for PNA. pt comes for sob, cough with sputum. CXR showed RUQ PNA, treated with levaquin, cefepime and vanco and feels better, now on O2 2L. REPEated CXR better. dc home with vantin and doxy for 5days, taper steroid, asked pt to stop smoking. dc time 40min General: Alert, Oriented X3 Heart: Normal S1, Normal S2 Lungs: Wheezing (BL MILD ), Other (decrease bs) Abdomen: Normal bowel sounds, Soft Extremities: No cyanosis Patient History: Problems: Disposition home CONDITION AT DISCHARGE: Improved Diet regular Scheduled Aspirin (Aspir 81) 1 TAB PO DAILY (Reported) Fluticasone/Salmeterol (Advair 500-50 Diskus) 1 PUFF IH BID (Reported) Lisinopril (Lisinopril) 1 TAB PO DAILY (Reported) Mirtazapine (Mirtazapine) 1 TAB PO QHS (Reported) Simvastatin (Simvastatin) 1 TAB PO QHS (Reported) Scheduled PRN Albuterol Sulfate (Proair Hfa Inhaler) 1 PUFF INH PRN Q6HRS PRN PRN SHORTNESS OF BREATH (Reported) Follow Up pcp in 2 weeks AME ESPINOZA MD January 16, 2017 13:18
[2017-01-16] MEDS ORDERED: CEFP100T PO (13:20)
[2017-01-16] MEDS ORDERED: DOCU-27 PO (13:20)
[2017-01-16] MEDS ORDERED: PRED20TA PO (13:20)
[2017-01-16] MEDS ORDERED: FAMO20TA5 PO (13:20)
[2017-01-16] MEDS ORDERED: DOXY100T PO (13:20)
[2017-01-16] MEDS ORDERED: CEFPODOXIME PROXETIL 100 MG TABLET. PO SCH (21:00)
[2017-01-16] MEDS ORDERED: DOXYCYCLINE HYCLATE 100 MG TABLET PO SCH (21:00)
[2017-01-17] MEDS ORDERED: CEFP100T PO (16:12)
== END 2017-01-16 15:15 | disposition home or self-care (01) | DRG 177 ==
LOC: ER 10:42 → 5 NORTH 11:55
PROVIDERS: ADMIT Internal Medicine; ATTEND Internal Medicine
DX: J15.6 Pneumonia due to other Gram-negative bacteria (principal); J96.21 Acute and chronic respiratory failure with hypoxia; J44.1 Chronic obstructive pulmonary disease with (acute) exacerbation; J44.0 Chronic obstructive pulmonary disease with (acute) lower respiratory infection; F32.9 Major depressive disorder, single episode, unspecified; F17.200 Nicotine dependence, unspecified, uncomplicated; E78.5 Hyperlipidemia, unspecified; I10 Essential (primary) hypertension; K59.00 Constipation, unspecified; E78.00 Pure hypercholesterolemia, unspecified; E11.9 Type 2 diabetes mellitus without complications; Y95 Nosocomial condition; Z90.710 Acquired absence of both cervix and uterus; Z88.0 Allergy status to penicillin; Z83.3 Family history of diabetes mellitus; Z99.81 Dependence on supplemental oxygen
CPT/HCPCS: 36415; 71010; 80048; 80053; 80202; 81001; 83605; 83880; 84484; 85007; 85027; 87040; 87070; 87086; 87205; 93005; 94250; 94640; 94760; 96361; 96374; 96375; J0692; J1650; J1956; J2930; J3370; J7030; J7040; J7050; J7512; J7620; 99285-25

== ENCOUNTER → 2017-03-01 | Outpatient (CLI) | payer OTHER ==
[~2017-03-01] MED LIST changes: +ASPI-482 PO; +CEFP100T PO; +DOCU-109 PO; +FAMO20TA5 PO; +IOHEXOL 300 MG/ML 75 ML VIAL IV ONE; +PRED20TA PO
--- NOTE | 2017-03-01 09:06 | RAD ---
CT of the chest with contrast, 03/01/2017: History: Pneumonia, follow-up lung nodules Multidetector CT imaging was performed following an IV bolus injection of iodinated contrast material. Multiplanar reconstructions were produced. There is moderate calcific plaquing of the thoracic aorta without evidence of aneurysm. There are moderate scattered coronary calcifications. Small mediastinal lymph nodes are seen without evidence of pathologic enlargement. No hilar adenopathy is evident. There is a small calcification at the left hilum. There are several pulmonary calcifications bilaterally compatible with old granulomatous disease. A small cyst is again noted in the left kidney. There are emphysematous changes in the lungs. There are scattered linear parenchymal scars. There are cluster of 2 small nodules in the lateral aspect of the right lower as best seen on axial images 238 through 247 of series 6. The largest of these nodules measures 5 mm. Allowing for technical differences (thinner reconstructions were performed today), these nodules are unchanged. There is an elongated parenchymal opacity in the posterior/inferior lingular region on the left which is unchanged. This probably represents chronic atelectasis and/or scarring. There is a new moderate right suprahilar opacity in the upper lobe which is predominantly groundglass in nature with lesser solid components. This lies in the area where presumed pneumonia was seen on 01/12/2017 radiographs. This opacity has diminished radiographically in the interval, also compatible with pneumonia. There is a 9 mm spiculated opacity in the superior aspect of the right middle lobe abutting the minor fissure as best seen on axial image 152 of series #6. This was not evident on the previous study. There are moderate scattered spurs in the spine. IMPRESSION: 1. Moderate emphysema with parenchymal scarring. 2. An unchanged elongated density in the inferior lingular region on the left probably represents chronic atelectasis and/or scarring. 3. Stable small cluster of nodules in the right lower lung. 4. New right upper lobe suprahilar opacity probably representing resolving pneumonia. 5. New small right middle lobe opacity which may may also be inflammatory. A neoplastic etiology cannot be excluded. 6. Calcific plaquing of aorta and coronary arteries. 7. CT follow-up of these bilateral parenchymal opacities is suggested. PQRS Compliance Statement: One or more of the following individualized dose reduction techniques were utilized for this examination: 1. Automated exposure control 2. Adjustment of the mA and/or kV according to patient size 3. Use of iterative reconstruction technique
== END ==
LOC: CT 07:21
PROVIDERS: ATTEND Family Medicine
DX: R91.8 Other nonspecific abnormal finding of lung field (principal); J43.9 Emphysema, unspecified; J98.4 Other disorders of lung
CPT/HCPCS: 71260; Q9967

== ENCOUNTER 2017-07-08 09:30 | Emergency (ER) | payer OTHER ==
[~2017-07-08] VITALS: Ht 160 cm; Wt 82.1 kg
[~2017-07-08 09:30] MED LIST changes: -IOHEXOL 300 MG/ML 75 ML VIAL IV ONE
[2017-07-08] MEDS ORDERED: IV NORMAL SALINE 1000ML BAG 1,000 ML IV SCH (09:55)
[2017-07-08] MEDS ORDERED: IPRATRPIUM/ALBUTEROL 0.5/2.5MG 3 ML NEBU. NEB ONE (10:00)
[2017-07-08] MEDS ORDERED: ALBUTEROL SULFATE 2.5 MG/3 ML NEBU. CONT NEB ONE (10:00)
[2017-07-08] MEDS ORDERED: methylPREDNISolone SOD SUCC PF 125 MG/2 ML VIAL. IV ONE (10:00)
[2017-07-08] MEDS ORDERED: 0.9 % SODIUM CHLORIDE 10 ML DISP.SYRIN. IV ONE (10:00)
[2017-07-08] MEDS ORDERED: HYDROmorphone 2 MG/ML VIAL IV/SQ PRN (10:00)
[2017-07-08 10:07] LABS: BILIRUBIN,URINE NEGATIVE (NEG); GLUCOSE,URINE NEGATIVE (NEG); NITRITE,URINE NEGATIVE (NEG); PH,URINE 7.5; PROTEIN,URINE NEGATIVE (NEG-TRACE); UROBILINOGEN,URINE 0.2 mg/dL (0.2 mg/dL)
[2017-07-08 10:10] LABS: BACTERIA,URINE 0 /HPF (0-FEW); RBC,URINE 0 /HPF (0-2); SQUAMOUS EPITHELIAL CELL,UR MOD /LPF
--- NOTE | 2017-07-08 10:12 | PHYS DOC ---
Past Medical History Past Medical History: COPD, Depression, High Cholesterol, Hypertension Past Surgical History: Hysterectomy, Tonsillectomy Alcohol Use: None Drug Use: None Adult General Chief Complaint Chief Complaint: FLANK PAIN HPI HPI This patient is a pleasant 71-year-old female with history of COPD, hyperlipidemia, hypertension who presents with back pain began 4 days ago with progressive urinary urgency, frequency and dysuria. She woke this morning with increasing lower suprapubic pain with inability to urinate. She denies any fevers but has had some chills subjectively with nausea but no vomiting no diarrhea. Patient denies any trauma or weakness and her lower legs. She denies any bowel or bladder incontinence. She is normally on 2 L at rest on oxygen and 4 L with exertion. She denies any increasing or change in shortness of breath which is chronic for her. She denies any change in medications, weight gain or peripheral swelling her lower legs. She denies any prior history of trauma to her legs prior surgeries or prior PE risk factors. Her pain is moderate at this time worse with range of motion and urination. She describes 8 of 10 Irving Bryant PCP Review of Systems Review of Systems Constitutional: sHe has had subjective fevers and chills. Eyes: Denies change in visual acuity, redness, or eye pain [] HENT: Denies nasal congestion or sore throat [] Respiratory: Denies cough or shortness of breath [] Cardiovascular: No additional information not addressed in HPI [] GI: Has had diffuse lower abdominal pain with nausea no vomiting no diarrhea no loose stools she has had increased frequency urgency and dysuria without hematuria [] Musculoskeletal: Does have chronic lower back pain that is worsened. Integument: Denies rash or skin lesions [] Neurologic: Denies headache, focal weakness or sensory changes [] Endocrine: Denies polyuria or polydipsia [] Current Medications Current Medications Current Medications Medications (Trade) Dose Ordered Sig/Lance Start Time Stop Time Status Last Admin Dose Admin Albuterol Sulfate (Ventolin Neb Soln) 10 mg 1X ONCE 07/08/17 10:00 07/08/17 10:11 DC 07/08/17 10:49 10 MG Albuterol/ Ipratropium (Duoneb) 3 ml 1X ONCE 07/08/17 10:00 07/08/17 10:11 DC 07/08/17 10:27 3 ML Hydromorphone HCl (Dilaudid) 1 mg PRN Q15MIN PRN 07/08/17 10:00 07/09/17 09:59 07/08/17 10:37 1 MG Lorazepam (Ativan) 1 mg 1X ONCE 07/08/17 10:00 07/08/17 10:11 DC 07/08/17 10:35 1 MG Methylprednisolone Sodium Succinate (SOLU-Medrol 125MG VIAL) 125 mg 1X ONCE 07/08/17 10:00 07/08/17 10:11 DC 07/08/17 10:34 125 MG Sodium Chloride 1,000 ml @ 1,000 mls/hr Q1H 07/08/17 09:55 07/08/17 10:54 DC 07/08/17 10:32 1,000 MLS/HR Sodium Chloride (Normal Saline Flush) 10 ml 1X ONCE 07/08/17 10:00 07/08/17 10:11 DC Allergies Allergies Allergies Coded Allergies Type Severity Reaction Last Updated Verified Penicillins Allergy Intermediate RASH 07/08/17 Yes Physical Exam Physical Exam Vital signs on the chart patient noted to be hypertensive, tachypneic and tachycardic and borderline hypoxic Constitutional: Well developed, well nourished, she obviously uncomfortable but nontoxic in appearance HENT: Normocephalic, atraumatic, bilateral external ears normal, dry mucous membranes no oral exudates, nose normal. [] Eyes: PERRLA, EOMI, conjunctiva normal, no discharge. [] Neck: Normal range of motion, no tenderness, supple, no stridor. [] Cardiovascular:Heart rate regular rhythm, no murmur [] Lungs & Thorax: Patient has decreased breath sounds in all lung harding with wheezes rhonchi at the bases without retractions or accessory muscle usage Abdomen: Bowel sounds normal, soft, some tenderness to palpation in the suprapubic region with no masses no guarding rebound or organomegaly Skin: Warm, dry, no erythema, no rash. [] Back: Patient with some mild CVA tenderness to the right Extremities: No tenderness, no cyanosis, no clubbing, ROM intact, no edema. [] Neurologic: Alert and oriented X 3, normal motor function, normal sensory function, no focal deficits noted. [] Psychologic: Affect normal, judgement normal, mood normal. [] Current Patient Data Vital Signs Vital Signs Date Time Temp Pulse Resp B/P (MAP) Pulse Ox O2 Delivery O2 Flow Rate FiO2 07/08/17 10:52 Nasal Cannula 2.0 07/08/17 10:37 30 95 07/08/17 09:43 97.7 76 166/72 (103) 97.7 Lab Values Laboratory Tests Test 07/08/17 09:40 07/08/17 10:10 Urine Color Yellow Urine Clarity Clear Urine pH 7.5 Urine Specific Conception 1.015 Urine Protein Negative mg/dL (NEG-TRACE) Urine Glucose (UA) Negative mg/dL (NEG) Urine Ketones (Stick) Negative mg/dL (NEG) Urine Blood Negative (NEG) Urine Nitrite Negative (NEG) Urine Bilirubin Negative (NEG) Urine Urobilinogen Dipstick 0.2 mg/dL (0.2 mg/dL) Urine Leukocyte Esterase Trace (NEG) Urine RBC 0 /HPF (0-2) Urine WBC 1-4 /HPF (0-4) Urine Squamous Epithelial Cells Mod /LPF Urine Bacteria 0 /HPF (0-FEW) White Blood Count 8.0 x10^3/uL (4.0-11.0) Red Blood Count 4.58 x10^6/uL (3.50-5.40) Hemoglobin 13.3 g/dL (12.0-15.5) Hematocrit 39.8 % (36.0-47.0) Mean Corpuscular Volume 87 fL (79-100) Mean Corpuscular Hemoglobin 29 pg (25-35) Mean Corpuscular Hemoglobin Concent 33 g/dL (31-37) Red Cell Distribution Width 14.0 % (11.5-14.5) Platelet Count 210 x10^3/uL (140-400) Neutrophils (%) (Auto) 67 % (31-73) Lymphocytes (%) (Auto) 19 % (24-48) L Monocytes (%) (Auto) 11 % (0-9) H Eosinophils (%) (Auto) 3 % (0-3) Basophils (%) (Auto) 1 % (0-3) Neutrophils # (Auto) 5.3 x10^3uL (1.8-7.7) Lymphocytes # (Auto) 1.5 x10^3/uL (1.0-4.8) Monocytes # (Auto) 0.8 x10^3/uL (0.0-1.1) Eosinophils # (Auto) 0.3 x10^3/uL (0.0-0.7) Basophils # (Auto) 0.0 x10^3/uL (0.0-0.2) Sodium Level 137 mmol/L (136-145) Potassium Level 4.5 mmol/L (3.5-5.1) Chloride Level 98 mmol/L (98-107) Carbon Dioxide Level 30 mmol/L (21-32) Anion Gap 9 (6-14) Blood Urea Nitrogen 15 mg/dL (7-20) Creatinine 0.9 mg/dL (0.6-1.0) Estimated GFR (Cockcroft-Gault) 61.5 Glucose Level 87 mg/dL (70-99) Lactic Acid Level 1.0 mmol/L (0.4-2.0) Calcium Level 8.9 mg/dL (8.5-10.1) Total Bilirubin 0.4 mg/dL (0.2-1.0) Direct Bilirubin 0.1 mg/dL (0.0-0.2) Aspartate Amino Transferase (AST) 17 U/L (15-37) Alanine Aminotransferase (ALT) 18 U/L (14-59) Alkaline Phosphatase 93 U/L (46-116) Creatine Kinase 138 U/L (26-192) Creatine Kinase MB (Mass) 1.5 ng/mL (0.0-3.6) Creatine Kinase MB Relative Index 1.1 % (0-4) Troponin I Quantitative < 0.017 ng/mL (0.000-0.055) SQ-Ebm-B-Type Natriuretic Peptide 185 pg/mL (0-124) H Total Protein 6.9 g/dL (6.4-8.2) Albumin 3.5 g/dL (3.4-5.0) Lipase 149 U/L (73-393) Laboratory Tests 07/08/17 10:10 Laboratory Tests 07/08/17 10:10 EKG EKG []Itchy timed 10:16 AM read by me there is a PE every QRS this is normal sinus rhythm heart rate is 70 there is a normal NV interval 176 normal QRS width of 86 QTC is normal at 435 patient has some T-wave inversion in V1 and V2 which may be a normal variant but there is no clear ST segment or T-wave inversions consistent with acute coronary ischemia. Radiology/Procedures Radiology/Procedures [] IMAGING REPORT Signed PATIENT: NOHEMY SCHREIBER ACCOUNT: [id number] : 1945 LOCATION: ER AGE: 71 SEX: F EXAM STATUS: REG ER ORD. PHYSICIAN: HANNAH MACHADO MD REASON: ab pain with urinary retention. NOT READY FOR CT 1005 RN AND LABS IN ROOM PROCEDURE: CT ABDOMEN PELVIS WO CONTRAST INDICATION: Right flank pain COMPARISON: None. TECHNIQUE: Axial CT images were obtained through the abdomen and pelvis without intravenous contrast. Limited assessment solid organ structures and vasculature secondary to lack of intravenous contrast. FINDINGS: 6-7 mm nodule at the right lower lung appears similar to chest CT from December 03, 2016. Severe calcific atherosclerosis. No intrahepatic bile duct dilation. No definite peripancreatic edema. Probable cystic lesion left kidney, 34 mm. No hydronephrosis. Urinary bladder is partially distended. No dilated loops of bowel to suggest obstruction. Appendix not well seen. Degenerative changes of spine. IMPRESSION: 1. No hydronephrosis or definite radiopaque obstructive ureter stone. 2. 6-7 mm right lower lung pulmonary nodule. A follow-up will be needed on a nonemergent basis to ensure no growth.. The patient's previously seen right middle lobe opacity can be reevaluated at that time as well. 3. Severe calcific atherosclerosis. PQRS Compliance Statement: One or more of the following individualized dose reduction techniques were utilized for this examination: 1. Automated exposure control 2. Adjustment of the mA and/or kV according to patient size 3. Use of iterative reconstruction technique DICTATED and SIGNED BY: RIVER LOZANO MD DATE: 07/08/17 1059 CC: HANNAH MACHADO MD; NAM SCHAFER ~ [address] [place] [address] IMAGING REPORT Signed PATIENT: NOHEMY SCHREIBER ACCOUNT: [id number] : 1945 LOCATION: ER AGE: 71 SEX: F EXAM STATUS: REG ER ORD. PHYSICIAN: HANNAH MACHADO MD REASON: sob PROCEDURE: PORTABLE CHEST 1V Portable chest, 07/08/2017: History: Shortness of breath The diaphragm was not completely included on this exam. The patient is rotated to the left. The heart appears to be mildly enlarged. There is calcific plaquing of the aorta. The pulmonary vascularity is within normal limits. There are a few scattered parenchymal scars. No definite infiltrate is seen. No pleural fluid is evident. IMPRESSION: 1. Mild cardiomegaly and aortic atherosclerosis. 2. No acute abnormality is detected. DICTATED and SIGNED BY: PATRICIO OH MD DATE: 07/08/17 1051 CC: HANNAH MACHADO MD; NAM SCHAFER ~ Course & Med Decision Making Course & Med Decision Making Pertinent Labs and Imaging studies reviewed. (See chart for details) this is a pleasant 71-year-old female that presents with abdominal pain that began as back pain that she is worried is associated with a UTI and possible pyelonephritis. In the beginning part of the evaluation is noted that the patient was mildly tachypnea and mildly hypoxic which is chronic for her given her prior COPD for which she is on oxygen at home. Patient was given duo nebs here in the emergency department and some Solu-Medrol 2 treat her symptoms of COPD she is a 44 markedly improved and the time is now 10:30 AM. Time is now 11:30 AM patient feels markedly improved and is finishing up her one -hour of duo nebs lungs are clear saturations on a percent on the nonrebreather mask. Patient's CT scan is reviewed reviewed by me demonstrates only pulmonary nodule that will require follow-up in the future. This information was passed along to the and the patient at bedside. Patient and I reviewed urinalysis which was clear for signs of infection, CBC which is normal, CMP which is normal, and a negative troponin and negative proBNP. Patient asked to quit smoking given her history and her continued challenges with COPD. Patient also asked to follow-up with her primary care physician for continued management of her back pain which in my estimation is not significant surgical issue at the time. CRAFTI differential was inserted and essentially ruled out by this evaluation today. Cauda Equina Renal Stone AAA ruptured Fracture Tumor (TB, metastatic disease) Infection UTI, pyelonephritis, epidural abscess. Patient's spine symptoms have stabilized while they have been evaluated in the department and are appropriate for outpatient work up. No evidence of cauda equina, cord compression, infiltrative, or infectious etiology. Impression: Back pain unclear etiology possible muscular skeletal, COPD exacerbation, hypertension, dysuria. Dragon Disclaimer Dragon Disclaimer This electronic medical record was generated, in whole or in part, using a voice recognition dictation system. Departure Departure Impression: Primary Impression: COPD exacerbation Additional Impressions: Back pain Dysuria Abdominal pain Disposition: 01 HOME, SELF-CARE Condition: IMPROVED Referrals: NAM SCHAFER (PCP) Patient Instructions: Abdominal Pain, Back Pain, Adult, Chronic Obstructive Pulmonary Disease, Dysuria Additional Instructions: My discharge plan Follow up: In addition patient is asked to followup with their primary doctor, within a week for followup examination and to address patient's ongoing medical conditions. . Patient is advised that in the Emergency Department primary complaints are addressed and only in light of known signs and symptoms. Patient should return immediately to the emergency department if new signs and symptoms develop or patient's condition worsens in any way. At time of discharge patient was in stable condition and had verbalized understanding of the discharge instructions. Although there is no obvious evidence of appendicitis or intra-abdominal catastrophe at this time requiring surgical intervention or immediate medical management you could still develop these issues in the future. I would ask that you return immediately for any increasing symptoms question concerns. Scripts Prednisone (PREDNISONE) 50 Mg Tablet 1 TAB PO DAILY, #5 TAB Prov: HANNAH MACHADO MD 07/08/17 Albuterol Sulfate (PROAIR HFA INHALER) 8.5 Gm Hfa.aer.ad 1 PUFF INH PRN Q6HRS Y for SHORTNESS OF BREATH for 5 Days, INHALER 0 Refills Prov: HANNAH MACHADO MD 07/08/17 Ibuprofen (IBUPROFEN) 400 Mg Tablet 400 MG PO PRN Q6HRS Y for INFLAMMATION for 10 Days, TAB Prov: HANNAH MACHADO MD 07/08/17 Hydrocodone Bit/Acetaminophen (HYDROCODONE-APAP 5-325 ) 1 Each Tablet 1-2 TAB PO PRN Q6HRS Y for PAIN for 5 Days, #10 TAB 0 Refills Prov: HANNAH MACHADO MD 07/08/17 Problem Qualifiers HANNAH MACHADO MD Jul 08, 2017 10:12
[2017-07-08 10:19] LABS: BASO % 1 % (0-3); EOS % 3 % (0-3); HEMATOCRIT 39.8 % (36.0-47.0); HEMOGLOBIN 13.3 g/dL (12.0-15.5); LYMPH # 1.5 x10^3/uL (1.0-4.8); LYMPH % 19 % (24-48); MEAN CORPUSCULAR HEMOGLOBIN 29 pg (25-35); MEAN CORPUSCULAR HGB CONC 33 g/dL (31-37); MEAN CORPUSCULAR VOLUME 87 fL (79-100); MONO % 11 % (0-9); NEUT % 67 % (31-73); PLATELET COUNT 210 x10^3/uL (140-400); RED BLOOD COUNT 4.58 x10^6/uL (3.50-5.40)
[2017-07-08 10:30] LABS: CALCIUM 8.9 mg/dL (8.5-10.1); CREATININE 0.9 mg/dL (0.6-1.0); GFR 61.5; POTASSIUM 4.5 mmol/L (3.5-5.1)
[2017-07-08 10:36] LABS: ALBUMIN 3.5 g/dL (3.4-5.0); DIRECT BILIRUBIN 0.1 mg/dL (0.0-0.2); TOTAL BILIRUBIN 0.4 mg/dL (0.2-1.0); TOTAL PROTEIN 6.9 g/dL (6.4-8.2)
[2017-07-08 10:44] LABS: CKMB MASS 1.5 ng/mL (0.0-3.6)
--- NOTE | 2017-07-08 10:59 | RAD ---
Portable chest, 07/08/2017: History: Shortness of breath The diaphragm was not completely included on this exam. The patient is rotated to the left. The heart appears to be mildly enlarged. There is calcific plaquing of the aorta. The pulmonary vascularity is within normal limits. There are a few scattered parenchymal scars. No definite infiltrate is seen. No pleural fluid is evident. IMPRESSION: 1. Mild cardiomegaly and aortic atherosclerosis. 2. No acute abnormality is detected.
--- NOTE | 2017-07-08 11:16 | RAD ---
INDICATION: Right flank pain COMPARISON: None. TECHNIQUE: Axial CT images were obtained through the abdomen and pelvis without intravenous contrast. Limited assessment solid organ structures and vasculature secondary to lack of intravenous contrast. FINDINGS: 6-7 mm nodule at the right lower lung appears similar to chest CT from December 03, 2016. Severe calcific atherosclerosis. No intrahepatic bile duct dilation. No definite peripancreatic edema. Probable cystic lesion left kidney, 34 mm. No hydronephrosis. Urinary bladder is partially distended. No dilated loops of bowel to suggest obstruction. Appendix not well seen. Degenerative changes of spine. IMPRESSION: 1. No hydronephrosis or definite radiopaque obstructive ureter stone. 2. 6-7 mm right lower lung pulmonary nodule. A follow-up will be needed on a nonemergent basis to ensure no growth.. The patient's previously seen right middle lobe opacity can be reevaluated at that time as well. 3. Severe calcific atherosclerosis. PQRS Compliance Statement: One or more of the following individualized dose reduction techniques were utilized for this examination: 1. Automated exposure control 2. Adjustment of the mA and/or kV according to patient size 3. Use of iterative reconstruction technique
[2017-07-08] MEDS ORDERED: PROAIR HFA8.5 GM INH (11:43)
[2017-07-08] MEDS ORDERED: IBUP-1027 PO (11:43)
[2017-07-08] MEDS ORDERED: HYDR-2758 PO (11:43)
[2017-07-08] MEDS ORDERED: PRED50TA PO (11:43)
[2017-07-08 11:55] VITALS: BP 138/63
--- NOTE | 2017-07-08 12:30 | EKG ---
[facility] [address] [place] [address] Test Date: 2017-07-08 Test Time: 10:16:04 Pat Name: NOHEMY SCHREIBER Department: Room: Gender: F Corn Popper: : 1945 Requested By: HANNAH MACHADO Order Number: [id number] Reading MD: Emerita Ugalde Measurements Intervals Wallace Rate: 70 P: 63 IA: 176 QRS: 39 QRSD: 86 T: 51 QT: 400 QTc: 435 Interpretive Statements SINUS RHYTHM QRS(T) CONTOUR ABNORMALITY CONSIDER INFERIOR MYOCARDIAL DAMAGE Electronically Signed On 07-09-2017 19:30:28 CDT by Emerita Ugalde
== END 2017-07-08 11:58 | disposition home or self-care (01) ==
LOC: ER 09:30
DX: R10.30 Lower abdominal pain, unspecified (principal); G89.29 Other chronic pain; M54.5 Low back pain; R30.0 Dysuria; J44.1 Chronic obstructive pulmonary disease with (acute) exacerbation; I10 Essential (primary) hypertension; E78.00 Pure hypercholesterolemia, unspecified; Z90.710 Acquired absence of both cervix and uterus; Z88.0 Allergy status to penicillin
CPT/HCPCS: 36415; 71010; 74176; 80048; 80076; 81001; 82553; 83605; 83690; 83880; 84484; 85025; 87086; 93005; 94644; 96361; 96374; 96375; 99285; J1170; J2060; J2930; J7030; J7613; J7620; 94640

== ENCOUNTER 2020-06-19 18:59 | Emergency (ER) | payer MEDICARE, OTHER ==
[~2020-06-19] VITALS: Ht 160 cm; Wt 82.7 kg
[~2020-06-19 18:59] MED LIST changes: +ALBU2.5V8 INH; +HYDR-2761 PO; +IBUP-1027 PO; +PRED50TA PO; -PROAIR HFA8.5 GM INH; +SIMV20TA18 PO; -SIMV20TA3 PO
[2020-06-19] MEDS ORDERED: IV NORMAL SALINE 1000ML BAG 1,000 ML IV ONE (19:30)
[2020-06-19] MEDS ORDERED: MORPHINE SULFATE 2 MG/ML VIAL. IV ONE (19:30)
[2020-06-19] MEDS ORDERED: ONDANSETRON PF 4 MG/2 ML VIAL. IVP ONE (19:30)
--- NOTE | 2020-06-19 19:32 | PHYS DOC ---
Past Medical History Past Medical History: COPD, Depression, High Cholesterol, Hypertension Past Surgical History: Hysterectomy, Tonsillectomy Smoking Status: Current Every Day Smoker Alcohol Use: None Drug Use: None General Adult EDM: Chief Complaint: CONSTIPATION HPI: HPI: Patient is a 74 year old female who arrives with a chief complaint of 4 days of constipation and lower abdominal aching. Patient has some nausea but no vomiting. Patient states she has mild in intensity lower abdominal nonradiating pain that is mildly worse with palpation. Patient has a chronic cough that is unchanged. Patient does describe some shortness of breath due to the abdominal discomfort Review of Systems: Review of Systems: Constitutional: Denies fever or chills. [] Eyes: Denies change in visual acuity. [] HENT: Denies nasal congestion or sore throat. [] Respiratory: Patient has a chronic cough and mild shortness of breath Cardiovascular: Denies chest pain or edema. [] GI: Patient has lower abdominal pain and nausea but no vomiting diarrhea or blood in stool : Denies dysuria. [] Musculoskeletal: Denies back pain or joint pain. [] Integument: Denies rash. [] Neurologic: Denies headache, focal weakness or sensory changes. [] Endocrine: Denies polyuria or polydipsia. [] Lymphatic: Denies swollen glands. [] Psychiatric: Denies depression or anxiety. [] Heart Score: Risk Factors: Risk Factors: DM, Current or recent (<one month) smoker, HTN, HLP, family history of CAD, obesity. Risk Scores: Score 0 - 3: 2.5% MACE over next 6 weeks - Discharge Home Score 4 - 6: 20.3% MACE over next 6 weeks - Admit for Clinical Observation Score 7 - 10: 72.7% MACE over next 6 weeks - Early Invasive Strategies Current Medications: Current Medications Medications (Trade) Dose Ordered Sig/Lance Start Time Stop Time Status Last Admin Dose Admin Morphine Sulfate (Morphine Sulfate) 2 mg 1X ONCE 06/19/20 19:30 06/19/20 19:31 Ondansetron HCl (Zofran) 4 mg 1X ONCE 06/19/20 19:30 06/19/20 19:31 Sodium Chloride 1,000 ml @ 1,000 mls/hr 1X ONCE 06/19/20 19:30 06/19/20 20:29 Allergies: Allergies: Allergies Coded Allergies Type Severity Reaction Last Updated Verified Penicillins Allergy Intermediate RASH 07/08/17 Yes Physical Exam: PE: Constitutional: Well developed, well nourished, no acute distress, non-toxic appearance. [] HENT: Normocephalic, atraumatic, bilateral external ears normal, no trismus, nose normal. [] Eyes: PERRLA, EOMI, conjunctiva normal, no discharge. [] Neck: Normal range of motion, no tenderness, supple, no stridor. [] Cardiovascular:Heart rate regular rhythm, peripheral pulse intact cap refill is brisk Lungs & Thorax: Diminished bilateral breath sounds, no respiratory distress Abdomen: Soft without significant tenderness guarding or rebound no masses no pulsatile masses Skin: Warm, dry, no erythema, no rash. [] Back: No tenderness, no CVA tenderness. [] Extremities: No tenderness, no cyanosis, no clubbing, ROM intact, no edema. [] Neurologic: Alert and oriented X 3, normal motor function, normal sensory function, no focal deficits noted. [] Psychologic: Affect normal, judgement normal, mood normal. [] Current Patient Data: Labs: Laboratory Tests Test 06/19/20 19:40 06/19/20 20:40 White Blood Count 10.7 x10^3/uL Red Blood Count 4.55 x10^6/uL Hemoglobin 13.5 g/dL Hematocrit 38.5 % Mean Corpuscular Volume 85 fL Mean Corpuscular Hemoglobin 30 pg Mean Corpuscular Hemoglobin Concent 35 g/dL Red Cell Distribution Width 13.6 % Platelet Count 230 x10^3/uL Neutrophils (%) (Auto) 74 % Lymphocytes (%) (Auto) 14 % Monocytes (%) (Auto) 10 % Eosinophils (%) (Auto) 2 % Basophils (%) (Auto) 1 % Neutrophils # (Auto) 7.9 x10^3/uL Lymphocytes # (Auto) 1.5 x10^3/uL Monocytes # (Auto) 1.1 x10^3/uL Eosinophils # (Auto) 0.2 x10^3/uL Basophils # (Auto) 0.1 x10^3/uL Prothrombin Time 12.6 SEC Prothromb Time International Ratio 1.0 Activated Partial Thromboplast Time 33 SEC Sodium Level 130 mmol/L Potassium Level 4.2 mmol/L Chloride Level 93 mmol/L Carbon Dioxide Level 29 mmol/L Anion Gap 8 Blood Urea Nitrogen 11 mg/dL Creatinine 0.8 mg/dL Estimated GFR (Cockcroft-Gault) 69.9 BUN/Creatinine Ratio 14 Glucose Level 105 mg/dL Lactic Acid Level 1.4 mmol/L Calcium Level 9.2 mg/dL Total Bilirubin 0.2 mg/dL Aspartate Amino Transf (AST/SGOT) 17 U/L Alanine Aminotransferase (ALT/SGPT) 17 U/L Alkaline Phosphatase 97 U/L Total Protein 6.9 g/dL Albumin 3.4 g/dL Albumin/Globulin Ratio 1.0 Lipase 100 U/L Urine Collection Type Unknown Urine Color Straw Urine Clarity Clear Urine pH 6.5 Urine Specific [place] 1.010 Urine Protein Negative mg/dL Urine Glucose (UA) Negative mg/dL Urine Ketones (Stick) Negative mg/dL Urine Blood Negative Urine Nitrite Negative Urine Bilirubin Negative Urine Urobilinogen Dipstick 0.2 mg/dL Urine Leukocyte Esterase Negative Urine RBC Rare /HPF Urine WBC Rare /HPF Urine Squamous Epithelial Cells Many /LPF Urine Renal Epithelial Cells Occ /LPF Urine Bacteria Moderate /HPF Current Medications Medications (Trade) Dose Ordered Sig/Lance Route PRN Reason Start Time Stop Time Status Last Admin Dose Admin Ondansetron HCl (Zofran) 4 mg 1X ONCE IVP 06/19/20 19:30 06/19/20 19:31 DC 06/19/20 19:43 Sodium Chloride 1,000 ml @ 1,000 mls/hr 1X ONCE IV 06/19/20 19:30 06/19/20 20:29 DC 06/19/20 19:43 Morphine Sulfate (Morphine Sulfate) 2 mg 1X ONCE IV 06/19/20 19:30 06/19/20 19:31 DC 06/19/20 19:43 Iohexol (Omnipaque 300 Mg/ml) 75 ml 1X ONCE IV 06/19/20 20:15 06/19/20 20:17 DC 06/19/20 20:36 Info (CONTRAST GIVEN -- Rx MONITORING) 1 each PRN DAILY PRN MC SEE COMMENTS 06/19/20 20:30 06/21/20 20:29 Lactulose (LACTULOSE 300ML for RECTAL) 200 gm 1X ONCE [place] 06/19/20 21:45 06/19/20 21:46 DC 06/19/20 22:01 Vital Signs: Vital Signs Date Time Temp Pulse Resp B/P (MAP) Pulse Ox O2 Delivery O2 Flow Rate FiO2 06/19/20 19:10 98.0 100 30 185/79 (114) 95 Room Air 98.0 EKG: EKG: EKG interpreted by me normal sinus rhythm with rate of 95 inferior Q waves normal axis normal intervals nonspecific ST changes [] Radiology/Procedures: Radiology/Procedures: [][facility] [address] [address] IMAGING REPORT Signed PATIENT: NOHEMY SCHREIBER ACCOUNT: [id number] : 1945 LOCATION: ER AGE: 74 SEX: F EXAM STATUS: REG ER ORD. PHYSICIAN: ELYSE STEPHEN MD REASON: ABD PAIN, CONSTIPATION, OMNI 300, 75 ML IV PROCEDURE: CT ABD PELV W/ IV CONTRST ONLY Study: CT abdomen/pelvis with intravenous contrast Indication: Abdominal pain. Constipation. Comparison: 07/08/2017 Technique: Helical CT imaging performed of the abdomen and pelvis after the intravenous administration of 75 cc Omnipaque 300 contrast. Sagittal and coronal reformats were obtained. One or more of the following individualized dose reduction techniques were utilized for this examination: 1. Automated exposure control 2. Adjustment of the mA and/or kV according to patient size 3. Use of iterative reconstruction technique. Findings: A right lower lobe pulmonary nodule on image 2 series 2 is unchanged from 2017 measuring 4.5 mm. No dedicated follow-up is needed given stability. No focal hepatic parenchymal abnormality. Within normal limits gallbladder and biliary tree. No discrete abnormality of the pancreas or peripancreatic soft tissues. The spleen is normal in size. No adrenal gland mass. Unremarkable right kidney. Redemonstrated renal cystic focus on the left. No hydronephrosis. Mildly distended urinary bladder without wall thickening. Absent uterus. No adnexal mass. Mildly constipated state with the greatest degree of well-formed stool within the transverse colon. Small amount of incompletely formed stool within the proximal colon. The appendix is not well-visualized. Nonobstructed small bowel. Unremarkable stomach. No lymphadenopathy. No free fluid or pneumoperitoneum. Multifocal calcified and noncalcified atheromatous plaque involving the aorta and iliofemoral system. Similar extent of particularly dense calcific plaque at the proximal right common iliac artery with the exact degree of resultant stenosis difficult to determine given bolus timing. Unchanged mild ectasia of the distal abdominal aorta above the bifurcation measuring 2.4 cm. Patent central portal veins and superior mesenteric vein. Scattered degenerative osseous findings to include grade 1 anterolisthesis of L4 on L5 and mild broad lumbar levocurvature. No acute or aggressive osseous process. Impression: 1. No acute abnormality seen throughout the abdomen or pelvis. 2. Mild degree of constipation. No bowel obstruction. 3. Chronic findings as described in the body the report. Electronically signed by: CARMELA JEAN BAPTISTE MD (06/19/2020 9:05 PM) [id number] DICTATED and SIGNED BY: CARMELA JEAN BAPTISTE MD DATE: 06/19/202104 [facility] [address] [address] IMAGING REPORT Signed PATIENT: NOHEMY SCHREIBER ACCOUNT: [id number] : 1945 LOCATION: ER AGE: 74 SEX: F EXAM STATUS: REG ER ORD. PHYSICIAN: ELYSE STEPHEN MD REASON: COUGH PROCEDURE: PORTABLE CHEST 1V PORTABLE CHEST 1V History: Reason: COUGH / Spl. Instructions: / History: Comparison: July 08, 2017 Findings: Elevation of left hemidiaphragm. Blunting of the left costophrenic angle due to prominent epicardial fat. No consolidation. Mild bibasilar linear atelectasis. Normal heart size. Impression: 1. Mild bibasilar linear atelectasis. Electronically signed by: Shiraz Klein DO (06/19/2020 9:44 PM) [facility] DICTATED and SIGNED BY: SHIRAZ KLEIN DO DATE: 06/19/202143 Course & Med Decision Making: Course & Med Decision Making Pertinent Labs and Imaging studies reviewed. (See chart for details) [] Patient reassessed at 10:35 PM and is on the commode with some bowel movements present. 34-year-old female presents with abdominal discomfort constipation. Work-up is negative including a normal lactic acid, doubt ischemic colitis. Patient be treated for constipation. Return precautions given. Abdominal exam is very soft without guarding or rebound or significant tenderness.surgical emergency [facility] Disclaimer: Dora Disclaimer: This electronic medical record was generated, in whole or in part, using a voice recognition dictation system. Departure Departure Impression: Primary Impression: Constipation Additional Impression: Abdominal pain Disposition: 01 HOME, SELF-CARE Condition: STABLE Referrals: NICOLASA PATTON MD (PCP) 2-3 DAYS Patient Instructions: Abdominal Pain, Constipation, Adult Additional Instructions: EMERGENCY DEPARTMENT GENERAL DISCHARGE INSTRUCTIONS THANK YOU for coming to [facility] Emergency Department (ED) today and trusting us with your care. We trust that you had a positive experience in our Emergency Department. If you wish to speak to the department Management you can contact the emergency department clinician at . YOUR FOLLOW UP INSTRUCTIONS ARE FOLLOWS: Do you have a private doctor? If you do not have a private doctor, please ask for a resource list of physicians or clinics that may be able to assist you with follow up care. The Emergency Physician has interpreted your x-rays. The X-ray specialist will also review them. If there is a change in the findings you will be notified in 48 hours when at all possible. A lab test or lab culture may have been done, your results will be reviewed and you will be notified if you need a change in treatment. ADDITIONAL INSTRUCTIONS AND INFORMATION Your care today has been supervised by a physician who is specially trained in emergency care. Many problems require more than one evaluation for a complete diagnosis an d treatment. We recommend that you schedule your follow up appointment as recommended to ensure complete treatment of your illness or injury. If you are unable to obtain follow up care and continue to have a problem, or if your condition worsens we recommend that you return to the ED. We are not able to safely determine your condition over the phone nor are we able to give sound medical advice over the phone. For these safety reasons, if you call for medical advice we will ask you to come to the ED for further evaluation If you have any questions regarding these discharge instructions please call the ED at . SAFETY INFORMATION In the interest of safety, wellness, and injury prevention; we encourage you to wear your seatbelt, if you smoke; quit smoking, and we encourage your family to use protective helmet for bicycling and other sporting events that present an increased risk for head injury. IF YOUR SYMPTOMS WORSEN OR NEW SYMPTOMS DEVELOP, OR YOU HAVE CONCERNS ABOUT YOUR CONDITION; OR IF YOUR CONDITION WORSENS WHILE YOU ARE WAITING FOR YOUR FOLLOW UP APPOINTMENT; EITHER CONTACT YOUR PRIMARY CARE DOCTOR, THE PHYSICIAN WHOSE NAME AND NUMBER YOU WERE GIVEN, OR RETURN TO THE ED IMMEDIATELY. Scripts Lactulose (LACTULOSE) 20 Gm/30 Ml Solution 20 GM PO Q12HR, #360 ML Prov: ELYSE STEPHEN MD 06/19/20 ELYSE STEPHEN MD Jun 19, 2020 19:32
[2020-06-19 20:03] LABS: BASO # 0.1 x10^3/uL (0.0-0.2); BASO % 1 % (0-3); EOS # 0.2 x10^3/uL (0.0-0.7); EOS % 2 % (0-3); HEMATOCRIT 38.5 % (36.0-47.0); HEMOGLOBIN 13.5 g/dL (12.0-15.5); LYMPH # 1.5 x10^3/uL (1.0-4.8); LYMPH % 14 % (24-48); MEAN CORPUSCULAR HEMOGLOBIN 30 pg (25-35); MEAN CORPUSCULAR HGB CONC 35 g/dL (31-37); MEAN CORPUSCULAR VOLUME 85 fL (79-100); MONO # 1.1 x10^3/uL (0.0-1.1); MONO % 10 % (0-9); NEUT # 7.9 x10^3/uL (1.8-7.7); NEUT % 74 % (31-73); PLATELET COUNT 230 x10^3/uL (140-400); RED BLOOD COUNT 4.55 x10^6/uL (3.50-5.40); RED CELL DISTRIBUTION WIDTH 13.6 % (11.5-14.5); WHITE BLOOD COUNT 10.7 x10^3/uL (4.0-11.0)
[2020-06-19 20:06] LABS: PROTHROMBIN TIME PATIENT 12.6 SEC (11.7-14.0)
[2020-06-19 20:09] LABS: CALCIUM 9.2 mg/dL (8.5-10.1); CREATININE 0.8 mg/dL (0.6-1.0); GFR 69.9; POTASSIUM 4.2 mmol/L (3.5-5.1)
[2020-06-19 20:15] LABS: ALBUMIN 3.4 g/dL (3.4-5.0); TOTAL BILIRUBIN 0.2 mg/dL (0.2-1.0); TOTAL PROTEIN 6.9 g/dL (6.4-8.2)
[2020-06-19] MEDS ORDERED: IOHEXOL 300 MG/ML 100ML VIAL. IV ONE (20:15)
[2020-06-19] MEDS ORDERED: CONTRAST GIVEN. MC PRN (20:30)
[2020-06-19 20:56] LABS: BILIRUBIN,URINE NEGATIVE (NEG); CLARITY,URINE CLEAR; NITRITE,URINE NEGATIVE (NEG); PH,URINE 6.5 (<5.0-8.0); PROTEIN,URINE NEGATIVE (NEG-TRACE); UROBILINOGEN,URINE 0.2 mg/dL (0.2 mg/dL)
[2020-06-19 21:05] LABS: BACTERIA,URINE MODERATE /HPF (0-FEW)
[2020-06-19 21:06] LABS: COLOR,URINE STRAW; RBC,URINE RARE /HPF (0-2); WBC,URINE RARE /HPF (0-4)
--- NOTE | 2020-06-19 21:07 | RAD ---
Study: CT abdomen/pelvis with intravenous contrast Indication: Abdominal pain. Constipation. Comparison: 07/08/2017 Technique: Helical CT imaging performed of the abdomen and pelvis after the intravenous administration of 75 cc Omnipaque 300 contrast. Sagittal and coronal reformats were obtained. One or more of the following individualized dose reduction techniques were utilized for this examination: 1. Automated exposure control 2. Adjustment of the mA and/or kV according to patient size 3. Use of iterative reconstruction technique. Findings: A right lower lobe pulmonary nodule on image 2 series 2 is unchanged from 2017 measuring 4.5 mm. No dedicated follow-up is needed given stability. No focal hepatic parenchymal abnormality. Within normal limits gallbladder and biliary tree. No discrete abnormality of the pancreas or peripancreatic soft tissues. The spleen is normal in size. No adrenal gland mass. Unremarkable right kidney. Redemonstrated renal cystic focus on the left. No hydronephrosis. Mildly distended urinary bladder without wall thickening. Absent uterus. No adnexal mass. Mildly constipated state with the greatest degree of well-formed stool within the transverse colon. Small amount of incompletely formed stool within the proximal colon. The appendix is not well-visualized. Nonobstructed small bowel. Unremarkable stomach. No lymphadenopathy. No free fluid or pneumoperitoneum. Multifocal calcified and noncalcified atheromatous plaque involving the aorta and iliofemoral system. Similar extent of particularly dense calcific plaque at the proximal right common iliac artery with the exact degree of resultant stenosis difficult to determine given bolus timing. Unchanged mild ectasia of the distal abdominal aorta above the bifurcation measuring 2.4 cm. Patent central portal veins and superior mesenteric vein. Scattered degenerative osseous findings to include grade 1 anterolisthesis of L4 on L5 and mild broad lumbar levocurvature. No acute or aggressive osseous process. Impression: 1. No acute abnormality seen throughout the abdomen or pelvis. 2. Mild degree of constipation. No bowel obstruction. 3. Chronic findings as described in the body the report. Electronically signed by: CARMELA JEAN BAPTISTE MD (06/19/2020 9:05 PM) [id number]
[2020-06-19] MEDS ORDERED: LACTULOSE for RECTAL 200 GM/300 ML SOLUTION. PR ONE (21:45)
--- NOTE | 2020-06-19 21:46 | RAD ---
PORTABLE CHEST 1V History: Reason: COUGH / Spl. Instructions: / History: Comparison: July 08, 2017 Findings: Elevation of left hemidiaphragm. Blunting of the left costophrenic angle due to prominent epicardial fat. No consolidation. Mild bibasilar linear atelectasis. Normal heart size. Impression: 1. Mild bibasilar linear atelectasis. Electronically signed by: Shiraz Klein DO (06/19/2020 9:44 PM) [facility]
[2020-06-19] MEDS ORDERED: LACT20SO PO (22:41)
[2020-06-19 22:50] VITALS: BP 172/80
== END 2020-06-19 22:52 | disposition home or self-care (01) ==
LOC: ER 18:59
DX: K59.00 Constipation, unspecified (principal); R10.30 Lower abdominal pain, unspecified; R11.0 Nausea; R06.02 Shortness of breath; R05 Cough; J44.9 Chronic obstructive pulmonary disease, unspecified; E78.00 Pure hypercholesterolemia, unspecified; I10 Essential (primary) hypertension; F17.200 Nicotine dependence, unspecified, uncomplicated; Z90.710 Acquired absence of both cervix and uterus; Z88.0 Allergy status to penicillin
CPT/HCPCS: 36415; 71045; 74177; 80053; 81001; 83605; 83690; 85025; 85610; 85730; 87086; 96361; 96374; 96375; 99285; J2270; J2405; J7030; Q9967

== ENCOUNTER 2021-12-09 20:48 | Inpatient (IN) | payer MEDICARE ==
[~2021-12-09] VITALS: Ht 160 cm; Wt 72.5 kg
[~2021-12-09 20:48] MED LIST changes: +LACT20SO PO; -LISI-334 PO; +LISI20TA18 PO; +MIRT-8 PO; -MIRT30TA3 PO
--- NOTE | 2021-12-09 20:53 | PHYS DOC ---
Past Medical History Past Medical History: COPD, Depression, High Cholesterol, Hypertension Past Surgical History: Hysterectomy, Tonsillectomy Smoking Status: Current Every Day Smoker Alcohol Use: None Drug Use: None General Adult EDM: Chief Complaint: SHORTNESS OF BREATH HPI: HPI: Patient is a 76 year old who presents with multiple complaints. She lives in an independent living facility/apartment. She reports that for the past 2 3 days she has had a headache. No thunderclap headache reported. The pain has been progressive, feels like previous headaches. She has not taken any of her regular medications, including her antihypertensives for the past 2 or 3 days. She denies any fall, head injury, trauma, neck pain, back pain, syncope. She denies acute vision loss. She denies chest pain. She has chronic dyspnea, this is unchanged from baseline. She has a chronic cough, unchanged from baseline. No sputum production, no hemoptysis. She denies fevers or chills. She denies dizziness, diaphoresis, abdominal pain. She does report some nausea, no vomiting. Denies constipation or diarrhea. She denies urinary symptoms. She lives alone. She normally ambulates without difficulty. She reports just generalized fatigue and generalized weakness recently. She has been vaccinated against COVID-19. She denies any known sick contacts. No recent hospitalizations. She is post wear 2 L per nasal cannula supplemental oxygen. She reports that she only wears this at night, though previous records indicate that she supposed to wear it continuously. Review of Systems: Review of Systems: Constitutional: Denies fever or chills. [] Eyes: Denies change in visual acuity or vision loss. Denies ocular pain or aura. HENT: Denies nasal congestion or sore throat. [] Respiratory: Chronic and unchanged cough, no sputum changes reported. No hemoptysis reported. Chronic and unchanged dyspnea. Cardiovascular: Denies chest pain or edema. [] GI: Denies abdominal pain. Reports nausea, no vomiting. Denies constipation or diarrhea symptoms. : Denies urinary symptoms. Musculoskeletal: Denies back pain or joint pain. [] Integument: Denies rash. [] Neurologic: Reports global headache. Denies dizziness, vertigo, head injury, fall, syncope, denies numbness, tingling or focal motor weakness Psychiatric: Chronic and unchanged depression. Heart Score: C/O Chest Pain: No Risk Factors: Risk Factors: DM, Current or recent (<one month) smoker, HTN, HLP, family history of CAD, obesity. Risk Scores: Score 0 - 3: 2.5% MACE over next 6 weeks - Discharge Home Score 4 - 6: 20.3% MACE over next 6 weeks - Admit for Clinical Observation Score 7 - 10: 72.7% MACE over next 6 weeks - Early Invasive Strategies Allergies: Allergies: Allergies Coded Allergies Type Severity Reaction Last Updated Verified Penicillins Allergy Intermediate RASH 07/08/17 Yes Physical Exam: PE: Constitutional: Well developed, well nourished, resting comfortably. Chronically ill-appearing. HENT: Normocephalic, atraumatic, bilateral external ears normal, oropharynx moist, no oral exudates, nose normal. No dental or oral trauma. No facial swelling or edema noted. TMs are clear bilaterally. No hemotympanum. No otorrhea. Nares are patent and clear without rhinorrhea epistaxis Eyes: PERRL, EOMI, conjunctiva normal, no discharge. No nystagmus. Sclera anicteric. No periorbital edema or erythema or contusion Neck: Normal range of motion, no tenderness, supple, no stridor. He is midline, no JVD, no meningismus. No midline tenderness or step-offs Cardiovascular:Heart rate regular rhythm, was 2 radial and +2 posterior tibial pulses bilaterally Lungs & Thorax: Equal chest rise, no tachypnea, no respiratory distress, bilateral coarse rhonchi that clear with coughing. No wheezing, no stridor, speaks in full and clear sentences. No evidence of cyanosis. Abdomen: Abdomen is soft, nondistended, minimally tender to palpation of midepigastrium, this is inconsistent, repeat exam demonstrates no tenderness. No rebound tenderness, no guarding or rigidity. No palpable masses organomegaly. No palpable pulsatile mass. No CVA tenderness. No flank abdominal ecchymoses Skin: Warm, dry, no erythema, no rash. Open wounds. No jaundice. Back: No tenderness, no CVA tenderness. Midline tenderness or step-offs. Extremities: No tenderness, no cyanosis, no clubbing, ROM intact, no edema. No calf tenderness. Neurologic: She is awake, alert, oriented x3, cranial nerves II through XII grossly intact. Bilateral skein winder strength equal. She moves all 4 extremities equally. She does demonstrate diffuse but symmetric bilateral upper and lower extremity motor weakness. Sensation is grossly intact. Speech is clear and fluent. Psychologic: Affect is flat, she is cooperative EKG: EKG: EKG is interpreted at 2056 Rhythm is sinus Rate is 81 bpm [place] is normal No STEMI Radiology/Procedures: Radiology/Procedures: IMAGING REPORT Signed PATIENT: ONHEMY SCHREIBER ACCOUNT: [id number] : 1945 LOCATION: ER AGE: 76 SEX: F EXAM STATUS: PRE ER ORD. PHYSICIAN: GURU MARROQUIN DO REASON: cough PROCEDURE: PORTABLE CHEST 1V EXAMINATION: Chest radiograph. VIEWS: Single AP view of the chest COMPARISON: Radiograph from 06/19/[address] from 06/19/2020 INDICATION:76 years, Female, cough. FINDINGS: Normal cardiomediastinal silhouette. Similar elevation of the left hemidiaphragm. Similar blunting of the left costophrenic angle due to prominent pericardial fat. Prominent interstitial markings appear similar from priors. No acute osseous process. IMPRESSION: No acute cardiopulmonary process. Electronically signed by: Luis E Goldberg DO (12/09/2021 9:40 PM) [facility] DICTATED and SIGNED BY: LUIS E GOLDBERG DO DATE: 12/09/212137 IMAGING REPORT Signed PATIENT: NOHEMY SCHREIBER ACCOUNT: [id number] : 1945 LOCATION: ER AGE: 76 SEX: F EXAM STATUS: PRE ER ORD. PHYSICIAN: GURU MARROQUIN DO REASON: weakness, headache PROCEDURE: CT HEAD WO CONTRAST EXAMINATION: CT HEAD/BRAIN WO CLINICAL HISTORY: Weakness, headache. TECHNIQUE: Serial axial images without IV contrast were obtained from the vertex to the foramen magnum. CT Dose Reduction Employed: One or more of the following individualized dose reduction techniques were utilized for this examination: 1. Automated exposure control 2. Adjustment of the mA and/or kV according to patient size 3. Use of iterative reconstruction technique. COMPARISON: None FINDINGS: Acute Change: No evidence of an acute infarct or other acute parenchymal process. Hemorrhage: No evidence of acute intracranial hemorrhage. Mass Lesion/Mass Effect: No evidence of intracranial mass or extraaxial fluid c ollection. No significant mass effect. Chronic Change: Scattered patchy foci of hypoattenuation in the supratentorial white matter, nonspecific but likely represents mild microvascular ischemia. Atherosclerotic calcification of the intracranial portion of the bilateral internal carotid arteries. Parenchyma: Mild generalized volume loss. Ventricles: Ventricular enlargement concordant with degree of parenchymal volume loss. Paranasal Sinuses and Skull Base: Visualized paranasal sinuses clear. Visualized skull base and soft tissues unremarkable. IMPRESSION: No evidence of acute intracranial abnormality. Electronically signed by: Landon Alonso DO (12/09/2021 11:19 PM) [facility] DICTATED and SIGNED BY: LANDON ALONSO DO DATE: 12/09/212313 Course & Med Decision Making: Course & Med Decision Making Pertinent Labs and Imaging studies reviewed. (See chart for details) I discussed the findings, differential diagnosis and plan of care with the patient. The patient's pressure initially improved spontaneously without intervention, after she fell asleep. Her blood pressure did increase again, she was given her home dose of lisinopril, 20 mg. She is given IV Zofran for nausea. She is given Tylenol for her headache. She has been resting comfortably, continues to deny any active dyspnea, denies chest pain. No h ypoxia on her 2 L supplemental oxygen per nasal cannula. No obvious acute infiltrates or pneumonia on chest x-ray. She has no acute sputum changes, she is afebrile, no leukocytosis. She does demonstrate generalized, diffuse weakness and fatigue, I recommended hospitalization and admission, social work job titles consult, she may wish to discuss detention or higher level of care than what she has currently. She is comfortable with the plan of care. She is excepted for admission by Dr. Perez. Dora Disclaimer: Dora Disclaimer: This electronic medical record was generated, in whole or in part, using a voice recognition dictation system. Departure Departure Impression: Primary Impression: Chronic respiratory failure with hypoxia Additional Impressions: COPD (chronic obstructive pulmonary disease) Qualified Codes: J44.9 - Chronic obstructive pulmonary disease, unspecified Headache Qualified Codes: R51.9 - Headache, unspecified Chronic hypertension Generalized weakness Admitting Physician: HEATHER (Dr. Perez chronic hypoxic respiratory failure) Condition: STABLE Referrals: NICOLASA PATTON MD (PCP) GURU MARROQUIN DO Dec 09, 2021 20:53
[2021-12-09] MEDS ORDERED: cefTRIAXone IV Push 1 GM VIAL. IVP ONE (21:00)
[2021-12-09 21:23] LABS: BASO # 0.1 x10^3/uL (0.0-0.2); BASO % 1 % (0-3); EOS # 0.1 x10^3/uL (0.0-0.7); EOS % 1 % (0-3); HEMATOCRIT 41.5 % (36.0-47.0); HEMOGLOBIN 13.9 g/dL (12.0-15.5); LYMPH # 1.2 x10^3/uL (1.0-4.8); LYMPH % 13 % (24-48); MEAN CORPUSCULAR HEMOGLOBIN 29 pg (25-35); MEAN CORPUSCULAR HGB CONC 34 g/dL (31-37); MEAN CORPUSCULAR VOLUME 86 fL (79-100); MONO # 0.9 x10^3/uL (0.0-1.1); MONO % 10 % (0-9); NEUT % 76 % (31-73); PLATELET COUNT 211 x10^3/uL (140-400); RED CELL DISTRIBUTION WIDTH 13.4 % (11.5-14.5); WHITE BLOOD COUNT 9.2 x10^3/uL (4.0-11.0)
[2021-12-09 21:33] LABS: CALCIUM 9.4 mg/dL (8.5-10.1); GFR 53.8; POTASSIUM 4.1 mmol/L (3.5-5.1)
[2021-12-09 21:40] LABS: ALBUMIN 3.8 g/dL (3.4-5.0); ALBUMIN/GLOBULIN RATIO 0.9 (1.0-1.7); MAGNESIUM 1.9 mg/dL (1.8-2.4); TOTAL BILIRUBIN 0.5 mg/dL (0.2-1.0)
--- NOTE | 2021-12-09 21:43 | RAD ---
EXAMINATION: Chest radiograph. VIEWS: Single AP view of the chest COMPARISON: Radiograph from 06/19/[address] from 06/19/2020 INDICATION:76 years, Female, cough. FINDINGS: Normal cardiomediastinal silhouette. Similar elevation of the left hemidiaphragm. Similar blunting of the left costophrenic angle due to prominent pericardial fat. Prominent interstitial markings appear similar from priors. No acute osseous process. IMPRESSION: No acute cardiopulmonary process. Electronically signed by: Sascha Goldberg DO (12/09/2021 9:40 PM) [facility]
[2021-12-09 22:15] LABS: BACTERIA,URINE MODERATE /HPF (0-FEW)
[2021-12-09 22:19] LABS: INFLUENZA A PATIENT NEGATIVE (NEGATIVE); INFLUENZA B PATIENT NEGATIVE (NEGATIVE)
--- NOTE | 2021-12-09 23:22 | RAD ---
EXAMINATION: CT HEAD/BRAIN WO CLINICAL HISTORY: Weakness, headache. TECHNIQUE: Serial axial images without IV contrast were obtained from the vertex to the foramen magnu m. CT Dose Reduction Employed: One or more of the following individualized dose reduction techniques leanna e utilized for this examination: 1. Automated exposure control 2. Adjustment of the mA and/or kV ac cording to patient size 3. Use of iterative reconstruction technique. COMPARISON: None FINDINGS: Acute Change: No evidence of an acute infarct or other acute parenchymal process. Hemorrhage: No evidence of acute intracranial hemorrhage. Mass Lesion/Mass Effect: No evidence of intracranial mass or extraaxial fluid collection. No signific ant mass effect. Chronic Change: Scattered patchy foci of hypoattenuation in the supratentorial white matter, nonspeci fic but likely represents mild microvascular ischemia. Atherosclerotic calcification of the intracran ial portion of the bilateral internal carotid arteries. Parenchyma: Mild generalized volume loss. Ventricles: Ventricular enlargement concordant with degree of parenchymal volume loss. Paranasal Sinuses and Skull Base: Visualized paranasal sinuses clear. Visualized skull base and soft tissues unremarkable. IMPRESSION: No evidence of acute intracranial abnormality. Electronically signed by: Landon Styles DO (12/09/2021 11:19 PM) [facility]
[2021-12-10] MEDS ORDERED: ACETAMINOPHEN 500 MG TABLET PO ONE (00:30)
[2021-12-10] MEDS ORDERED: LISINOPRIL 10 MG TABLET PO ONE (00:30)
[2021-12-10] MEDS ORDERED: IV NORMAL SALINE 1000ML BAG 1,000 ML IV ONE ×2 (00:30→07:45)
[2021-12-10] MEDS ORDERED: ONDANSETRON PF 4 MG/2 ML VIAL. IVP ONE (00:30)
[2021-12-10 02:10] VITALS: BP 185/80
--- NOTE | 2021-12-10 04:01 | EKG ---
[facility] [address] [place] [address] Test Date: 2021-12-09 Test Time: 20:57:00 Pat Name: NOHEMY SCHREIBER Department: Room: [facility] Gender: F Mechanic Sound Technician: : 1945 Requested By: GURU MARROQUIN Order Number: [id number] Reading MD: Sanju Abdalla MD Measurements Intervals [place] Rate: 81 P: 47 MN: 188 QRS: 26 QRSD: 84 T: 55 QT: 386 QTc: 449 Interpretive Statements SINUS RHYTHM Electronically Signed On 12-12-2021 7:04:47 CDT by Sanju Abdalla MD
[2021-12-10 06:34] VITALS: BP 136/61
[2021-12-10] MEDS ORDERED: ALBUTEROL SULFATE 2.5 MG/3 ML NEBU. NEB PRN (07:45)
[2021-12-10] MEDS ORDERED: guaiFENesin DM 200MG/20MG 10 ML SYRUP PO PRN (07:45)
[2021-12-10] MEDS ORDERED: ONDANSETRON PF 4 MG/2 ML VIAL. IVP PRN (07:45)
[2021-12-10] MEDS ORDERED: ACETAMINOPHEN 325 MG TABLET. PO PRN (07:45)
[2021-12-10] MEDS: IPRATRPIUM/ALBUTEROL 0.5/2.5MG 3 ML NEBU. NEB SCH ×4 (08:01→20:46)
--- NOTE | 2021-12-10 08:39 | PDOC1 ---
History and Physical Date of Admission Date of Admission DATE: 12/10/21 TIME: 08:23 Identification/Chief Complaint Chief Complaint Shortness of breath Source Source: Chart review, Patient History of Present Illness History of Present Illness Ms Loja is a 76 year old female with PMHx COPD on home O2, depression, HLD, HTN, smoker who presents with multiple complaints. She contacted EMS due to progressive shortness of breath for over a day. She denies chest pain. She has chronic dyspnea and a chronic cough, progressed and worse from baseline. No sputum production, no hemoptysis. She has had a frontal headache for 3 days. Has been persistent and progressive like her previous headaches. She states the ambulance ride exacerbated the headache. She has not taken any of her regular medications, including her antihypertensives for the past 3 days due to malaise and weakness. She denies any fall, head injury, trauma, neck pain, back pain, syncope. She denies acute vision loss. She denies fevers or chills. She denies dizziness, diaphoresis, abdominal pain. She does report some nausea, no vomiting. Denies constipation or diarrhea. She denies urinary symptoms. She lives alone. She normally ambulates without difficulty. She reports just generalized fatigue and generalized weakness recently. She has been vaccinated against COVID-19. She denies any known sick contacts. No recent hospitalizations. She lives in an independent living facility/apartment. Labs with WBC 9.2, Hb 13.9, platelets 211, NA 129, K4.1, BUN 14, CR 1, glucose 101, lactic acid 0.7, magnesium 1.9, calcium 9.4, lipase 92, LFTs within normal laboratory limits, high-sensitivity troponin is 9, NT proBNP is 446, urinalysis is bland, rapid COVID-19 rapid influenza both negative. Noncontrast head CT with no acute abnormality Chest radiograph with prominent interstitial markings otherwise no acute process. EKG appears sinus rhythm with rate of 81 bpm normal axis and intervals no ST segment elevations or depressions no TWI, QTC 449 Past Medical History Cardiovascular: HTN, Hyperlipidemia Pulmonary: COPD Psych: Depression Past Surgical History Past Surgical History: Tonsillectomy, Hysterectomy Family History Family History: No Significant Social History Smoke: 1 pack per day ALCOHOL: none Drugs: None Current Problem List Problem List Problems Medical Problems: (1) Chronic hypertension Status: Acute (2) Chronic respiratory failure with hypoxia Status: Acute (3) COPD (chronic obstructive pulmonary disease) Status: Acute (4) Generalized weakness Status: Acute (5) Headache Status: Acute Current Medications Current Medications Current Medications Ceftriaxone Sodium (Rocephin) 2 gm 1X ONCE IVP ; Start 12/09/21 at 21:00; Stop 12/09/21 at 21:01; Status UNV Acetaminophen (Tylenol) 1,000 mg 1X ONCE PO Last administered on 12/10/21at 00:42; Start 12/10/21 at 00:30; Stop 12/10/21 at 00:31; Status DC Ondansetron HCl (Zofran) 4 mg 1X ONCE IVP Last administered on 12/10/21at 00:41; Start 12/10/21 at 00:30; Stop 12/10/21 at 00:31; Status DC Lisinopril (Prinivil) 20 mg 1X ONCE PO Last administered on 12/10/21at 00:42; Start 12/10/21 at 00:30; Stop 12/10/21 at 00:31; Status DC Sodium Chloride 1,000 ml @ 1,000 mls/hr 1X ONCE IV Last administered on 12/10/21at 00:40; Start 12/10/21 at 00:30; Stop 12/10/21 at 01:29; Status DC Acetaminophen (Tylenol) 650 mg PRN Q6HRS PRN PO MILD PAIN / TEMP > 100.3'F; Start 12/10/21 at 07:45 Albuterol Sulfate (Ventolin Neb Soln) 2.5 mg PRN Q4HRS PRN NEB SHORTNESS OF B REATH; Start 12/10/21 at 07:45 Albuterol/ Ipratropium (Duoneb) 3 ml RTQID NEB Last administered on 12/10/21at 08:01; Start 12/10/21 at 08:00 Guaifenesin (Robitussin Dm) 10 ml PRN Q6HRS PRN PO COUGH; Start 12/10/21 at 07:45 Ondansetron HCl (Zofran) 4 mg PRN Q4HRS PRN IVP NAUSEA/VOMITING Last administered on 12/10/21at 08:00; Start 12/10/21 at 07:45 Olanzapine (ZyPREXA ZYDIS) 5 mg PRN BID PRN PO ANXIETY / AGITATION; Start 12/10/21 at 07:45 Hydralazine HCl (Apresoline Inj) 10 mg PRN Q4HRS PRN IVP ELEVATED BP, SEE COMMENTS; Start 12/10/21 at 07:45 Heparin Sodium (Porcine) (Heparin Sodium) 5,000 unit Q8HRS SQ ; Start 12/10/21 at 14:00 Aspirin (Ecotrin) 81 mg DAILY PO ; Start 12/10/21 at 09:00 Docusate Sodium (Colace) 100 mg BID PO ; Start 12/10/21 at 09:00 Famotidine (Pepcid) 20 mg QHS PO ; Start 12/10/21 at 21:00 Lactulose (Lactulose) 20 gm Q12HR PO ; Start 12/10/21 at 09:00 Simvastatin (Zocor) 20 mg QHS PO ; Start 12/10/21 at 21:00 Mirtazapine (Remeron) 30 mg QHS PO ; Start 12/10/21 at 21:00 Sodium Chloride 1,000 ml @ 100 mls/hr 1X ONCE IV Last administered on 12/10/21at 07:45; Start 12/10/21 at 07:45; Stop 12/10/21 at 17:44 Active Scripts Active Lactulose 20 Gm/30 Ml Solution 20 Gm PO Q12HR Prednisone 50 Mg Tablet 1 Tab PO DAILY Proair Hfa Inhaler (Albuterol Sulfate) 8.5 Gm Hfa.aer.ad 1 Puff INH PRN Q6HRS PRN 5 Days Ibuprofen 400 Mg Tablet 400 Mg PO PRN Q6HRS PRN 10 Days Hydrocodone-Apap 5-325 (Hydrocodone Bit/Acetaminophen) 1 Each Tablet 1-2 Tab PO PRN Q6HRS PRN 5 Days Cefpodoxime Proxetil 100 Mg Tablet 200 Mg PO BID Famotidine 20 Mg Tablet 20 Mg PO QHS Prednisone 20 Mg Tablet 40 Mg PO DAILY Doxycycline Hyclate 100 Mg Tablet 100 Mg PO BID Colace (Docusate Sodium) 100 Mg Capsule 100 Mg PO BID Reported Aspir 81 (Aspirin) 81 Mg Tablet.dr 1 Tab PO DAILY Proair Hfa Inhaler (Albuterol Sulfate) 8.5 Gm Hfa.aer.ad 1 Puff INH PRN Q6HRS PRN Advair 500-50 Diskus (Fluticasone/Salmeterol) 1 Each Disk.w.dev 1 Puff IH BID Mirtazapine 30 Mg Tablet 1 Tab PO QHS Simvastatin 20 Mg Tablet 1 Tab PO QHS Lisinopril 20 Mg Tablet 1 Tab PO DAILY Allergies Allergies: Coded Allergies: Penicillins (Verified Allergy, Intermediate, RASH, 07/08/17) ROS General: YES: Fatigue, Malaise; No: Chills, Night Sweats, Appetite, Other PSYCHOLOGICAL ROS: No: Anxiety, Behavioral Disorder, Concentration difficultie, Decreased libido, Depression, Disorientation, Hallucinations, Hostility, Irritablity, Memory difficulties, Mood Swings, Obsessive thoughts, Physical abuse, Sexual abuse, Sleep disturbances, Suicidal ideation, Other Eyes: No Blurry vision, No Decreased vision, No Double vision, No Dry eyes, No Excessive tearing, No Eye Pain, No Itchy Eyes, No Loss of vision, No Photophobia, No Scotomata, No Uses contacts, No Uses glasses, No Other HEENT: No: Heacaches, Visual Changes, Hearing change, Nasal congestion, Nasal discharge, Oral lesions, Sinus pain, Sore Throat, Epistaxis, Sneezing, Snoring, Tinnitus, Vertigo, Vocal changes, Other ALLERGY AND IMMUNOLOGY: No: Hives, Insect Bite Sensitivity, Itchy/Watery Eyes, Nasal Congestion, Post Nasal Drip, Seasonal Allergies, Other Hematological and Lymphatic: No: Bleeding Problems, Blood Clots, Blood Transf usions, Brusing, Night Sweats, Pallor, Swollen Lymph Nodes, Other ENDOCRINE: No: Breast Changes, Galactorrhea, Hair Pattern Changes, Hot Flashes, Malaise/lethargy, Mood Swings, Palpitations, Polydipsia/polyuria, Skin Changes, Temperature Intolerance, Unexpected Weight Changes, Other Breast: No New/Changing Breast Lumps, No Nipple changes, No Nipple discharge, No Other Respiratory: YES: Cough, Shortness of breath, SOB with excertion; No: Hemoptysis, Orthopnea, Pleuritic Pain, Sputum Changes, Stridor, Tach ypnea, Wheezing, Other Cardiovascular: No Chest Pain, No Palpitations, No Orthopnea, No Paroxysmal Noc. Dyspnea, No Edema, No Lt Headedness, No Other Gastrointestinal: No Nausea, No Vomiting, No Abdominal Pain, No Diarrhea, No Constipation, No Melena, No Hematochezia, No Other Genitourinary: No Dysuria, No Frequency, No Incontinence, No Hematuria, No Retention, No Discharge, No Urgency, No Pain, No Flank Pain, No Other, No , No , No , No , No , No , No Musculoskeletal: No Gait Disturbance, No Joint Pain, No Joint Stiffness, No Joint Swelling, No Muscle Pain, No Muscular Weakness, No Pain In:, No Swelling In:, No Other Neurological: No Behavorial Changes, No Bowel/Bladder ControlChng, No Confusion, No Dizziness, No Gait Disturbance, No Headaches, No Impaired Coord/balance, No Memory Loss, No Numbness/Tingling, No Seizures, No Speech Problems, No Tremors, No Visual Changes, No Weakness, No Other Skin: No Dry Skin, No Eczema, No Hair Changes, No Lumps, No Mole Changes, No Mottling, No Nail Changes, No Pruritus, No Rash, No Skin Lesion Changes, No Other, No Acne Physical Exam General: Alert, Oriented X3, Cooperative, mild distress HEENT: Atraumatic, PERRLA, EOMI, Mucous membr. moist/pink Lungs: Other (Bilateral wheezes) Heart: S1S2, RRR, no thrills, no rubs, no gallops, no murmurs Abdomen: Normal bowel sounds, Soft, No tenderness, No hepatosplenomegaly, No masses Extremities: No clubbing, No cyanosis, No edema, Normal pulses, No tenderness/swelling Skin: No rashes, No breakdown, No significant lesion Neuro: Normal speech, Strength at 5/5 X4 ext, Normal tone, Sensation intact, Cranial nerves 3-12 NL, Reflexes 2+ Psych/Mental Status: Mental status NL, Mood NL Vitals Vitals Vital Signs Date Time Temp Pulse Resp B/P (MAP) Pulse Ox O2 Delivery O2 Flow Rate FiO2 12/10/21 08:01 97 Nasal Cannula 2.0 12/10/21 06:34 97.7 79 16 136/61 (86) 97.7 Labs Labs Laboratory Tests Test 12/09/21 21:01 12/09/21 21:55 12/09/21 21:56 White Blood Count 9.2 x10^3/uL (4.0-11.0) Red Blood Count 4.80 x10^6/uL (3.50-5.40) Hemoglobin 13.9 g/dL (12.0-15.5) Hematocrit 41.5 % (36.0-47.0) Mean Corpuscular Volume 86 fL (79-100) Mean Corpuscular Hemoglobin 29 pg (25-35) Mean Corpuscular Hemoglobin Concent 34 g/dL (31-37) Red Cell Distribution Width 13.4 % (11.5-14.5) Platelet Count 211 x10^3/uL (140-400) Neutrophils (%) (Auto) 76 % (31-73) Lymphocytes (%) (Auto) 13 % (24-48) Monocytes (%) (Auto) 10 % (0-9) Eosinophils (%) (Auto) 1 % (0-3) Basophils (%) (Auto) 1 % (0-3) Neutrophils # (Auto) 7.0 x10^3/uL (1.8-7.7) Lymphocytes # (Auto) 1.2 x10^3/uL (1.0-4.8) Monocytes # (Auto) 0.9 x10^3/uL (0.0-1.1) Eosinophils # (Auto) 0.1 x10^3/uL (0.0-0.7) Basophils # (Auto) 0.1 x10^3/uL (0.0-0.2) Sodium Level 129 mmol/L (136-145) Potassium Level 4.1 mmol/L (3.5-5.1) Chloride Level 96 mmol/L (98-107) Carbon Dioxide Level 30 mmol/L (21-32) Anion Gap 3 (6-14) Blood Urea Nitrogen 14 mg/dL (7-20) Creatinine 1.0 mg/dL (0.6-1.0) Estimated GFR (Cockcroft-Gault) 53.8 BUN/Creatinine Ratio 14 (6-20) Glucose Level 101 mg/dL (70-99) Lactic Acid Level 0.7 mmol/L (0.4-2.0) Calcium Level 9.4 mg/dL (8.5-10.1) Magnesium Level 1.9 mg/dL (1.8-2.4) Total Bilirubin 0.5 mg/dL (0.2-1.0) Aspartate Amino Transf (AST/SGOT) 13 U/L (15-37) Alanine Aminotransferase (ALT/SGPT) 21 U/L (14-59) Alkaline Phosphatase 97 U/L (46-116) Creatine Kinase 91 U/L (26-192) Troponin I High Sensitivity 9 ng/L (4-50) UR-Smr-S-Type Natriuretic Peptide 446 pg/mL (0-449) Total Protein 8.0 g/dL (6.4-8.2) Albumin 3.8 g/dL (3.4-5.0) Albumin/Globulin Ratio 0.9 (1.0-1.7) Lipase 92 U/L (73-393) Urine Collection Type U cath Urine Color (Auto) Light yellow Urine Turbidity Hazy Urine pH (Auto) 7.0 (<5.0-8.0) Urine Specific [place] 1.009 (1.000-1.030) Urine Protein (Auto) Negative mg/dL (Negative) Urine Glucose (Auto)(UA) Negative mg/dL (Negative) Urine Ketones (Auto) Negative mg/dL (Negative) Urine Blood (Auto) Negative (Negative) Urine Nitrite Negative (Negative) Urine Bilirubin (Auto) Negative (Negative) Urine Urobilinogen (Auto) Normal mg/dL (Normal) Urine Leukocyte Esterase (Auto) Negative (Negative) Urine RBC 3-5 /HPF (0-2) Urine WBC 1-4 /HPF (0-4) Urine Squamous Epithelial Cells Many /LPF Urine Bacteria Moderate /HPF (0-FEW) Urine Mucus Slight /LPF Influenza Type A Antigen Negative (NEGATIVE) Influenza Type B Antigen Negative (NEGATIVE) SARS-CoV-2 Antigen (Rapid) Negative (NEGATIVE) Laboratory Tests Test 12/09/21 21:01 12/09/21 21:55 12/09/21 21:56 White Blood Count 9.2 x10^3/uL (4.0-11.0) Red Blood Count 4.80 x10^6/uL (3.50-5.40) Hemoglobin 13.9 g/dL (12.0-15.5) Hematocrit 41.5 % (36.0-47.0) Mean Corpuscular Volume 86 fL (79-100) Mean Corpuscular Hemoglobin 29 pg (25-35) Mean Corpuscular Hemoglobin Concent 34 g/dL (31-37) Red Cell Distribution Width 13.4 % (11.5-14.5) Platelet Count 211 x10^3/uL (140-400) Neutrophils (%) (Auto) 76 % (31-73) Lymphocytes (%) (Auto) 13 % (24-48) Monocytes (%) (Auto) 10 % (0-9) Eosinophils (%) (Auto) 1 % (0-3) Basophils (%) (Auto) 1 % (0-3) Neutrophils # (Auto) 7.0 x10^3/uL (1.8-7.7) Lymphocytes # (Auto) 1.2 x10^3/uL (1.0-4.8) Monocytes # (Auto) 0.9 x10^3/uL (0.0-1.1) Eosinophils # (Auto) 0.1 x10^3/uL (0.0-0.7) Basophils # (Auto) 0.1 x10^3/uL (0.0-0.2) Sodium Level 129 mmol/L (136-145) Potassium Level 4.1 mmol/L (3.5-5.1) Chloride Level 96 mmol/L (98-107) Carbon Dioxide Level 30 mmol/L (21-32) Anion Gap 3 (6-14) Blood Urea Nitrogen 14 mg/dL (7-20) Creatinine 1.0 mg/dL (0.6-1.0) Estimated GFR (Cockcroft-Gault) 53.8 BUN/Creatinine Ratio 14 (6-20) Glucose Level 101 mg/dL (70-99) Lactic Acid Level 0.7 mmol/L (0.4-2.0) Calcium Level 9.4 mg/dL (8.5-10.1) Magnesium Level 1.9 mg/dL (1.8-2.4) Total Bilirubin 0.5 mg/dL (0.2-1.0) Aspartate Amino Transf (AST/SGOT) 13 U/L (15-37) Alanine Aminotransferase (ALT/SGPT) 21 U/L (14-59) Alkaline Phosphatase 97 U/L (46-116) Creatine Kinase 91 U/L (26-192) Troponin I High Sensitivity 9 ng/L (4-50) KR-Aow-O-Type Natriuretic Peptide 446 pg/mL (0-449) Total Protein 8.0 g/dL (6.4-8.2) Albumin 3.8 g/dL (3.4-5.0) Albumin/Globulin Ratio 0.9 (1.0-1.7) Lipase 92 U/L (73-393) Urine Collection Type U cath Urine Color (Auto) Light yellow Urine Turbidity Hazy Urine pH (Auto) 7.0 (<5.0-8.0) Urine Specific [place] 1.009 (1.000-1.030) Urine Protein (Auto) Negative mg/dL (Negative) Urine Glucose (Auto)(UA) Negative mg/dL (Negative) Urine Ketones (Auto) Negative mg/dL (Negative) Urine Blood (Auto) Negative (Negative) Urine Nitrite Negative (Negative) Urine Bilirubin (Auto) Negative (Negative) Urine Urobilinogen (Auto) Normal mg/dL (Normal) Urine Leukocyte Esterase (Auto) Negative (Negative) Urine RBC 3-5 /HPF (0-2) Urine WBC 1-4 /HPF (0-4) Urine Squamous Epithelial Cells Many /LPF Urine Bacteria Moderate /HPF (0-FEW) Urine Mucus Slight /LPF Influenza Type A Antigen Negative (NEGATIVE) Influenza Type B Antigen Negative (NEGATIVE) SARS-CoV-2 Antigen (Rapid) Negative (NEGATIVE) Images Images Chest radiograph: Normal cardiomediastinal silhouette. Similar elevation of the left hemidiaphragm. Similar blunting of the left costophrenic angle due to prominent pericardial fat. Prominent interstitial markings appear similar from priors. No acute osseous process. IMPRESSION: No acute cardiopulmonary process. CT HEAD WO CONTRAST: Acute Change: No evidence of an acute infarct or other acute parenchymal process. Hemorrhage: No evidence of acute intracranial hemorrhage. Mass Lesion/Mass Effect: No evidence of intracranial mass or extraaxial fluid collection. No significant mass effect. Chronic Change: Scattered patchy foci of hypoattenuation in the supratentorial white matter, nonspecific but likely represents mild microvascular ischemia. Atherosclerotic calcification of the intracranial portion of the bilateral internal carotid arteries. Parenchyma: Mild generalized volume loss. Ventricles: Ventricular enlargement concordant with degree of parenchymal volume loss. Paranasal Sinuses and Skull Base: Visualized paranasal sinuses clear. Visualized skull base and soft tissues unremarkable. IMPRESSION: No evidence of acute intracranial abnormality. VTE Prophylaxis Ordered VTE Prophylaxis Devices: Yes VTE Pharmacological Prophylaxi: Yes Assessment/Plan Assessment/Plan Acute on Chronic respiratory failure with hypoxia -likely COPD exacerbation possible element of interstitial pneumonia as well. Dyspnea -due to acute COPD exacerbation Headache -seems to be a tension headache. Resolved with NSAIDs Acute exacerbation of COPD (chronic obstructive pulmonary disease) -aggressive nebulizers. We will add steroids and doxycycline as she is producing sputum Acute Hyponatremia -due to malnutrition. Less likely concerning for it being due to pneumonia process. Will follow sodium trend Abnormal chest radiograph - interstitial prominence. Does not have the fine crackles associated with pulmonary fibrosis more likely this is due to emphysema. Hypertension, accelerated -continue home meds Generalized weakness -PT and OT to evaluate for her ability to go home Smoker -counseled for greater than 6 minutes on smoking cessation. Offered nicotine replacement therapy. She is not interested at this time. FEN - Regular diet PPX - lovenox FULL CODE Dispo - inpatient for above Justifications for Admission Other Justification LISBETH MILLS MD Dec 10, 2021 08:39
[2021-12-10] MEDS: ASPIRIN ENTERIC COATED 81 MG TABLET.DR. PO SCH (09:27)
[2021-12-10] MEDS: LACTULOSE 20 GM/30 ML SOLUTION. PO SCH ×2 (09:27→20:03)
[2021-12-10] MEDS: DOCUSATE SODIUM 100 MG CAPSULE. PO SCH ×2 (09:27→20:02)
[2021-12-10 11:00] VITALS: BP 169/64
[2021-12-10 15:00] VITALS: BP 152/53
[2021-12-10] MEDS: DOXYCYCLINE HYCLATE 100 MG TABLET PO SCH ×2 (15:27→20:02)
[2021-12-10] MEDS: methylPREDNISolone SOD SUCC PF 40 MG/ML VIAL. IV SCH ×2 (15:27→20:52)
[2021-12-10] MEDS: HEPARIN for SUB-Q USE 5,000 UNIT/ML VIAL. SQ SCH ×2 (15:31→20:53)
[2021-12-10 19:28] VITALS: BP 150/66
[2021-12-10] MEDS: SIMVASTATIN 20 MG TABLET PO SCH (20:02)
[2021-12-10] MEDS: MIRTAZAPINE 15 MG TABLET PO SCH (20:02)
[2021-12-10] MEDS: FAMOTIDINE 20 MG TABLET. PO SCH (20:02)
[2021-12-10 23:02] VITALS: BP 149/60
[2021-12-11 02:51] VITALS: BP 147/67
[2021-12-11] MEDS: methylPREDNISolone SOD SUCC PF 40 MG/ML VIAL. IV SCH ×3 (05:01→21:43)
[2021-12-11] MEDS: HEPARIN for SUB-Q USE 5,000 UNIT/ML VIAL. SQ SCH ×3 (05:02→21:48)
[2021-12-11 06:29] LABS: ALBUMIN 3.1 g/dL (3.4-5.0); ALBUMIN/GLOBULIN RATIO 0.8 (1.0-1.7); CALCIUM 9.2 mg/dL (8.5-10.1); CREATININE 0.7 mg/dL (0.6-1.0); GFR 81.1; POTASSIUM 4.2 mmol/L (3.5-5.1); TOTAL BILIRUBIN 0.3 mg/dL (0.2-1.0); TOTAL PROTEIN 6.8 g/dL (6.4-8.2)
[2021-12-11 07:00] VITALS: BP 178/78
[2021-12-11] MEDS: IPRATRPIUM/ALBUTEROL 0.5/2.5MG 3 ML NEBU. NEB SCH ×4 (07:41→19:56)
[2021-12-11] MEDS: DOXYCYCLINE HYCLATE 100 MG TABLET PO SCH ×2 (08:05→20:18)
[2021-12-11] MEDS: ASPIRIN ENTERIC COATED 81 MG TABLET.DR. PO SCH (08:05)
[2021-12-11] MEDS: DOCUSATE SODIUM 100 MG CAPSULE. PO SCH ×2 (08:05→20:20)
[2021-12-11] MEDS: LACTULOSE 20 GM/30 ML SOLUTION. PO SCH ×2 (08:06→20:18)
[2021-12-11 11:00] VITALS: BP 170/73
--- NOTE | 2021-12-11 11:46 | PDOC ---
[employer] PROGRESS NOTE Date of Service DOS: DATE: 12/11/21 TIME: 11:43 Chief Complaint Chief Complaint Acute on Chronic respiratory failure with hypoxia -likely COPD exacerbation possible element of interstitial pneumonia as well. Dyspnea -due to acute COPD exacerbation Headache -seems to be a tension headache. Resolved with NSAIDs Acute exacerbation of COPD (chronic obstructive pulmonary disease) -aggressive nebulizers. IV steroids and doxycycline as she is producing sputum Acute Hyponatremia -due to malnutrition. Less likely concerning for it being due to pneumonia process. Will follow sodium trend, improved Abnormal chest radiograph - interstitial prominence. Does not have the fine crackles associated with pulmonary fibrosis more likely this is due to emphysema. Hypertension, accelerated -continue home meds Generalized weakness -PT and OT to evaluate for her ability to go home. Smoker -counseled for greater than 6 minutes on smoking cessation. Offered nicotine replacement therapy. She is not interested at this time. FEN - Regular diet PPX - lovenox FULL CODE Dispo - inpatient for above History of Present Illness History of Present Illness Ms Loja is a 76 year old female with PMHx COPD on home O2, depression, HLD, HTN, smoker who presents with multiple complaints. She contacted EMS due to progressive shortness of breath for over a day. She denies chest pain. She has chronic dyspnea and a chronic cough, progressed and worse from baseline. No sputum production, no hemoptysis. She has had a frontal headache for 3 days. Has been persistent and progressive like her previous headaches. She states the ambulance ride exacerbated the headache. She has not taken any of her regular medications, including her antihypertensives for the past 3 days due to malaise and weakness. She denies any fall, head injury, trauma, neck pain, back pain, syncope. She denies acute vision loss. She denies fevers or chills. She denies dizziness, diaphoresis, abdominal pain. She does report some nausea, no vomiting. Denies constipation or diarrhea. She denies urinary symptoms. She lives alone. She normally ambulates without difficulty. She reports just generalized fatigue and generalized weakness recently. She has been vaccinated against COVID-19. She denies any known sick contacts. No recent hospitalizations. She lives in an independent living facility/apartment. Labs with WBC 9.2, Hb 13.9, platelets 211, NA 129, K4.1, BUN 14, CR 1, glucose 101, lactic acid 0.7, magnesium 1.9, calcium 9.4, lipase 92, LFTs within normal laboratory limits, high-sensitivity troponin is 9, NT proBNP is 446, urinalysis is bland, rapid COVID-19 rapid influenza both negative. Noncontrast head CT with no acute abnormality Chest radiograph with prominent interstitial markings otherwise no acute process. EKG appears sinus rhythm with rate of 81 bpm normal axis and intervals no ST segment elevations or depressions no TWI, QTC 449 12/11: Seen bedside still with some increased dyspnea and weakness needed for assistance to get up to the chair and restroom. Still on 3-1/2 L of oxygen with saturations 92 to 94%. She notes she only wears her oxygen at night at home. She ate a full breakfast. Concerning that she lives at home alone. Occupational therapy recommends home health. Awaiting physical therapy evalua tion. Vitals/I&O Vitals/I&O: Vital Signs Date Time Temp Pulse Resp B/P (MAP) Pulse Ox O2 Delivery O2 Flow Rate FiO2 12/11/21 11:00 97.7 67 19 170/73 (105) 92 Nasal Cannula 2.0 97.7 I & O0 12/10/21 12/10/21 12/11/21 15:00 23:00 07:00 Intake Total 1652 ml 0 ml Output Total 200 ml 150 ml Balance -200 ml 1502 ml 0 ml Physical Exam General: Alert, Oriented X3, Cooperative, mild distress Lungs: Other Abdomen: Normal bowel sounds, Soft, No tenderness, No hepatosplenomegaly, No masses Extremities: No clubbing, No cyanosis, No edema, Normal pulses, No tenderness/swelling Skin: No rashes, No breakdown, No significant lesion Labs Labs: Laboratory Tests Test 12/11/21 04:50 Sodium Level 137 mmol/L (136-145) Potassium Level 4.2 mmol/L (3.5-5.1) Chloride Level 100 mmol/L (98-107) Carbon Dioxide Level 31 mmol/L (21-32) Anion Gap 6 (6-14) Blood Urea Nitrogen 7 mg/dL (7-20) Creatinine 0.7 mg/dL (0.6-1.0) Estimated GFR (Cockcroft-Gault) 81.1 BUN/Creatinine Ratio 10 (6-20) Glucose Level 90 mg/dL (70-99) Calcium Level 9.2 mg/dL (8.5-10.1) Total Bilirubin 0.3 mg/dL (0.2-1.0) Aspartate Amino Transf (AST/SGOT) 19 U/L (15-37) Alanine Aminotransferase (ALT/SGPT) 17 U/L (14-59) Alkaline Phosphatase 81 U/L (46-116) Total Protein 6.8 g/dL (6.4-8.2) Albumin 3.1 g/dL (3.4-5.0) Albumin/Globulin Ratio 0.8 (1.0-1.7) Assessment and Plan Assessmemt and Plan Problems Medical Problems: (1) Chronic hypertension Status: Acute (2) Chronic respiratory failure with hypoxia Status: Acute (3) COPD (chronic obstructive pulmonary disease) Status: Acute (4) Generalized weakness Status: Acute (5) Headache Status: Acute Comment Review of Relevant I have reviewed the following items anand (where applicable) has been applied. Medications: Current Medications Medications (Trade) Dose Ordered Sig/Lance Route PRN Reason Start Time Stop Time Status Last Admin Dose Admin Heparin Sodium (Porcine) (Heparin Sodium) 5,000 unit Q8HRS SQ 12/10/21 14:00 12/11/21 05:02 Famotidine (Pepcid) 20 mg QHS PO 12/10/21 21:00 12/10/21 20:02 Simvastatin (Zocor) 20 mg QHS PO 12/10/21 21:00 12/10/21 20:02 Mirtazapine (Remeron) 30 mg QHS PO 12/10/21 21:00 12/10/21 20:02 Doxycycline Hyclate (Vibra-Tab) 100 mg BID PO 12/10/21 14:00 12/11/21 08:05 Methylprednisolone Sodium Succinate (SOLU-Medrol 40MG VIAL) 40 mg Q8HRS IV 12/10/21 14:15 12/11/21 05:01 Justifications for Admission Other Justification LISBETH MILLS MD Dec 11, 2021 11:46
[2021-12-11 14:41] VITALS: BP 187/59
[2021-12-11 19:38] VITALS: BP 189/87
[2021-12-11] MEDS: hydrALAZINE 20 MG/ML VIAL. IVP PRN (19:47)
[2021-12-11] MEDS: MIRTAZAPINE 15 MG TABLET PO SCH (20:18)
[2021-12-11] MEDS: FAMOTIDINE 20 MG TABLET. PO SCH (20:18)
[2021-12-11] MEDS: SIMVASTATIN 20 MG TABLET PO SCH (20:19)
[2021-12-11 22:46] VITALS: BP 150/71
[2021-12-12 03:04] VITALS: BP 181/64
[2021-12-12] MEDS: hydrALAZINE 20 MG/ML VIAL. IVP PRN (03:04)
[2021-12-12] MEDS: methylPREDNISolone SOD SUCC PF 40 MG/ML VIAL. IV SCH (05:53)
[2021-12-12] MEDS: HEPARIN for SUB-Q USE 5,000 UNIT/ML VIAL. SQ SCH (06:00)
[2021-12-12 06:12] LABS: CALCIUM 9.4 mg/dL (8.5-10.1); CREATININE 0.7 mg/dL (0.6-1.0); GFR 81.1; POTASSIUM 3.7 mmol/L (3.5-5.1)
[2021-12-12 07:00] VITALS: BP 140/61
[2021-12-12] MEDS: IPRATRPIUM/ALBUTEROL 0.5/2.5MG 3 ML NEBU. NEB SCH ×2 (07:30→11:30)
[2021-12-12] MEDS: LACTULOSE 20 GM/30 ML SOLUTION. PO SCH (08:18)
[2021-12-12] MEDS: ASPIRIN ENTERIC COATED 81 MG TABLET.DR. PO SCH (08:18)
[2021-12-12] MEDS: DOCUSATE SODIUM 100 MG CAPSULE. PO SCH (08:18)
[2021-12-12] MEDS: DOXYCYCLINE HYCLATE 100 MG TABLET PO SCH (08:20)
[2021-12-12 11:00] VITALS: BP 144/62
[2021-12-12] MEDS ORDERED: PRED20TA PO (11:05)
[2021-12-12] MEDS ORDERED: DOXY100T PO (11:05)
--- NOTE | 2021-12-12 11:07 | SNU/HH DC ---
DISCHARGE WITH HOME HEALTH DISCHARGE INFORMATION: Discharge Date: Dec 12, 2021 Final Diagnosis: Problems Medical Problems: (1) Chronic hypertension Status: Acute (2) Chronic respiratory failure with hypoxia Status: Acute (3) COPD (chronic obstructive pulmonary disease) Status: Acute (4) Generalized weakness Status: Acute (5) Headache Status: Acute Condition on Discharge: Stable CODE STATUS: Code Status: Full HOME HEALTH: Face to Face: I certify this patient is under my care and that I, or a nurse practitioner or physician's recreational assistant working with me, had a face to face encounter that meets the physician face to face encounter requirements with this patient on 12/12/2021. Senior Living For: Assess Cardiopulm Status, Assess/Skilled Observatio, Medication Management RN For Eval/Treatment: Yes Physical Therapy For: Evalulation/Treatment Occupational Therapy For: Evaluation/Treatment Pt Meets Homebound Status: Extreme weakness w/ amb., Limited distance walking POST DISCHARGE ORDERS: Activity Instructions for Disc: Activity as tolerated Weight Bearing Status after Di: As tolerated DIET AFTER DISCHARGE: Cardiac CHECKS AFTER DISCHARGE: Checks after discharge: Check blood press - daily, Check your Temp as needed, Weigh Yourself Daily FOLLOW-UP: Additional Instructions: Farooq Hoyos, and Ahmet [address] [place] [address] TREATMENT/EQUIPMENT ORDERS: Discharge Respiratory Equipmen: Oxygen (2 L/min at all times) CERTIFICATION STATEMENT: Certification Statement: Certification Statement: Based on the above finding, I certify that this patient is confined to the home and needs intermittent intermediate care, physical therapy and/or speech therapy, or continues to need occupational therapy.~ This patient is under my care, and I have initiated the establishment of the plan of care.~ This patient will be followed by myself or a community physician who will periodically review the plan of care. Home Meds Active Scripts Prednisone (PREDNISONE) 20 Mg Tablet, 20 MG PO DAILY for COPD for 5 Days, #5 TAB Prov:LISBETH MILLS MD 12/12/21 Doxycycline Hyclate (DOXYCYCLINE HYCLATE) 100 Mg Tablet, 100 MG PO BID for COPD for 5 Days, #10 TAB Prov:LISBETH MILLS MD 12/12/21 Lactulose (LACTULOSE) 20 Gm/30 Ml Solution, 20 GM PO Q12HR, #360 ML Prov:ELYSE STEPHEN MD 06/19/20 Albuterol Sulfate (PROAIR HFA INHALER) 8.5 Gm Hfa.aer.ad, 1 PUFF INH PRN Q6HRS PRN for SHORTNESS OF BREATH for 5 Days, INHALER 0 Refills Prov:HANNAH MACHADO MD 07/08/17 Famotidine (FAMOTIDINE) 20 Mg Tablet, 20 MG PO QHS, #10 TAB Prov:AME ESPINOZA MD 01/16/17 Docusate Sodium (COLACE) 100 Mg Capsule, 100 MG PO BID, #20 CAP Prov:AME ESPINOZA MD 01/16/17 Reported Medications Aspirin (ASPIR 81) 81 Mg Tablet.dr, 1 TAB PO DAILY, #30 TAB 5 Refills 01/12/17 Albuterol Sulfate (PROAIR HFA INHALER) 8.5 Gm Hfa.aer.ad, 1 PUFF INH PRN Q6HRS PRN for SHORTNESS OF BREATH, INHALER 0 Refills 11/25/16 Fluticasone/Salmeterol (ADVAIR 500-50 DISKUS) 1 Each Disk.w.dev, 1 PUFF IH BID, #1 INHALER 5 Refills 11/25/16 Mirtazapine (MIRTAZAPINE) 30 Mg Tablet, 1 TAB PO QHS, #30 TAB 11/25/16 Simvastatin (SIMVASTATIN) 20 Mg Tablet, 1 TAB PO QHS, #30 TAB 5 Refills 11/25/16 Discontinued Reported Medications Lisinopril (LISINOPRIL) 20 Mg Tablet, 1 TAB PO DAILY, #30 TAB 5 Refills 11/25/16 Discontinued Scripts Prednisone (PREDNISONE) 50 Mg Tablet, 1 TAB PO DAILY, #5 TAB Prov:HANNAH MACHADO MD 07/08/17 Ibuprofen (IBUPROFEN) 400 Mg Tablet, 400 MG PO PRN Q6HRS PRN for INFLAMMATION for 10 Days, TAB Prov:HANNAH MACHADO MD 07/08/17 Hydrocodone Bit/Acetaminophen (HYDROCODONE-APAP 5-325 ) 1 Each Tablet, 1-2 TAB PO PRN Q6HRS PRN for PAIN for 5 Days, #10 TAB 0 Refills Prov:HANNAH MACHADO MD 10/23/17 Cefpodoxime Proxetil (CEFPODOXIME PROXETIL) 100 Mg Tablet, 200 MG PO BID, #20 TAB Prov:AME ESPINOZA MD 01/17/17 LISBETH MILLS MD Dec 12, 2021 11:06
--- NOTE | 2021-12-12 11:21 | PDOC ---
[employer] PROGRESS NOTE Date of Service DOS: DATE: 12/12/21 TIME: 11:07 Chief Complaint Chief Complaint Acute on Chronic respiratory failure with hypoxia -likely COPD exacerbation possible element of interstitial pneumonia as well. Dyspnea -due to acute COPD exacerbation Headache -seems to be a tension headache. Resolved with NSAIDs Acute exacerbation of COPD (chronic obstructive pulmonary disease) -aggressive nebulizers. IV steroids and doxycycline as she is producing sputum Acute Hyponatremia -due to malnutrition. Less likely concerning for it being due to pneumonia process. Will follow sodium trend, improved Abnormal chest radiograph - interstitial prominence. Does not have the fine crackles associated with pulmonary fibrosis more likely this is due to emphysema. Hypertension, accelerated -continue home meds Generalized weakness -PT and OT to evaluate for her ability to go home. Smoker -counseled for greater than 6 minutes on smoking cessation. Offered nicotine replacement therapy. She is not interested at this time. FEN - Regular diet PPX - lovenox FULL CODE Dispo - inpatient for above History of Present Illness History of Present Illness Ms Loja is a 76 year old female with PMHx COPD on home O2, depression, HLD, HTN, smoker who presents with multiple complaints. She contacted EMS due to progressive shortness of breath for over a day. She denies chest pain. She has chronic dyspnea and a chronic cough, progressed and worse from baseline. No sputum production, no hemoptysis. She has had a frontal headache for 3 days. Has been persistent and progressive like her previous headaches. She states the ambulance ride exacerbated the headache. She has not taken any of her regular medications, including her antihypertensives for the past 3 days due to malaise and weakness. She denies any fall, head injury, trauma, neck pain, back pain, syncope. She denies acute vision loss. She denies fevers or chills. She denies dizziness, diaphoresis, abdominal pain. She does report some nausea, no vomiting. Denies constipation or diarrhea. She denies urinary symptoms. She lives alone. She normally ambulates without difficulty. She reports just generalized fatigue and generalized weakness recently. She has been vaccinated against COVID-19. She denies any known sick contacts. No recent hospitalizations. She lives in an independent living facility/apartment. Labs with WBC 9.2, Hb 13.9, platelets 211, NA 129, K4.1, BUN 14, CR 1, glucose 101, lactic acid 0.7, magnesium 1.9, calcium 9.4, lipase 92, LFTs within normal laboratory limits, high-sensitivity troponin is 9, NT proBNP is 446, urinalysis is bland, rapid COVID-19 rapid influenza both negative. Noncontrast head CT with no acute abnormality Chest radiograph with prominent interstitial markings otherwise no acute process. EKG appears sinus rhythm with rate of 81 bpm normal axis and intervals no ST segment elevations or depressions no TWI, QTC 449 12/11: Seen bedside still with some increased dyspnea and weakness needed for assistance to get up to the chair and restroom. Still on 3-1/2 L of oxygen with saturations 92 to 94%. She notes she only wears her oxygen at night at home. She ate a full breakfast. Concerning that she lives at home alone. Occupational therapy recommends home health. Physical therapy [facility]. Patient wants to go home. 12/12: Seen bedside with improvement in her dyspnea. Strength. Clearly she requires 2 L/min nasal cannula oxygen at all times counseled on this and smoking cessation. She wishes to go home with home health and does have her sister who frequently checks on her at home. Will go home on doxycycline and prednisone. Referred for outpatient pulmonology follow-up Vitals/I&O Vitals/I&O: Vital Signs Date Time Temp Pulse Resp B/P (MAP) Pulse Ox O2 Delivery O2 Flow Rate FiO2 12/12/21 08:00 Nasal Cannula 2.0 12/12/21 07:31 92 12/12/21 07:00 97.2 75 19 140/61 (87) 97.2 I & O 12/11/21 12/11/21 12/12/21 15:00 23:00 07:00 Intake Total 230 ml 380 ml 0 ml Output Total 300 ml Balance 230 ml 80 ml 0 ml Physical Exam General: Alert, Oriented X3, Cooperative, mild distress Lungs: Other Abdomen: Normal bowel sounds, Soft, No tenderness, No hepatosplenomegaly, No masses Extremities: No clubbing, No cyanosis, No edema, Normal pulses, No tenderness/swelling Skin: No rashes, No breakdown, No significant lesion Labs Labs: Laboratory Tests Test 12/12/21 04:35 Sodium Level 140 mmol/L (136-145) Potassium Level 3.7 mmol/L (3.5-5.1) Chloride Level 101 mmol/L (98-107) Carbon Dioxide Level 30 mmol/L (21-32) Anion Gap 9 (6-14) Blood Urea Nitrogen 11 mg/dL (7-20) Creatinine 0.7 mg/dL (0.6-1.0) Estimated GFR (Cockcroft-Gault) 81.1 Glucose Level 115 mg/dL (70-99) Calcium Level 9.4 mg/dL (8.5-10.1) Assessment and Plan Assessmemt and Plan Problems Medical Problems: (1) Chronic hypertension Status: Acute (2) Chronic respiratory failure with hypoxia Status: Acute (3) COPD (chronic obstructive pulmonary disease) Status: Acute (4) Generalized weakness Status: Acute (5) Headache Status: Acute Comment Review of Relevant I have reviewed the following items anand (where applicable) has been applied. Justifications for Admission Other Justification LISBETH MILLS MD Dec 12, 2021 11:21
--- NOTE | 2021-12-12 11:24 | PDOC3 ---
Discharge Summary Visit Information Date of Admission: Dec 10, 2021 Date of Discharge: Dec 12, 2021 Admitting Diagnosis: Acute COPD exacerbation, acute hypoxia Final Diagnosis Problems Medical Problems: (1) Chronic hypertension Status: Acute (2) Chronic respiratory failure with hypoxia Status: Acute (3) COPD (chronic obstructive pulmonary disease) Status: Acute (4) Generalized weakness Status: Acute (5) Headache Status: Acute Brief Hospital Course Allergies Allergies Coded Allergies Type Severity Reaction Last Updated Verified Penicillins Allergy Intermediate RASH 07/08/17 Yes Vital Signs Vital Signs Date Time Temp Pulse Resp B/P (MAP) Pulse Ox O2 Delivery O2 Flow Rate FiO2 12/12/21 08:00 Nasal Cannula 2.0 12/12/21 07:31 92 12/12/21 07:00 97.2 75 19 140/61 (87) 97.2 Lab Results Laboratory Tests Test 12/11/21 04:50 12/12/21 04:35 Sodium Level 137 mmol/L (136-145) 140 mmol/L (136-145) Potassium Level 4.2 mmol/L (3.5-5.1) 3.7 mmol/L (3.5-5.1) Chloride Level 100 mmol/L (98-107) 101 mmol/L (98-107) Carbon Dioxide Level 31 mmol/L (21-32) 30 mmol/L (21-32) Anion Gap 6 (6-14) 9 (6-14) Blood Urea Nitrogen 7 mg/dL (7-20) 11 mg/dL (7-20) Creatinine 0.7 mg/dL (0.6-1.0) 0.7 mg/dL (0.6-1.0) Estimated GFR (Cockcroft-Gault) 81.1 81.1 BUN/Creatinine Ratio 10 (6-20) Glucose Level 90 mg/dL (70-99) 115 mg/dL (70-99) Calcium Level 9.2 mg/dL (8.5-10.1) 9.4 mg/dL (8.5-10.1) Total Bilirubin 0.3 mg/dL (0.2-1.0) Aspartate Amino Transf (AST/SGOT) 19 U/L (15-37) Alanine Aminotransferase (ALT/SGPT) 17 U/L (14-59) Alkaline Phosphatase 81 U/L (46-116) Total Protein 6.8 g/dL (6.4-8.2) Albumin 3.1 g/dL (3.4-5.0) Albumin/Globulin Ratio 0.8 (1.0-1.7) Laboratory Tests Test 12/12/21 04:35 Sodium Level 140 mmol/L (136-145) Potassium Level 3.7 mmol/L (3.5-5.1) Chloride Level 101 mmol/L (98-107) Carbon Dioxide Level 30 mmol/L (21-32) Anion Gap 9 (6-14) Blood Urea Nitrogen 11 mg/dL (7-20) Creatinine 0.7 mg/dL (0.6-1.0) Estimated GFR (Cockcroft-Gault) 81.1 Glucose Level 115 mg/dL (70-99) Calcium Level 9.4 mg/dL (8.5-10.1) Brief Hospital Course Ms Loja is a 76 year old female with PMHx COPD on home O2, depression, HLD, HTN, smoker who presents with multiple complaints. She contacted EMS due to progressive shortness of breath for over a day. She denies chest pain. She has chronic dyspnea and a chronic cough, progressed and worse from baseline. No sputum production, no hemoptysis. She has had a frontal headache for 3 days. Has been persistent and progressive like her previous headaches. She states the ambulance ride exacerbated the h eadache. She has not taken any of her regular medications, including her antihypertensives for the past 3 days due to malaise and weakness. She denies any fall, head injury, trauma, neck pain, back pain, syncope. She denies acute vision loss. She denies fevers or chills. She denies dizziness, diaphoresis, abdominal pain. She does report some nausea, no vomiting. Denies constipation or diarrhea. She denies urinary symptoms. She lives alone. She normally ambulates without difficulty. She reports just generalized fatigue and generalized weakness recently. She has been vaccinated against COVID-19. She denies any known sick contacts. No recent hospitalizations. She lives in an independent living facility/apartment. Labs with WBC 9.2, Hb 13.9, platelets 211, NA 129, K4.1, BUN 14, CR 1, glucose 101, lactic acid 0.7, magnesium 1.9, calcium 9.4, lipase 92, LFTs within normal laboratory limits, high-sensitivity troponin is 9, NT proBNP is 446, urinalysis is bland, rapid COVID-19 rapid influenza both negative. Noncontrast head CT with no acute abnormality Chest radiograph with prominent interstitial markings otherwise no acute proc ess. EKG appears sinus rhythm with rate of 81 bpm normal axis and intervals no ST segment elevations or depressions no TWI, QTC 449 12/11: Seen bedside still with some increased dyspnea and weakness needed for assistance to get up to the chair and restroom. Still on 3-1/2 L of oxygen with saturations 92 to 94%. She notes she only wears her oxygen at night at home. She ate a full breakfast. Concerning that she lives at home alone. Occupational therapy recommends home health. Physical therapy evaluation recommends SNF. Patient wants to go home. 12/12: Seen bedside with improvement in her dyspnea. Strength. Clearly she requires 2 L/min nasal cannula oxygen at all times counseled on this and smoking cessation. She wishes to go home with home health and does have her sister who frequently checks on her at home. Will go home on doxycycline and prednisone. Referred for outpatient pulmonology follow-up Problem list: Acute on Chronic respiratory failure with hypoxia -likely COPD exacerbation possible element of interstitial pneumonia as well. Dyspnea -due to acute COPD exacerbation Headache -seems to be a tension headache. Resolved with NSAIDs Acute exacerbation of COPD (chronic obstructive pulmonary disease) -aggressive nebulizers. IV steroids and doxycycline as she is producing sputum Acute Hyponatremia -due to malnutrition. Less likely concerning for it being due to pneumonia process. Will follow sodium trend, improved Abnormal chest radiograph - interstitial prominence. Does not have the fine crackles associated with pulmonary fibrosis more likely this is due to emphysema. Hypertension, accelerated -continue home meds Generalized weakness -PT and OT to evaluate for her ability to go home. Smoker -counseled for greater than 6 minutes on smoking cessation. Offered nicotine replacement therapy. She is not interested at this time. Greater than 30 minutes spent on d/c home with home health Discharge Information Condition at Discharge: Improved Follow Up: Weeks (1) Disposition/Orders: D/C to Home w/ HH Scheduled Aspirin (Aspir 81) 81 Mg Tablet., 1 TAB PO DAILY, #30 Ref 5 (Reported) Entered as Reported by: SUMMER LAZAR on 01/12/17 6120 Last Action: Continued on 12/10/21 0742 by LISBETH MILLS MD Docusate Sodium (Colace) 100 Mg Capsule, 100 MG PO BID, #20 Prescribed by: AME ESPINOZA MD on 01/16/17 1320 Last Action: Continued on 12/10/21 0742 by LISBETH MILLS MD Doxycycline Hyclate (Doxycycline Hyclate) 100 Mg Tablet, 100 MG PO BID for COPD for 5 Days, #10 Prescribed by: LISBETH MILLS MD on 12/12/21 1105 Famotidine (Famotidine) 20 Mg Tablet, 20 MG PO QHS, #10 Prescribed by: AME ESPINOZA MD on 01/16/17 1320 Last Action: Continued on 12/10/21741 by LISBETH MILLS MD Fluticasone/Salmeterol (Advair 500-50 Diskus) 1 Each Disk.w.dev, 1 PUFF IH BID, #1 Ref 5 (Reported) Entered as Reported by: Gurmeet Kaiser on 11/25/16 1139 Lactulose (Lactulose) 20 Gm/30 Ml Solution, 20 GM PO Q12HR, #360 Prescribed by: ELYSE STEPHEN MD on 06/19/20 2241 Last Action: Reviewed on 12/10/21 1111 by RADHA MAHER RN Mirtazapine (Mirtazapine) 30 Mg Tablet, 1 TAB PO QHS, #30 (Reported) Entered as Reported by: Gurmeet Kaiser on 11/25/16 1139 Last Action: Reviewed on 12/10/21 1111 by RADHA MAHER RN Prednisone (Prednisone) 20 Mg Tablet, 20 MG PO DAILY for COPD for 5 Days, #5 Prescribed by: LISBETH MILLS MD on 12/12/21 1105 Simvastatin (Simvastatin) 20 Mg Tablet, 1 TAB PO QHS, #30 Ref 5 (Reported) Entered as Reported by: Gurmeet Kaiser on 11/25/16 113 Last Action: Continued on 12/10/21 0742 by LISBETH MILLS MD Scheduled PRN Albuterol Sulfate (Proair Hfa Inhaler) 8.5 Gm Hfa.aer.ad, 1 PUFF INH PRN Q6HRS PRN for SHORTNESS OF BREATH, Ref 0 (Reported) Entered as Reported by: Gurmeet Kaiser on 11/25/16 1139 Last Action: Reviewed on 12/10/21 1111 by RADHA MAHER RN Albuterol Sulfate (Proair Hfa Inhaler) 8.5 Gm Hfa.aer.ad, 1 PUFF INH PRN Q6HRS PRN for SHORTNESS OF BREATH for 5 Days, Ref 0 Prescribed by: HANNAH LOPEZ MD on 07/08/17 1143 Last Action: Reviewed on 12/10/21 1111 by RADHA MAHER RN Discontinued Medications Cefpodoxime Proxetil (Cefpodoxime Proxetil) 100 Mg Tablet, 200 MG PO BID, #20 Prescribed by: AME ESPINOZA MD on 01/17/17 1612 Hydrocodone Bit/Acetaminophen (Hydrocodone-Apap 5-325 ) 1 Each Tablet, 1-2 TAB PO PRN Q6HRS PRN for PAIN for 5 Days, #10 Ref 0 Prescribed by: HANNAH LOPEZ MD on 07/08/17 1143 Ibuprofen (Ibuprofen) 400 Mg Tablet, 400 MG PO PRN Q6HRS PRN for INFLAMMATION for 10 Days Prescribed by: HANNAH LOPEZ MD on 07/08/17 1143 Lisinopril (Lisinopril) 20 Mg Tablet, 1 TAB PO DAILY, #30 Ref 5 (Reported) Entered as Reported by: Gurmeet Kaiser on 11/25/16 113 Last Action: Reviewed on 12/10/21 1111 by RADHA MAHER RN Prednisone (Prednisone) 50 Mg Tablet, 1 TAB PO DAILY, #5 Prescribed by: HANNAH LOPEZ MD on 07/08/17 1143 Justicifation of Admission Dx: Justifications for Admission: Justification of Admission Dx: Yes LISBETH MILLS MD Dec 12, 2021 11:24
--- NOTE | 2021-12-12 13:08 | NUR ---
Pt provided with discharge instructions, tele and IV were removed. Pt taken by wheelchair by RN accomapnied by family member to vehicle.
--- NOTE | 2021-12-12 14:24 | NUR ---
SS received discharge orders for home with home healthcare. Discharge orders and referral sent to [facility], ; fax [phone].
== END 2021-12-12 11:59 | disposition home health service (06) | DRG 189 ==
LOC: ER 20:48 → 6 SOUTH 12-10 00:05
PROVIDERS: ADMIT Internal Medicine; ATTEND Internal Medicine
DX: J96.21 Acute and chronic respiratory failure with hypoxia (principal); E87.1 Hypo-osmolality and hyponatremia; E46 Unspecified protein-calorie malnutrition; J84.9 Interstitial pulmonary disease, unspecified; E78.00 Pure hypercholesterolemia, unspecified; E78.5 Hyperlipidemia, unspecified; F17.210 Nicotine dependence, cigarettes, uncomplicated; G44.209 Tension-type headache, unspecified, not intractable; I10 Essential (primary) hypertension; J43.9 Emphysema, unspecified; Z90.710 Acquired absence of both cervix and uterus; Z99.81 Dependence on supplemental oxygen; F32.A Depression, unspecified; Z90.49 Acquired absence of other specified parts of digestive tract; Z88.0 Allergy status to penicillin; Z68.28 Body mass index [BMI] 28.0-28.9, adult
CPT/HCPCS: 36415; 70450; 71045; 80048; 80053; 81001; 82550; 83605; 83690; 83735; 83880; 84484; 85025; 87040; 87086; 87428; 93005; 94640; 96361; 96374; 99406; J0360; J1644; J2405; J2920; J7030; 97116-GP; 97530-GO; 99285-25; G0378